=== PATIENT | female | born 1995 | race Caucasian/White ===

== ENCOUNTER 2020-01-08 08:35 | Outpatient (RCR) | payer OTHER, SELFPAY ==
[2020-01-08 10:11] LABS: Hematocrit 34.8 % (37.0-47.0); Hemoglobin 11.8 g/dL (12.0-15.0)
[2020-01-08 10:15] LABS: Glucose 1 Hour PP 50gm Dose 106 mg/dL
[2020-01-08 10:56] LABS: HIV 1/2 Ab P24 Ag Result Negative (Negative)
[2020-01-09 07:29] LABS: Rapid Plasma Reagin Non-Reactive (NonReactive)
[2020-01-09] MEDS: RHO(D) IMMUNE GLOBULIN 300 MCG SYRINGE IM (09:39)
== END 2020-04-06 23:59 | disposition home or self-care (01) ==
LOC: ANHLAB 08:35
PROVIDERS: PCP Family Medicine; Visit Provider Obstetrics & Gynecology
DX: Z29.13 Encounter for prophylactic Rho(D) immune globulin (principal); Z11.4 Encounter for screening for human immunodeficiency virus [HIV]; O36.0130 Maternal care for anti-D [Rh] antibodies, third trimester, not applicable or unspecified; Z3A.00 Weeks of gestation of pregnancy not specified
CPT/HCPCS: 36415; 82947; 85014; 85018; 85461; 86592; 86703; 90384; 96372; G0432; J2790

== ENCOUNTER 2020-02-09 13:24 | Observation (INO) | payer OTHER, SELFPAY ==
--- NOTE | 2020-02-09 13:24 | OBADM ---
This patient, Beatriz العلي Loveless, admitted to the OB room OB Post 116 for observation. Patient/family oriented to hospital policies and general routines including ID bracelet, bed and alarms, visiting hours, pain management, procedures, bathroom and other care routines, personal items, smoking policy, room service/diet, and visiting hours. Patient/Family are encouraged to report perceived risks to care and to ask questions if they do not understand what they are told or what they should do.
[2020-02-09 13:46] VITALS: BP 121/80; PULSE 106
[2020-02-09 14:27] LABS: Add Urine Microscopic? YES; Appearance Urine Cloudy (Clear); Bacteria Urine Trace /hpf; Bilirubin Urine Negative (Negative); Blood Urine Negative (Negative); Color Urine Yellow (Yellow); Glucose Urine UA Negative (Negative); Ketones Urine Negative (Negative); Leukocyte Esterase Ur 2+ LEU/UL (NEGATIVE); Mucus Urine Rare /lpf; Nitrate Urine Negative (Negative); Protein Urine Negative (Negative); Squamous Epithelial Cell Urine Many /hpf (Few); Urobilinogen Urine Negative mg/dL (<2.0); WBC Urine 16-20 /hpf (0-3)
[2020-02-09 14:30] VITALS: TEMP 36.2
[2020-02-09 15:30] VITALS: BMI 42.3
--- NOTE | 2020-02-11 07:27 | PM.OBTRLD ---
OB - Triage/Final Diagnosis Visit Information Date of evaluation: 02/09/20 Reason for evaluation: threatened labor Evaluation Laboratory results: Laboratory Tests 02/09/20 14:12 Urine Color Yellow Urine Appearance Cloudy H Urine pH 7.0 Ur Specific Pauline 1.010 Urine Protein Negative Urine Glucose (UA) Negative Urine Ketones Negative Ur Blood (Man) Negative Urine Nitrate Negative Urine Bilirubin Negative Urine Urobilinogen Negative Ur Leukocyte Esterase 2+ H Urine RBC 3-5 H Urine WBC 16-20 H Ur Squamous Epith Cells Many H Urine Bacteria Trace Urine Mucus Rare
== END 2020-02-09 15:00 | disposition home or self-care (01) ==
PROVIDERS: Advanced Practice Midwife; Admitting Provider Obstetrics & Gynecology; PCP Family Medicine; Visit Provider Obstetrics & Gynecology
DX: O47.9 False labor, unspecified (principal); Z3A.00 Weeks of gestation of pregnancy not specified
CPT/HCPCS: 81001; 87086; 87088; G0378; G0379

== ENCOUNTER 2020-03-01 14:44 | Observation (INO) | payer OTHER, SELFPAY ==
[2020-03-01 15:01] VITALS: BP 127/79; PULSE 108
[2020-03-01 15:12] VITALS: BMI 41.5
--- NOTE | 2020-03-01 15:12 | OBADM ---
This patient, Beatriz العلي Loveless, admitted to the OB room OB Post 117 for observation. Patient/family oriented to hospital policies and general routines including ID bracelet, bed and alarms, visiting hours, pain management, procedures, bathroom and other care routines, personal items, smoking policy, room service/diet, and visiting hours. Patient/Family are encouraged to report perceived risks to care and to ask questions if they do not understand what they are told or what they should do.
[2020-03-01 15:15] VITALS: BP 121/76; PULSE 105
[2020-03-01 15:30] VITALS: BP 98/81; PULSE 112
[2020-03-01 15:33] LABS: Add Urine Microscopic? YES; Appearance Urine Cloudy (Clear); Bacteria Urine Trace /hpf; Bilirubin Urine Negative (Negative); Blood Urine Negative (Negative); Color Urine Yellow (Yellow); Glucose Urine UA Negative (Negative); Ketones Urine Negative (Negative); Leukocyte Esterase Ur Negative LEU/UL (NEGATIVE); Mucus Urine Heavy /lpf; Nitrate Urine Negative (Negative); Protein Urine Negative (Negative); Squamous Epithelial Cell Urine Many /hpf (Few)
[2020-03-01 15:47] VITALS: BP 109/67; PULSE 106
[2020-03-01 15:58] VITALS: TEMP 36.6
[2020-03-01] MEDS: CYCLOBENZAPRINE HCL 10 MG TABLET PO (15:59)
--- NOTE | 2020-03-27 08:26 | PM.OBTRLD ---
OB - Triage/Final Diagnosis Evaluation Laboratory results: Laboratory Tests 03/01/20 15:19 Urine Color Yellow Urine Appearance Cloudy H Urine pH 6.0 Ur Specific [place] 1.020 Urine Protein Negative Urine Glucose (UA) Negative Urine Ketones Negative Ur Blood (Man) Negative Urine Nitrate Negative Urine Bilirubin Negative Urine Urobilinogen 2.0 H Ur Leukocyte Esterase Negative Urine RBC 3-5 H Urine WBC 4-6 H Ur Squamous Epith Cells Many H Urine Bacteria Trace Urine Mucus Heavy H Final Diagnosis (1) Back pain: Code(s): M54.9 - Dorsalgia, unspecified Status: Acute
== END 2020-03-01 16:40 | disposition home or self-care (01) ==
PROVIDERS: Admitting Provider Obstetrics & Gynecology; PCP Family Medicine; Visit Provider Obstetrics & Gynecology
DX: O99.893 Other specified diseases and conditions complicating puerperium (principal); M54.9 Dorsalgia, unspecified; Z3A.36 36 weeks gestation of pregnancy
CPT/HCPCS: 81001; 87086; 87088; A9270; G0378; G0379

== ENCOUNTER 2020-03-12 12:04 | Outpatient (CLI) | payer OTHER, SELFPAY ==
[2020-03-12 12:56] VITALS: BP 115/80
== END 2020-03-12 13:00 | disposition home or self-care (01) ==
LOC: ANHOBOP 12:51 → ANHLDR 12:52
PROVIDERS: PCP Family Medicine; Visit Provider Obstetrics & Gynecology
DX: O42.90 Premature rupture of membranes, unspecified as to length of time between rupture and onset of labor, unspecified weeks of gestation (principal); Z3A.00 Weeks of gestation of pregnancy not specified
CPT/HCPCS: 59025; 99199

== ENCOUNTER 2020-03-18 16:10 | Observation (INO) | payer OTHER, SELFPAY ==
--- NOTE | 2020-03-18 16:10 | OBADM ---
This patient, Beatriz العلي Loveless, admitted to the OB room Labor/Delivery/Recovery 106 for observation. Patient/family oriented to hospital policies and general routines including ID bracelet, bed and alarms, visiting hours, pain management, procedures, bathroom and other care routines, personal items, smoking policy, room service/diet, and visiting hours. Patient/Family are encouraged to report perceived risks to care and to ask questions if they do not understand what they are told or what they should do.
[2020-03-18 19:14] VITALS: BMI 44.2
--- NOTE | 2020-04-09 08:10 | PM.OBTRLD ---
OB - Triage/Final Diagnosis Final Diagnosis (1) False labor: Code(s): O47.9 - False labor, unspecified Status: Acute
== END 2020-03-18 19:31 | disposition home or self-care (01) ==
PROVIDERS: Admitting Provider Obstetrics & Gynecology; PCP Family Medicine; Visit Provider Obstetrics & Gynecology
DX: O47.9 False labor, unspecified (principal); Z3A.00 Weeks of gestation of pregnancy not specified
CPT/HCPCS: G0378; G0379

== ENCOUNTER 2020-03-18 23:02 | Inpatient (IN) | payer OTHER, SELFPAY ==
--- NOTE | 2020-03-18 23:37 | LDADM ---
This patient, Beatriz العلي Loveless, was admitted to Labor/Delivery/Recovery 106 on 03/18/20 at 23:02. Plans for labor, pain management and were discussed with patient. Patient/family oriented to hospital policies and general routines including ID bracelet, bed and alarms, visiting hours, pain management, procedures, bathroom and other care routines, personal items, smoking policy, room service/diet and guest tray routines, infant security routines, and visiting hours. Patient/Family are encouraged to report perceived risks to care and to ask questions if they do not understand what they are told or what they should do. See OBIX for further documentation.
[2020-03-18] MEDS: LACTATED RINGERS 1,000 ML 125 ML IV CONT (23:45)
[2020-03-18 23:49] VITALS: BMI 44.2
[2020-03-18 23:50] LABS: Basophils Absolute Auto 0.1 K/mm3 (0.0-0.1); Basophils Percent Auto 0.3 % (0.2-1.2); Eosinophils Absolute Auto 0.1 K/mm3 (0-0.3); Eosinophils Percent Auto 0.5 % (0-4.4); Hemoglobin 13.3 g/dL (12.0-15.0); Immature Granulocyte Absolute 0.13 K/mm3 (0.00-0.031); Immature Granulocyte Percent A 0.7 % (0-0.5); Lymphocytes Absolute Auto 2.37 K/mm3 (0.9-3.2); Lymphocytes Percent Auto 12.6 % (18.3-44.2); Mean Corpuscular HGB Conc 34.1 g/dl (32-36); Mean Corpuscular Hemoglobin 31.6 pg (26-34); Mean Corpuscular Volume 92.6 fl (80-100); Mean Platelet Volume 11.1 fl (7.4-10.4); Monocytes Percent Auto 5.1 % (2.6-8.5); Neutrophils Absolute Auto 15.3 K/mm3 (1.3-6.7); Neutrophils Percent Auto 80.8 % (45.5-73.1); Platelet Count Result 245 k/mm3 (150-375); Red Blood Count 4.21 M/mm3 (4.2-5.4); Red Cell Distribution Width 13.9 % (11.5-14.5); White Blood Count 18.9 K/mm3 (4.5-10.0)
[2020-03-18 23:55] VITALS: TEMP 36.1
[2020-03-19] VITALS (55 sets, daily range): BP systolic 97–151; BP diastolic 58–105; PULSE 78–133; RESP 18; TEMP 36.4–36.8; O2SAT 94–100
--- NOTE | 2020-03-19 00:41 | WPDANESEPP ---
Anes - Eval Pre Procedure Procedure: labor epidural Date/Time: 03/19/20 00:41 Surgeon: Kartik Preop Diagnosis: labor pain Pre Op Diagnosis: Contractios Patient Data Age: 24 Gender: F Height: 1.73 m Weight: 132 kg Last Vital Signs Temp 36.1 C L 03/18/20 23:55 Pulse 104 H 03/19/20 00:38 BP 124/73 03/19/20 00:38 Pulse Ox 98 03/19/20 00:38 Allergies Allergy/AdvReac Type Severity Reaction Status Date / Time No Known Allergies Allergy Unverified 04/30/18 13:31 Home Medications Medication Instructions Recorded Confirmed Type aspirin [Aspirin Low Dose] 81 mg PO DAILY 02/09/20 03/18/20 History Gummies 2 tablet PO DAILY 03/01/20 03/18/20 History Laboratory Tests 03/18/20 03/18/20 23:30 23:30 WBC 18.9 K/mm3 H K/mm3 (4.5-10.0) RBC 4.21 M/mm3 M/mm3 (4.2-5.4) Hgb 13.3 g/dL g/dL (12.0-15.0) Hct 39.0 % % (37.0-47.0) MCV 92.6 fl fl (80-100) MCH 31.6 pg pg (26-34) MCHC 34.1 g/dl g/dl (32-36) RDW 13.9 % % (11.5-14.5) Plt Count 245 k/mm3 k/mm3 (150-375) MPV 11.1 fl H fl (7.4-10.4) Immature Gran % (Auto) 0.7 % H % (0-0.5) Neut % (Auto) 80.8 % H % (45.5-73.1) Lymph % (Auto) 12.6 % L % (18.3-44.2) Lake % (Auto) 5.1 % % (2.6-8.5) Eos % (Auto) 0.5 % % (0-4.4) Baso % (Auto) 0.3 % % (0.2-1.2) Lymph # (Auto) 2.37 K/mm3 K/mm3 (0.9-3.2) Lake # (Auto) 1.0 K/mm3 H K/mm3 (0.1-0.6) Eos # (Auto) 0.1 K/mm3 K/mm3 (0-0.3) Baso # (Auto) 0.1 K/mm3 K/mm3 (0.0-0.1) Abs Immat Gran (auto) 0.13 K/mm3 H K/mm3 (0.00-0.031) Absolute Neuts (auto) 15.3 K/mm3 H K/mm3 (1.3-6.7) Absolute Nucleated RBC 0.0 K/mm3 K/mm3 (0.0-0.012) Nucleated RBC % 0.0 % % (0.0-0.2) RPR Pending Patient hx anesthesia problems: none Family hx anesthesia problems: none PMFSH Family History Family History Daughter Trisomy 21 Hypothyroidism Sibling Epilepsy Mother Hypothyroidism Social History Social History Smoking packs per day: 1 Smoking cigarettes per day: 20.0 Years smoked: 4 Smoking pack-years: 4.00 Smoking status: Heavy tobacco smoker Tobacco type: cigarettes Substance use: never Gender identity (if verbalized by the patient): Female Spiritual care concerns: No Exam Day of Procedure 03/19/20 00:41 Patient weight: obese Heart: regular rate and rhythm Lungs: clear to auscultation and normal air movement Airway: Mallampati scale class II Neurological: alert and oriented
[2020-03-19] MEDS: LACTATED RINGERS 1,000 ML 125 ML IV CONT (01:07)
[2020-03-19] MEDS: ONDANSETRON INJ 4 MG/2 ML VIAL IV PUSH (01:41)
[2020-03-19] MEDS: OXYTOCIN 30 UNITS/NS 500 ML 30 UNITS/500 ML BAG 999 UNITS IV CONT (02:30)
--- NOTE | 2020-03-19 02:43 | PM.OBPRVD ---
OB - Delivery Note Procedure Delivery date: 03/19/20 Intrapartal events: None Induction method: none Delivery monitor: external FHT and external uterine Route of delivery: Episiotomy description: None Laceration Description: None Estimated blood loss (mL): 76 Anesthesia type: Epidural [place] Baby Date of : 03/19/20 Time of : 02:23 Weeks of gestation at delivery: 38 gender: Male Weight (pounds): 7 Weight (ounces): 3 presentation: vertex position: Left Occiput Anterior Placenta delivery description: Spontaneous score one minute: 9 score five minutes: 9 Narrative: AROM upon arrival. . Large amount of bloody fluid with delivery. Cord gasses collected and handed off to staff.
[2020-03-19] MEDS: OXYTOCIN 30 UNITS/NS 500 ML 30 UNITS/500 ML BAG 125 UNITS IV CONT (03:04)
[2020-03-19] MEDS: ACETAMINOPHEN 325 MG TABLET 650 MG PO ×2 (04:37→16:37)
[2020-03-19] MEDS: WITCH HAZEL 40 PADS 1 PAD TOPICAL ×2 (04:42→07:15)
--- NOTE | 2020-03-19 05:01 | OBPPTRN ---
Patient transferred to post room #278 via wheelchair. Support person present. Oriented to unit, room, information board, rooming in, admission packet and security measures. Patient verbalizes understanding.
[2020-03-19] MEDS: IBUPROFEN 600 MG TABLET PO ×3 (05:22→23:26)
[2020-03-19] MEDS: DOCUSATE SODIUM 100 MG CAPSULE PO ×2 (07:15→16:37)
[2020-03-19] MEDS: MULTIVIT/MIN/PREN/FOL AC/IRON TABLET 1 TAB PO (07:15)
[2020-03-19] MEDS: BENZOCAINE 20% AER SPR (*SP) 56 GM CAN 1 SPRAY TOPICAL (07:15)
[2020-03-19] MEDS: LANOLIN (LANSINOH) 7.5 GM CREAM 1 APPLIC TOPICAL (07:16)
[2020-03-19] MEDS: ASPIRIN 81 MG ENTERIC TABLET PO (11:52)
[2020-03-19 12:17] LABS: Rapid Plasma Reagin Non-Reactive (NonReactive)
--- NOTE | 2020-03-19 12:45 | PC.NURSE ---
Addendum entered by Leatha Devlin RN 03/19/20 14:47: done at 1320 Original Note: Consulted with patient, mother reports has been sleepy at times and has supplemented due to concerns infant is not adequately feeding. infant eagerly fed for first feeding. Mother reports tenderness at times. Reviewed feeding cues, frequencies, duration of feedings, feeding elimination flow sheet, and signs of adequate intake. Demonstrated stimulation techniques to wake infant for feeding. Several minutes to wake . Small amounts of formula to entice to wake and initiate suckling. Assisted with infant to breast. Reviewed positioning/alignment in cross cradle, holding breast in U and guided asymmetrical latch on. Infant was able to latch correctly. nursed eagerly for short bursts followed with long pausing occasional swallowing noted. Reviewed signs of a correct latch, effective nursing and suck swallow ratio. was able to maintain latch without discomfort to mother. Nipple care reviewed. Suggested mother stimulate infant while feeding to keep awake and nursing effectively for increased intake and to assist with maintaining deep latch. Instructed mother to call out for RN assistance if she is unable to latch for feeding or she has discomfort with nursing. Instructed feeding should be initiated three hours from start of last feeding or if feeding cues are noted before. Mother voiced understanding of information shared.
--- NOTE | 2020-03-19 15:57 | PCCCNOTE ---
Care Coordination. Pt. referred to for financial resources. Met with pt. and FOB at bedside. Pt. reports this is her second baby. Pt. reports having an open case with [facility] around October 2018 regarding her first baby; the [facility] case has since been closed. Pt. reports their first baby suffered from down syndrome and last year while in their care at home. Pt's first baby had a trach in and pt. did not always have a pulse ox on her baby. When baby pulled out her trach, they were unaware baby stopped breathing. Pt. reports having all necessary baby care items and has tried to get set up with WIC [employer] but her and FOB makes too much money to qualify. Pt. reports plan is to return home with FOB and baby boy. Pt. reports having support from both sides of their immediate families. Pt. reports no substance use during and denies need for any community resources. Filed a report with [facility], Anabelle Aquino (Intake #[id number]) reports they will follow up with pt. and FOB here at the hospital. Filled out the CANTS 4 form. Will follow.
--- NOTE | 2020-03-19 16:30 | PC.NURSE ---
Nipple shield provided to mother due to []. Instructions given on application and cleaning of shield. Discussed nipple shield precautions and possible complications. Patient able to return demonstration on proper application of shield. Discussed the need to initiate pumping if infant continues to nurse with the shield. Patient verbalizes understanding.
[2020-03-20 05:57] LABS: Hematocrit 35.6 % (37.0-47.0); Hemoglobin 11.7 g/dL (12.0-15.0)
[2020-03-20] MEDS: IBUPROFEN 600 MG TABLET PO (07:15)
[2020-03-20] MEDS: MULTIVIT/MIN/PREN/FOL AC/IRON TABLET 1 TAB PO (07:15)
[2020-03-20] MEDS: LANOLIN (LANSINOH) 7.5 GM CREAM 1 APPLIC TOPICAL (07:15)
[2020-03-20] MEDS: DOCUSATE SODIUM 100 MG CAPSULE PO (07:16)
--- NOTE | 2020-03-20 07:42 | PM.OBPNVD ---
OB - PN: Subj Subjective Date/time seen: 03/20/20 07:42 Patient comments: no complaints baby status: doing well OB - PN: Obj Data Labs CBC & Chem 7: 03/20/20 04:23 Labs: Laboratory Results - last 24 hr 03/18/20 03/20/20 23:30 04:23 Hgb 11.7 L Hct 35.6 L RPR Non-reactive OB - PN A/P Plan day: 1 Plan: routine care and discharge home Time Spent With Patient Time: Total time spent is greater than 50% in coordination of care (as documented) at patient's floor/unit and/or counseling patient:
--- NOTE | 2020-03-20 07:42 | WPDANLDPN2 ---
Anes-Prog Note L&D Date/Time: 03/20/20 07:42 Comfortable throughout: labor and delivery Neuraxial method: epidural Epidural/Spinal procedure site: clean & non-tender Neuro status: Neuro function grossly intact. Cardiovascular status: normal Respiratory status: normal Airway patency: baseline Mental status: baseline Post-Op hydration status: normal Vital Signs: Last Vital Signs Temp 36.5 C 03/19/20 20:00 Pulse 100 03/19/20 20:00 Resp 18 03/19/20 20:00 BP 125/70 03/19/20 20:00 Pulse Ox 100 03/19/20 20:00 Pain score (VAS): 05/17 Post-procedural complaints: none Patient feedback: Patient satisfied with anesthetic care.
--- NOTE | 2020-03-20 07:43 | PM.OBDSVD ---
DS: Admitting Diagnosis Admitting Diagnosis Admitting Diagnosis: Contractios OB - DS: Summary OB Procedures : None OB Procedures Intrapartum: Spontaneous Vag Delivery OB Procedures: : None Time Spent with Patient Time attestation: Total time spent providing and/or coordinating discharge services: DS: Data Data Completed and Pending Pending studies at discharge: Pending at discharge 03/19/20 04:18 Surgical [PTH] Routine Labs on day of discharge: Labs from last 24 hours 03/20/20 03/18/20 04:23 23:30 Hgb 11.7 L Hct 35.6 L RPR Non-reactive Discharge Plan Discharge Attending physician on discharge: Alla Verdugo Discharging Clinician: Jimena Quesada Patient Disposition: Home, Self-Care Activity: pelvic rest Diet: regular Patient Instructions: Antibiotic Form Stand Alone Forms: General Discharge Information Follow-up/Referrals: Dalila Johnson CNM [Certified Nurse Supervisor [employer]] - 4 Weeks Discharge Medications: Continued Gummies 400 mcg-35 mg- 25 mg-5 mg Tablet,Chewable 2 tablet PO DAILY RF: 0 Discontinued aspirin [Aspirin Low Dose] 81 mg Tablet,Delayed Release (Dr/Ec) 81 mg PO DAILY RF: 0 Date of admission: 03/18/20 23:02 Primary Care Provider: Simón Gu Admitting Provider: Alla Verdugo Attending physician on admission: Alla Verdugo Condition: Stable
[2020-03-20 08:00] VITALS: BP 130/80; PULSE 90; RESP 18; TEMP 36.8; O2SAT 100
--- NOTE | 2020-03-20 08:45 | PC.NURSE ---
Consulted with patient, mother states she is supplementing after all feedings. Mother is concerned is not getting enough with and will continue until her milk is in. Mother is pumping after most feedings and will give EBM as part of supplement. Observed mother is able to put infant to breast using cross cradle guiding infant to breast. was able to latch correctly. nursed eagerly for short burst with long pausing and occasional swallowing noted. Reviewed signs of a correct latch, effective nursing and suck swallow ratio. was able to maintain latch without discomfort to mother. Suggested to stimulate infant while feeding to keep infant awake and nursing effectively for increase intake to assist with maintaining deep latch. Demonstrated how to adjust latch more deeply while feeding. Mother has a double electric breastpump for home use. Mother states she is comfortable using as she pumped and bottle fed with first child. Mother plans on discharge later to day. Mother is feeding as required and waking to feed if needed. is currently meeting outcomes for weight, output, jaundice and feeding frequencies. Mother states she feels confident to continue current feeding plan at home. Reviewed transition to breast milk, signs of adequate intake, and engorgement/relief. Instructed to call ICP if intake/output less than required. Discussed when to increase supplementation and not to discontinue supplementation until seen and discussed feeding plan with her ICP. Reviewed regular medications mother is taking. Information provided per Beena. Reviewed community resources on the [employer] website and in the Mom/Baby guide. Information on outpatient services provided. Mother has no further questions at this time.
--- NOTE | 2020-03-20 09:14 | PC.NURSE ---
Patient was given the opportunity to view the discharge video Mother & Baby Care, The First Two Weeks and to ask questions. Patient declined viewing the video and has been given the mother/baby guide for home reference.
--- NOTE | 2020-03-20 09:18 | PC.NURSE ---
Self care and infant care discharge instructions given including follow up visit grey and time. Mother verbalized understanding. No questions or concerns voiced.
--- NOTE | 2020-03-20 12:56 | PCCCNOTE ---
Care Coordination. Received call from [facility] primary burglary investigator, Korina [phone], who states baby will go home and receive in home services. Notified OB nurse of this decision.
--- NOTE | 2020-03-20 12:57 | PC.NURSE ---
Informed per Lexy from Care Coordination that can be released to mothers care and will continued to be monitored in house per DCFS.
--- NOTE | 2020-03-20 13:20 | PC.NURSE ---
Rhogam Lot #[id number] Exp: 07/13/21 given in Right gluteal at 1320. Pt. tolerated procedure well.
[2020-03-21 11:24] VITALS: BP 117/82; PULSE 114; RESP 20; O2SAT 98
== END 2020-03-20 14:05 | disposition home or self-care (01) | DRG 807 ==
LOC: ANHLDR 23:24 → ANHOB2 03-19 05:54
PROVIDERS: Advanced Practice Midwife; Admitting Provider Obstetrics & Gynecology; PCP Family Medicine; Visit Provider Obstetrics & Gynecology
DX: O99.334 Smoking (tobacco) complicating childbirth (principal); Z37.0 Single live birth; Z3A.38 38 weeks gestation of pregnancy; O99.214 Obesity complicating childbirth; F17.210 Nicotine dependence, cigarettes, uncomplicated; E66.9 Obesity, unspecified
CPT/HCPCS: 36415; 85014; 85018; 85025; 85461; 86592; 86850; 86900; 86901; 88307; 90384; A9270; J2405; J2590; J2790; J2795; J7120

== ENCOUNTER 2020-08-13 20:34 | Emergency (ER) | payer OTHER, SELFPAY ==
--- NOTE | ~2020-08-13 | CT_ITS ---
EXAMINATION: CTA chest PE protocol DATE: 08/13/2020 22:37 INDICATION: Shortness of breath and chest pain TECHNIQUE: Computed tomography angiography (CTA) of the chest was performed with 100 mL Omnipaque-350 intravenous contrast timed to evaluate the pulmonary arteries. Coronal maximum intensity projection 3D-reconstructions were created by the technologist. The dose-length product (DLP) was 790.94 mGy-cm. Automated exposure control and iterative reconstruction technique were employed. COMPARISON: None FINDINGS: Respiratory motion artifact slightly limits the examination. Opacification of the pulmonary arteries is fair. No pulmonary embolism is identified. There are patchy groundglass opacities throug hout all lung zones. No pleural effusion or pneumothorax is identified. No pathologically enlarged th oracic lymph nodes are identified. The heart size is normal. The visualized osseous structures are un remarkable. IMPRESSION: 1. No pulmonary embolism identified, sensitivity limited by respiratory motion and failure opacificat ion of the pulmonary arteries. 2. Diffuse patchy groundglass opacities which could reflect atypical pneumonia such as COVID 19. Reviewed, dictated and finalized at location A. IMPRESSION: 1. No pulmonary embolism identified, sensitivity limited by respiratory motion and failure opacification of the pulmonary arteries. 2. Diffuse patchy groundglass opacities which could reflect atypical pneumonia such as COVID 19.
--- NOTE | ~2020-08-13 | XR_ITS ---
EXAMINATION: XR chest 2V DATE: 08/13/2020 21:07 INDICATION: Right-sided chest pain, shortness of breath TECHNIQUE: PA and lateral views of the chest are obtained. COMPARISON: None available FINDINGS: There are minimal airspace opacities of the lung bases. There is no pleural effusion or pne umothorax. The cardiomediastinal silhouette is normal. The visualized bones and soft tissues are unre markable. IMPRESSION: 1. Minimal airspace opacities of the lung bases, consistent with atelectasis versus pneumonia. Reviewed, dictated and finalized at location A. IMPRESSION: 1. Minimal airspace opacities of the lung bases, consistent with atelectasis ve rsus pneumonia.
[2020-08-13 20:43] VITALS: BP 139/93; PULSE 100; RESP 20; TEMP 36.8; O2SAT 99
--- NOTE | 2020-08-13 20:43 | ECG_ITS ---
Measurements Intervals [place] Rate: 102 P: -22 RI: 125 QRS: 51 QRSD: 96 T: 39 QT: 376 QTc: 490 Interpretive Statements SINUS TACHYCARDIA INCOMPLETE RIGHT BUNDLE BRANCH BLOCK BORDERLINE ECG Electronically Signed On 08-14-2020 7:16:24 CDT by Roman Chavez D.O.
[2020-08-13] MEDS: SODIUM CHLORIDE 0.9% IV 1,000 ML 999 ML IV CONT (21:08)
[2020-08-13 21:15] VITALS: BP 115/62; PULSE 90; RESP 18; O2SAT 99
[2020-08-13 21:21] LABS: Basophils Absolute Auto 0.07 K/mm3 (0.00-0.10); Basophils Percent Auto 0.5 % (0.0-1.0); Eosinophils Absolute Auto 0.23 K/mm3 (0.02-0.50); Eosinophils Percent Auto 1.8 % (1.0-6.0); Hematocrit 38.6 % (35.0-49.0); Hemoglobin 12.8 g/dL (12.0-15.0); Immature Granulocyte Absolute 0.03 K/mm3 (0.00-0.00); Immature Granulocyte Percent A 0.2 % (0.0-0.0); Lymphocytes Absolute Auto 2.99 K/mm3 (1.10-4.50); Lymphocytes Percent Auto 23.1 % (18.0-42.0); Mean Corpuscular HGB Conc 33.2 g/dL (32.0-36.0); Mean Corpuscular Hemoglobin 29.6 pg (27.0-31.0); Mean Corpuscular Volume 89.1 fL (78.0-102.0); Mean Platelet Volume 11.4 fl (9.2-11.8); Monocytes Absolute Auto 0.73 K/mm3 (0.10-0.90); Monocytes Percent Auto 5.6 % (2.0-11.0); Neutrophils Absolute Auto 8.9 K/mm3 (1.7-7.2); Neutrophils Percent Auto 68.8 % (50.0-70.0); Platelet Count Result 254 K/mm3 (150-420); Red Blood Count 4.33 M/mm3 (4.20-5.40); Red Cell Distribution Width 13.5 % (11.6-14.4)
[2020-08-13 21:37] LABS: Alanine Aminotransferase 39 U/L (14-59); Albumin Level 3.1 g/dL (3.4-5.0); Alkaline Phosphatase 106 U/L (46-116); Anion Gap 7 mmol/L (8-16); Aspartate Amino Transferase 23 U/L (15-37); Bilirubin,Total 0.2 mg/dL (0.00-1.00); Blood Urea Nitrogen 9 mg/dL (7-18); Calcium 8.3 mg/dL (8.5-10.1); Carbon Dioxide 25 mmol/L (21-32); Chloride 103 mmol/L (98-108); Estimated CRCL calculation 123 ml/min; Estimated Glomerular Filt Rate > 60; Glucose 98 mg/dL (70-99); Osmolality Calculated 278 mOsm/kg (285-295); Potassium 3.9 mmol/L (3.5-5.1); Sodium 135 mmol/L (136-145); Total Protein 6.9 g/dL (6.4-8.2)
[2020-08-13 21:39] LABS: D Dimer 0.61 mg/L (0.19-0.50)
[2020-08-13 21:41] LABS: Troponin I < 4.0 ng/L (0.00-60.4)
[2020-08-13 21:57] VITALS: BP 119/75; PULSE 94; RESP 20; O2SAT 98
[2020-08-13 22:44] LABS: Pregnancy On Board Control Positive; Urine Pregnancy Test Positive
--- NOTE | 2020-08-13 23:07 | ED.CHESTPAIN ---
HPI - Chest Pain General Chief Complaint: Chest Pain Stated Complaint: chest pain Source: patient Mode of arrival: ambulatory Limitations: no limitations History of Present Illness HPI narrative: This is a 25-year-old female with right-sided chest pain started few hours ago sharp and painful with deep inspiration with no cough no congestion, there is no fever or chills no nausea vomiting no abdominal pain and no shortness of breath unless patient takes deep breath and then have some sharp right-sided upper chest pain. MD complaint: chest pain and chest discomfort Onset (ago): hour(s) Timing of current episode: constant Onset: during rest Pain location: right chest Severity: moderate Pain scale (0-10): 6 Quality: sharp Related Data Allergies Allergy/AdvReac Type Severity Reaction Status Date / Time No Known Allergies Allergy Unverified 04/30/18 13:31 Review of Systems Review of Systems: All systems reviewed & are unremarkable except as noted in HPI and below PMFSH Past Medical History Medical History Back pain Family History Family History Daughter Trisomy 21 Hypothyroidism Sibling Epilepsy Mother Hypothyroidism Social History Social History Smoking packs per day: 1 Smoking cigarettes per day: 20.0 Years smoked: 4 Smoking pack-years: 4.00 Smoking status: Heavy tobacco smoker Tobacco type: cigarettes Substance use: never Gender identity (if verbalized by the patient): Female Spiritual care concerns: No Exam Const: General: no acute distress and alert Orientation/consciousness: patient oriented x3 HENMT: Head: normal to inspection Eyes: Pupils: Equal, round and reactive pupils present Neck: Neck: normal visual inspection, no lymphadenopathy and no meningeal signs Chest: Chest palpation & inspection: normal inspection of the chest Resp: Effort & Inspection: normal respiratory effort Auscultation: clear to auscultation bilaterally Cardio: Rate: regular rate Rhythm: regular rhythm GI: Auscultation: normal bowel sounds : General: Yes no CVA tenderness Skin: General skin exam: normal color Neuro: General: patient oriented x3, moves all extremities and no meningeal signs Extrem: General: normal to inspection Psych: Appearance: grossly normal Mental Status: mental status grossly normal Course Course Emergency Course: Patient received 30 mg IV Toradol and after reassessment patient's pain has subsided, I reviewed lab findings and CT and showed no pulmonary embolism is suspicious for pneumonia /COVID pneumonia will check COVID prior to her discharge. Vital Signs Vital signs: Vital Signs Temperature 36.8 C 08/13/20 20:43 Pulse Rate 100 08/13/20 20:43 Respiratory Rate 20 08/13/20 20:43 Blood Pressure 139/93 H 08/13/20 20:43 Pulse Oximetry 99 08/13/20 20:43 Temperature 36.8 C 08/13/20 20:43 Pulse Rate 94 08/13/20 21:57 Respiratory Rate 20 08/13/20 21:57 Blood Pressure 119/75 08/13/20 21:57 Pulse Oximetry 98 08/13/20 21:57 MDM - Chest Pain Lab Data Result diagrams: 08/13/20 21:15 08/13/20 21:15 Labs: Lab Results 08/13/20 08/13/20 08/13/20 Range/Units 21:15 21:15 21:15 WBC 13.0 H (4.8-10.8) K/mm3 RBC 4.33 (4.20-5.40) M/mm3 Hgb 12.8 (12.0-15.0) g/dL Hct 38.6 (35.0-49.0) % MCV 89.1 (78.0-102.0) fL MCH 29.6 (27.0-31.0) pg MCHC 33.2 (32.0-36.0) g/dL RDW 13.5 (11.6-14.4) % Plt Count 254 (150-420) K/mm3 MPV 11.4 (9.2-11.8) fl Immature Gran % (Auto) 0.2 H (0.0-0.0) % Neut % (Auto) 68.8 (50.0-70.0) % Lymph % (Auto) 23.1 (18.0-42.0) % [place] % (Auto) 5.6 (2.0-11.0) % Eos % (Auto) 1.8 (1.0-6.0) % Baso % (Auto) 0.5 (0.0-1.0) % Lymph # (Auto) 2.99 (1
[2020-08-13 23:30] VITALS: BP 110/68; PULSE 90; RESP 16; O2SAT 99
[2020-08-13 23:48] LABS: SARS-CoV-2 Ag Negative (Negative)
[2020-08-13 23:59] VITALS: BP 117/64; PULSE 80; RESP 16; O2SAT 100
== END 2020-08-14 00:07 | disposition home or self-care (01) ==
PROVIDERS: Emergency Provider Emergency Medicine; PCP Family Medicine
DX: J18.9 Pneumonia, unspecified organism (principal); Z20.822 Contact with and (suspected) exposure to COVID-19
CPT/HCPCS: 36415; 71046; 71275; 80053; 81025; 84484; 85025; 85380; 87426; 93005; 96361; 96365; 99283; 99284; C9803; J0696; J7030; Q9967

== ENCOUNTER 2021-01-07 08:44 | Outpatient (RCR) | payer OTHER, SELFPAY ==
[2021-01-07 10:08] LABS: Hematocrit 36.9 % (37.0-47.0); Hemoglobin 12.3 g/dL (12.0-15.0)
[2021-01-07 10:29] LABS: Glucose 1 Hour PP 50gm Dose 81 mg/dL
[2021-01-07 11:28] LABS: HIV 1/2 Ab P24 Ag Result Negative (Negative)
[2021-01-08 09:47] LABS: Rapid Plasma Reagin Non-Reactive (NonReactive)
[2021-01-08] MEDS: RHO(D) IMMUNE GLOBULIN 300 MCG/2 ML SYRINGE IM (18:43)
== END 2021-04-07 23:59 | disposition home or self-care (01) ==
LOC: ANHLAB 08:44
PROVIDERS: PCP Family Medicine; Visit Provider Obstetrics & Gynecology
DX: Z11.4 Encounter for screening for human immunodeficiency virus [HIV] (principal); Z29.13 Encounter for prophylactic Rho(D) immune globulin; O36.0190 Maternal care for anti-D [Rh] antibodies, unspecified trimester, not applicable or unspecified; Z3A.00 Weeks of gestation of pregnancy not specified
CPT/HCPCS: 36415; 82947; 85014; 85018; 85461; 86592; 86703; 90384; G0432; J2790

== ENCOUNTER 2021-03-11 04:50 | Inpatient (IN) | payer OTHER, SELFPAY ==
[2021-03-11] VITALS (147 sets, daily range): BP systolic 86–141; BP diastolic 42–118; PULSE 67–158; RESP 16; TEMP 36.1–37.2; O2SAT 83–100; BMI 44.4
--- OUTSIDE RECORDS SUMMARY | 2021-03-11 04:55 | XMS_ITS ---
:1995 Author Care Team Providers Name Role Phone COLBY PALACIOS MD Primary Care Provider [phone] Allergies Code Code System Name Reaction Severity Status Onset NKDA ? Medications Name Status Start Date Stop Date ? ? amoxicillin 875 mg-potassium Active ? Not available clavulanate 125 mg tablet azithromycin 250 mg tablet Completed ? 09/10 TAKE 2 TABLETS BY MOUTH TODAY, THEN TAKE 1 TABLET DAILY FOR 4 D AYS Baby Aspirin Active ? Not available [id number] 50 Active ? Not available mg-300 mg-40 mg capsule cephalexin 500 mg capsule Completed ? 2020 Take 1 capsule twice a day by oral route for 7 days. metronidazole 500 mg tablet Active ? Not available hydrocodone 5 mg-acetaminophen 325 mg Active ? Not available tablet Active ? Not available + DHA Completed ? 04/21/2020 Problems Name Status Onset Date Source ? SNOMED CT Concept Unknown 04/09/2019 History Procedure Unknown 04/09/2019 History Unknown 09/20/2019 ? Active 09/10/2020 ? Procedures Date Name Performed by ? 04/07/2018 Colonoscopy Information not avai lable 05/08/2013 Tonsilectomy/adenoids Information not av ailable 08/30/2019 US, Obstetric, 1St Trimester [place] eer 2016 Roberta Garcia
--- OUTSIDE RECORDS SUMMARY | 2021-03-11 04:56 | XMS_ITS | Encounter Summary ---
:1995 Author Care Team Providers Name Role Phone Simón Gu MD Primary Care Provider [phone] Reason for Visit None recorded. Assessment and Plan 1. -induced hypertensio n Pt walked into the office want ing BP check. Pt states last night she started having swelling in her feet and pt checked BP and it was 147/86 last night and 149/94. This morning it was 142/82. Pt has a DALAL left frontal lobe. Pt tried Tylenol 2 hrs ago, not much relief yet. BP in office 134/90. Per SB wait 15 minutes and recheck. Recheck was 132/78. Per SB just get PIH labs here and monitor sxs. Can try Fioricet for DALAL. Rx sent. Pt informe d and will f/u in office on 02/04. Pt aware of probable GHTN dx and needing NSTs sooner . Gave precautions. Pt verbalized understanding. WENDY petersen ? non-stress test Discussion Note: None recorded.Patient educational handouts: No information available. Plan of Care Reminders Provider Appointments Ob Routine 03/18/2021 Alva Johnson, 11:15AM CNM ? Well on or around Dalila zafar, Woman-est 10/06/2021 CNM Lab None ? ? recorded. Referral None ? ? recorded. Procedures None ? ? recorded. Surgeries None ? ? recorded. Imaging Non-stress 02/18/2021 Fif[facility] canchola Test Medications Name Start Date ? ?
--- OUTSIDE RECORDS SUMMARY | 2021-03-11 04:56 | XMS_ITS | Encounter Summary ---
:1995 Author Care Team Providers Name Role Phone Simón Gu MD Primary Care Provider [phone] Reason for Visit None recorded. Assessment and Plan 1. Maternal obesity complicating , childbirth and the puerperium, antepartum ? US, obstetric, follow-up ? US, obstetric, biophysical profile + non-stress test Discussion Note: None recorded.Patient educational handouts: No information available. Plan of Care Reminders Provider Appointments Ob Routine 03/18/2021 Alva Johnson, 11:15AM CNM ? Well on or around Dalila zafar, Woman-est 10/06/2021 CNM Lab None ? ? recorded. Referral None ? ? recorded. Procedures None ? ? recorded. Surgeries None ? ? recorded. Imaging US, 02/25/2021 [facility], Follow-up ? US, 02/25/2021 [facility], Biophysical Profile + Non-stress Test Medications Name Start Date ? ? Baby Aspirin ? vvaaeobopz-mprgcdwxfcxsv-ljygofyx 50 mg-300 mg-40 mg c apsule ? Take 1 capsule every 4-6 hours by oral route as neede d. ? Medications Administered None recorded. Vitals None recorded. Results
--- OUTSIDE RECORDS SUMMARY | 2021-03-11 04:56 | XMS_ITS | Encounter Summary ---
:1995 Author Care Team Providers Name Role Phone Simón Gu MD Primary Care Provider [phone] Reason for Visit None recorded. Assessment and [...] CNM ? Well on or around Dalila Howell andrade, Woman-est 10/06/2021 CNM Lab None ? ? recorded. Referral None ? ? recorded. Procedures None ? ? recorded. Surgeries None ? ? recorded. Imaging Non-stress 02/11/2021 [facility] Test Medications Name Start Date ? ?
--- OUTSIDE RECORDS SUMMARY | 2021-03-11 04:56 | XMS_ITS | Encounter Summary ---
:1995 Author Care Team Providers Name Role Phone Simón Gu MD Primary Care Provider [phone] Reason for Visit None recorded. Assessment and [...] CNM ? Well on or around Dalila Dante zafar, Woman-est 10/06/2021 CNM Lab None ? ? recorded. Referral None ? ? recorded. Procedures None ? ? recorded. Surgeries None ? ? recorded. Imaging Non-stress 03/08/2021 [facility] Test Medications Name Start Date ? ?
--- OUTSIDE RECORDS SUMMARY | 2021-03-11 04:56 | XMS_ITS | Encounter Summary ---
:1995 Author Care Team Providers Name Role Phone Simón Gu MD Primary Care Provider [phone] Reason for Visit OB visit Assessment and Plan Assessment Note Patient is ___weeks . Discu ssed plan. 1. Routine care Discussion Note: None recorded.Patient educational handouts: No information available. Plan of Care Reminders Provider Appointments Ob Routine 03/18/2021 Alva garay Elizabeth, 11:15AM CNM ? Well on or around Dalila zafar, Woman-est 10/06/2021 CNM Lab None ? ? recorded. Referral None ? ? recorded. Procedures None ? ? recorded. Surgeries None ? ? recorded. Imaging None ? ? recorded. Medications Name Start Date ? ? Baby Aspirin ? dhulqrmyqa-tkdqfxfzzexml-ouosjoni 50 mg-300 mg-40 mg c apsule ? Take 1 capsule every 4-6 hours by oral route as neede d. ? Medications Administered None recorded. Vitals Height Weight BMI Blood Pressure 5 ft 9 in 300 lbs 44.3 kg/m2 126/81 mm[Hg] Results Lab Results None recorded. Allergies Code Code System Name Reaction Severity Onset NKDA ?
--- OUTSIDE RECORDS SUMMARY | 2021-03-11 04:56 | XMS_ITS | Encounter Summary ---
:1995 Author Care Team Providers Name Role Phone Simón Gu MD Primary Care Provider [phone] Reason for Visit OB visit 35wks Assessment and Plan 1. Routine care Discussion Note: None recorded.Patient [...] Start Date ? ? Baby Aspirin ? peeeczjvrk-avfsccgzdmprb-wfzfecjk 50 mg-300 mg-40 mg c apsule ? Take 1 capsule every 4-6 hours by oral route as neede d. ? Medications Administered None recorded. Vitals Height Weight BMI Blood Pressure 5 ft 9 in 301 lbs 44.4 kg/m2 138/74 mm[Hg] Results Lab Results None recorded. Allergies Code Code System Name Reaction Severity Onset NKDA ? ? ? Problems Name Status Onset Date Source ?
--- OUTSIDE RECORDS SUMMARY | 2021-03-11 04:56 | XMS_ITS | Encounter Summary ---
:1995 Author Care Team Providers Name Role Phone Simón Gu MD Primary Care Provider [phone] Reason for Visit None recorded. Assessment and [...] Surgeries None ? ? recorded. Imaging Non-stress 02/22/2021 [facility] Test Medications Name Start Date ? ?
--- OUTSIDE RECORDS SUMMARY | 2021-03-11 04:56 | XMS_ITS | Encounter Summary ---
:1995 Author Care Team Providers Name Role Phone Simón Gu MD Primary Care Provider [phone] Reason for Visit None recorded. Assessment and [...] Surgeries None ? ? recorded. Imaging Non-stress 02/25/2021 [facility] Test Medications Name Start Date ? ?
--- OUTSIDE RECORDS SUMMARY | 2021-03-11 04:56 | XMS_ITS | Encounter Summary ---
:1995 Author Care Team Providers Name Role Phone Simón Gu MD Primary Care Provider [phone] Reason for Visit OB visit Assessment and [...] Start Date ? ? Baby Aspirin ? ufvwttlnyn-jqnmbjpxftlrs-fslfmnim 50 mg-300 mg-40 mg c apsule ? Take 1 capsule every 4-6 hours by oral route as neede d. ? Medications Administered None recorded. Vitals Height Weight BMI Blood Pressure 5 ft 9 in 297 lbs 43.9 kg/m2 133/79 mm[Hg] Results Lab Results None recorded. Allergies Code Code System Name Reaction Severity Onset NKDA ?
--- OUTSIDE RECORDS SUMMARY | 2021-03-11 04:56 | XMS_ITS | Encounter Summary ---
:1995 Author Care Team Providers Name Role Phone Simón Gu MD Primary Care Provider [phone] Reason for Visit None recorded. Assessment and [...] Surgeries None ? ? recorded. Imaging Non-stress 03/01/2021 [facility] Test Medications Name Start Date ? ?
--- OUTSIDE RECORDS SUMMARY | 2021-03-11 04:56 | XMS_ITS | Encounter Summary ---
:1995 Author Care Team Providers Name Role Phone Simón Gu MD Primary Care Provider [phone] Reason for Visit None recorded. Assessment and [...] Surgeries None ? ? recorded. Imaging Non-stress 02/08/2021 [facility] Test Medications Name Start Date ? ?
--- OUTSIDE RECORDS SUMMARY | 2021-03-11 04:56 | XMS_ITS | Encounter Summary ---
:1995 Author Care Team Providers Name Role Phone Simón Gu MD Primary Care Provider [phone] Reason for Visit OB visit OB [id number] EDC 04/01/2021 LMP 06/08/2020 Assessment and Plan Assessment Note Patient is [...] Start Date ? ? Baby Aspirin ? rwqyljilfy-vcsjdzqirfrwp-fhjjdcrd 50 mg-300 mg-40 mg c apsule ? Take 1 capsule every 4-6 hours by oral route as neede d. ? Medications Administered None recorded. Vitals Height Weight BMI Blood Pressure 5 ft 9 in 303 lbs 44.7 kg/m2 137/86 mm[Hg] Results Lab Results None recorded. Allergies Code Code System Name Reaction Severity Onset
--- OUTSIDE RECORDS SUMMARY | 2021-03-11 04:56 | XMS_ITS | Encounter Summary ---
:1995 Author Care Team Providers Name Role Phone Simón Gu MD Primary Care Provider [phone] Reason for Visit None recorded. Assessment and [...] Surgeries None ? ? recorded. Imaging Non-stress 02/15/2021 [facility] Test Medications Name Start Date ? ?
--- OUTSIDE RECORDS SUMMARY | 2021-03-11 04:56 | XMS_ITS | Encounter Summary ---
:1995 Author Care Team Providers Name Role Phone Simón Gu MD Primary Care Provider [phone] Reason for Visit None recorded. Assessment and Plan 1. Reduced movement ? non-stress test Discussion Note: None recorded.Patient educational handouts: No information available. Plan of Care Reminders Provider Appointments Ob Routine 03/18/2021 Alva Johnson, 11:15AM CNM ? Well on or around Dalila zafar, Woman-est 10/06/2021 CNM Lab None ? ? recorded. Referral None ? ? recorded. Procedures None ? ? recorded. Surgeries None ? ? recorded. Imaging Non-stress 03/03/2021 [place] [facility] Medications Name Start Date ? ? Baby Aspirin ? xetalnqhiy-qyhkifhxfmgcb-khahdwkx 50 mg-300 mg-40 mg c apsule ? Take 1 capsule every 4-6 hours by oral route as neede d. ? Medications Administered None recorded. Vitals None recorded. Results Lab Results None recorded. Allergies Code Code System Name Reaction Severity Onset NKDA ? ? ? Problems Name Status Onset Date Source ? Act
--- OUTSIDE RECORDS SUMMARY | 2021-03-11 04:56 | XMS_ITS | Encounter Summary ---
:1995 Author Care Team Providers Name Role Phone Simón Gu MD Primary Care Provider [phone] Reason for Visit OB visit 34wks Assessment and Plan 1. Routine care Discussion [...] Start Date ? ? Baby Aspirin ? jkzxyrftri-lftezbdtmjzjx-vwndpglh 50 mg-300 mg-40 mg c apsule ? Take 1 capsule every 4-6 hours by oral route as neede d. ? Medications Administered None recorded. Vitals Height Weight BMI Blood Pressure 5 ft 9 in 299 lbs 44.2 kg/m2 138/78 mm[Hg] Results Lab Results None recorded. Allergies Code Code System Name Reaction Severity Onset NKDA ? ? ? Problems Name Status Onset Date Source ?
--- OUTSIDE RECORDS SUMMARY | 2021-03-11 04:57 | XMS_ITS | Encounter Summary ---
:1995 Author Care Team Providers Name Role Phone Simón Gu MD Primary Care Provider [phone] Reason for Visit OB visit Assessment and Plan Assessment Note Patient is ___weeks . Discu ssed plan. 1. Elevated blood pressure ? CBC w/ auto diff ? CMP, serum or plasma Discussion Note: None recorded.Patient educational handouts: No information available. Plan of Care Reminders Provider Appointments Ob Routine 03/18/2021 Alva Johnson, 11:15AM CNM ? Well on or around Dalila zafar, Woman-est 10/06/2021 CNM Lab CBC W/ 01/14/2021 [facility] (Lab) ? CMP, Serum 01/14/2021 [facility] or Plasma [facility] (Lab) Referral None ? ? recorded. Procedures None ? ? recorded. Surgeries None ? ? recorded. Imaging None ? ? recorded. Medications Name Start Date ? ? Baby Aspirin ? jdqwlvcnqu-rpwiamoyjqoiv-xmgekreb 50 mg-300 mg-40 mg c apsule ? Take 1 capsule every 4-6 hours by oral route as neede d. ? Medications Administered None recorded. Vitals Height Weight
--- OUTSIDE RECORDS SUMMARY | 2021-03-11 04:57 | XMS_ITS | Encounter Summary ---
:1995 Author Care Team Providers Name Role Phone Simón Gu MD Primary Care Provider [phone] Reason for Visit OB visit 27wks Assessment and Plan 1. Routine care Discussion [...] Start Date ? ? Baby Aspirin ? ykzuzikser-saadrnxcjatpz-mvobdgwv 50 mg-300 mg-40 mg c apsule ? Take 1 capsule every 4-6 hours by oral route as neede d. ? Medications Administered None recorded. Vitals Height Weight BMI Blood Pressure 5 ft 9 in 284 lbs 41.9 kg/m2 121/82 mm[Hg] Results Lab Results None recorded. Allergies Code Code System Name Reaction Severity Onset NKDA ? ? ? Problems Name Status Onset Date Source ?
--- OUTSIDE RECORDS SUMMARY | 2021-03-11 04:57 | XMS_ITS | Encounter Summary ---
:1995 Author Care Team Providers Name Role Phone Simón Gu MD Primary Care Provider [phone] Reason for Visit None recorded. Assessment and [...] Gave precautions. Pt verbalized understanding. WENDY petersen Discussion Note: None recorded.Patient educational handouts: No [...] Start Date ? ? Baby Aspirin ? wattsccbkm-uxaxyhdltsvzj-wg
--- OUTSIDE RECORDS SUMMARY | 2021-03-11 04:57 | XMS_ITS | Encounter Summary ---
:1995 Author Care Team Providers Name Role Phone Simón Gu MD Primary Care Provider [phone] Reason for Visit None recorded. Assessment and Plan 1. Breech presentation ? US, obstetric, follow-up Discussion Note: None recorded.Patient educational handouts: No information available. Plan of Care Reminders Provider Appointments Ob Routine 03/18/2021 Alva garay Percytwila, 11:15AM CNM ? Well on or around Dalila zafar, Woman-est 10/06/2021 CNM Lab None ? ? recorded. Referral None ? ? recorded. Procedures None ? ? recorded. Surgeries None ? ? recorded. Imaging US, 01/28/2021 [place] [facility], Follow-up Medications Name Start Date ? ? Baby Aspirin ? qxjfiitsok-bxkpyhxwqmlnd-eriahmpg 50 mg-300 mg-40 mg c apsule ? Take 1 capsule every 4-6 hours by oral route as neede d. ? Medications Administered None recorded. Vitals None recorded. Results Lab Results None recorded. Allergies Code Code System Name Reaction Severity Onset NKDA ? ? ? Problems Name Status Onset Date Source ?
--- OUTSIDE RECORDS SUMMARY | 2021-03-11 04:57 | XMS_ITS | Encounter Summary ---
:1995 Author Care Team Providers Name Role Phone Simón uG MD Primary Care Provider [phone] Reason for Visit None recorded. Assessment and Plan 1. AND/OR placental disord er affecting management of mother ? US, obstetric, follow-up Discussion Note: None recorded.Patient educational handouts: No information available. Plan of Care Reminders Provider Appointments Ob Routine 03/18/2021 Alva Johnson, 11:15AM CNM ? Well on or around Dalila Dante zafar, Woman-est 10/06/2021 CNM Lab None ? ? recorded. Referral None ? ? recorded. Procedures None ? ? recorded. Surgeries None ? ? recorded. Imaging US, 12/31/2020 [facility], Follow-up Medications Name Start Date ? ? Baby Aspirin ? smmwwvmdbj-xiiaechtpzlno-ujaejixh 50 mg-300 mg-40 mg c apsule ? Take 1 capsule every 4-6 hours by oral route as neede d. ? Medications Administered None recorded. Vitals None recorded. Results Lab Results None recorded. Allergies Code Code System Name Reaction Severity Onset NKDA ? ? ? Problems Name Status Onset Date Source ?
--- OUTSIDE RECORDS SUMMARY | 2021-03-11 04:57 | XMS_ITS | Encounter Summary ---
:1995 Author Care Team Providers Name Role Phone Simón Gu MD Primary Care Provider [phone] Reason for Visit None recorded. Assessment and Plan 1. Maternal obesity complicating , childbirth and the puerperium, antepartum ? non-stress test Discussion Note: None recorded.Patient educational handouts: No information available. Plan of Care Reminders Provider Appointments Ob Routine 03/18/2021 Alva garay Danteandrade, 11:15AM CNM ? Well on or around Dalila zafar, Woman-est 10/06/2021 CNM Lab None ? ? recorded. Referral None ? ? recorded. Procedures None ? ? recorded. Surgeries None ? ? recorded. Imaging Non-stress 02/04/2021 [facility] Test Medications Name Start Date ? ? Baby Aspirin ? qmewubjlmo-zzxkvmscqmxyn-yyxipboy 50 mg-300 mg-40 mg c apsule ? Take 1 capsule every 4-6 hours by oral route as neede d. ? Medications Administered None recorded. Vitals None recorded. Results Lab Results None recorded. Allergies Code Code System Name Reaction Severity Onset NKDA ? ? ? Problems Name Status Onset Date Source ?
--- OUTSIDE RECORDS SUMMARY | 2021-03-11 04:57 | XMS_ITS | Encounter Summary ---
:1995 Author Care Team Providers Name Role Phone Simón Gu MD Primary Care Provider [phone] Reason for Visit OB problem; blood pressure Assessment and Plan 1. Routine care Discussion Note: None recorded.Patient educational handouts: No information available. Plan of Care Reminders Provider Appointments Ob Routine 03/18/2021 Avla Johnson, 11:15AM CNM ? Well on or around Dalila zafar, Woman-est 10/06/2021 CNM Lab None ? ? recorded. Referral None ? ? recorded. Procedures None ? ? recorded. Surgeries None ? ? recorded. Imaging None ? ? recorded. Medications Name Start Date ? ? Baby Aspirin ? nkzzvwnoyg-smrokjjeivuak-gbgpyncu 50 mg-300 mg-40 mg c apsule ? Take 1 capsule every 4-6 hours by oral route as neede d. ? Medications Administered None recorded. Vitals Height Weight BMI Blood Pressure 5 ft 9 in 294 lbs 43.4 kg/m2 131/78 mm[Hg] Results Lab Results None recorded. Allergies Code Code System Name Reaction Severity Onset NKDA ? ? ? Problems Name Status Onset Date Source ?
[2021-03-11] MEDS: LACTATED RINGERS 1,000 ML 125 ML IV CONT ×2 (05:30→08:12)
[2021-03-11] MEDS: OXYTOCIN 30 UNITS/NS 500 ML 30 UNITS/500 ML BAG IV CONT (05:30)
[2021-03-11 06:15] LABS: Basophils Percent Auto 0.3 % (0.2-1.2); Eosinophils Percent Auto 0.6 % (0-4.4); Hematocrit 35.4 % (37.0-47.0); Hemoglobin 11.8 g/dL (12.0-15.0); Immature Granulocyte Absolute 0.03 K/mm3 (0.00-0.031); Immature Granulocyte Percent A 0.4 % (0-0.5); Lymphocytes Absolute Auto 1.22 K/mm3 (0.9-3.2); Lymphocytes Percent Auto 17.4 % (18.3-44.2); Mean Corpuscular HGB Conc 33.3 g/dl (32-36); Mean Corpuscular Hemoglobin 31.1 pg (26-34); Mean Corpuscular Volume 93.2 fl (80-100); Mean Platelet Volume 11.7 fl (7.4-10.4); Monocytes Absolute Auto 0.7 K/mm3 (0.1-0.6); Monocytes Percent Auto 10.5 % (2.6-8.5); Neutrophils Percent Auto 70.8 % (45.5-73.1); Platelet Count Result 189 k/mm3 (150-375); Red Cell Distribution Width 13.9 % (11.5-14.5)
[2021-03-11 06:22] LABS: Alanine Aminotransferase 52 U/L (4-35); Albumin Level 3.6 g/dL (3.5-5.1); Alkaline Phosphatase 244 U/L (38-126); Anion Gap 8 mmol/L (8-16); Aspartate Amino Transferase 36 U/L (14-36); Bilirubin,Total 0.3 mg/dL (0.2-1.3); Blood Urea Nitrogen 10 mg/dL (7-17); Calcium 8.7 mg/dL (8.4-10.2); Carbon Dioxide 21 mmol/L (22-30); Chloride 107 mmol/L (98-107); Estimated CRCL calculation 185 ml/min; Estimated Glomerular Filt Rate > 60; Glucose 111 mg/dL (65-110); Potassium 3.5 mmol/L (3.4-5.0); Sodium 136 mmol/L (137-145)
--- NOTE | 2021-03-11 07:53 | WPDOBADMIT ---
Obstetrics - Admit Note Admission Note: 25 y/o @ 37 weeks here for induction d/t GHTN. VSS Contractions irregular FHR category 1 Cervix /-3 AROM performed. Moderate amount of clear odorless fluid. Anticpate record reviewed. No pertinent additions to the history and/or any subsequent changes in the physical findings that are not consistent with the expected course of the were found. Additions to the history and/or subsequent changes in the physical findings follow. None.
--- NOTE | 2021-03-11 08:25 | WPDANESEPPF ---
Anes - Initial Pre Proc Eval Date/Time: 03/11/21 08:25 Surgeon: Alla Verdugo MD Pre Op Diagnosis: Induction of Labor Patient Data Age: 25 Gender: F Height: 1.75 m Weight: 136.5 kg Last Vital Signs Temp 36.6 C 03/11/21 05:07 Pulse 101 H 03/11/21 08:01 BP 130/74 03/11/21 08:01 Pulse Ox 98 03/11/21 08:24 Allergies Allergy/AdvReac Type Severity Reaction Status Date / Time No Known Allergies Allergy Unverified 04/30/18 13:31 Home Medications Medication Instructions Recorded Confirmed Type PNV cmb#95-ferrous fumarate-FA 1 tablet PO DAILY 03/04/21 03/04/21 History [] Laboratory Tests 03/11/21 03/11/21 03/11/21 05:18 05:18 05:18 WBC 7.0 K/mm3 K/mm3 (4.5-10.0) RBC 3.80 M/mm3 L M/mm3 (4.2-5.4) Hgb 11.8 g/dL L g/dL (12.0-15.0) Hct 35.4 % L % (37.0-47.0) MCV 93.2 fl fl (80-100) MCH 31.1 pg pg (26-34) MCHC 33.3 g/dl g/dl (32-36) RDW 13.9 % % (11.5-14.5) Plt Count 189 k/mm3 k/mm3 (150-375) MPV 11.7 fl H fl (7.4-10.4) Immature Gran % (Auto) 0.4 % % (0-0.5) Neut % (Auto) 70.8 % % (45.5-73.1) Lymph % (Auto) 17.4 % L % (18.3-44.2) [place] % (Auto) 10.5 % H % (2.6-8.5) Eos % (Auto) 0.6 % % (0-4.4) Baso % (Auto) 0.3 % % (0.2-1.2) Lymph # (Auto) 1.22 K/mm3 K/mm3 (0.9-3.2) [place] # (Auto) 0.7 K/mm3 H K/mm3 (0.1-0.6) Eos # (Auto) 0.0 K/mm3 K/mm3 (0-0.3) Baso # (Auto) 0.0 K/mm3 K/mm3 (0.0-0.1) Abs Immat Gran (auto) 0.03 K/mm3 K/mm3 (0.00-0.031) Absolute Neuts (auto) 5.0 K/mm3 K/mm3 (1.3-6.7) Absolute Nucleated RBC 0.0 K/mm3 K/mm3 (0.0-0.012) Nucleated RBC % 0.0 % % (0.0-0.2) Sodium Potassium Chloride Carbon Dioxide Anion Gap BUN Creatinine Estim Creat Clear Calc Estimated GFR Glucose Uric Acid 5.0 mg/dL mg/dL (2.5-7.5) Calcium Total Bilirubin AST ALT Alkaline Phosphatase Total Protein Albumin RPR Pending 03/11/21 05:18 WBC RBC Hgb Hct MCV MCH MCHC RDW Plt Count MPV Immature Gran % (Auto) Neut % (Auto) Lymph % (Auto) [place] % (Auto) Eos % (Auto) Baso % (Auto) Lymph # (Auto) [place] # (Auto) Eos # (Auto) Baso # (Auto) Abs Immat Gran (auto) Absolute Neuts (auto) Absolute Nucleated RBC Nucleated RBC % Sodium 136 mmol/L L mmol/L (137-145) Potassium 3.5 mmol/L mmol/L (3.4-5.0) Chloride 107 mmol/L mmol/L (98-107) Carbon Dioxide 21 mmol/L L mmol/L (22-30) Anion Gap 8 mmol/L mmol/L (8-16) BUN 10 mg/dL mg/dL (7-17) Creatinine 0.60 mg/dL L mg/dL (0.7-1.0) Estim Creat Clear Calc 185 ml/min ml/min Estimated GFR > 60 (59 - ) Glucose 111 mg/dL H mg/dL (65-110) Uric Acid Calcium 8.7 mg/dL mg/dL (8.4-10.2) Total Bilirubin 0.3 mg/dL mg/dL (0.2-1.3) AST 36 U/L U/L (14-36) ALT 52 U/L H U/L (4-35) Alkaline Phosphatase 244 U/L H U/L (38-126) Total Protein 7.0 g/dL g/dL (6.3-8.2) Albumin 3.6 g/dL g/dL (3.5-5.1) RPR Patient hx anesthesia problems: none Family hx anesthesia problems: none Results Review: All pre-operative results and documents have been reviewed as part of the pre-operative evaluation. [facility] Past Medical History Medical History (Updated 03/11/21 @ 08:26 by Rodrigo Smith MD) Back pain Morbid obesity with BMI of 40.0-44.9, adult PIH ( induced hypertension) Family History Family History (Reviewed 04
[2021-03-11 15:19] LABS: Rapid Plasma Reagin Non-Reactive (NonReactive)
--- NOTE | 2021-03-11 16:06 | PM.OBPRVD ---
OB - Delivery Note Procedure Delivery date: 03/11/21 events: Induced HTN Intrapartal events: None Induction method: per pitocin protocol Delivery monitor: external FHT, external uterine and internal uterine Route of delivery: Episiotomy description: None Laceration Description: None Quantitative Blood Loss (ml): 21 Anesthesia type: Epidural Narrative: Mother and baby in stable condition. Cord gasses collected and handed off to staff. Baby Date of : 03/11/21 Time of : 15:53 Weeks of gestation at delivery: 37 Infant gender: Female Weight (pounds): 6 Weight (ounces): 12 presentation: vertex position: Left Occiput Anterior Placenta delivery description: Spontaneous cord vessel description: Delayed Cord Clamping
--- NOTE | 2021-03-11 18:34 | OBPPTRN ---
Patient transferred to post room # 290 via wheelchair. Support person present. Oriented to unit, room, information board, rooming in, admission packet and security measures. Patient verbalizes understanding.
[2021-03-11] MEDS: IBUPROFEN 600 MG TABLET PO (18:58)
[2021-03-12 00:59] VITALS: BP 130/72; PULSE 98; RESP 16; TEMP 36.6; O2SAT 100
[2021-03-12 04:11] VITALS: BP 125/80; PULSE 87; RESP 16; TEMP 36.3; O2SAT 100
[2021-03-12] MEDS: IBUPROFEN 600 MG TABLET PO (04:14)
[2021-03-12 04:56] LABS: Hemoglobin 11.6 g/dL (12.0-15.0)
[2021-03-12] MEDS: ACETAMINOPHEN 325 MG TABLET 650 MG PO (07:37)
[2021-03-12] MEDS: MULTIVIT/MIN/PREN/FOL AC/IRON TABLET 1 TAB PO (07:37)
[2021-03-12] MEDS: TETANUS,DIPHTHERIA,AC PERTUSSIS ADULT (0.5 ML) BOOSTRIX IM (07:38)
--- NOTE | 2021-03-12 07:47 | PM.OBPNVD ---
OB - PN: Subj Subjective Date/time seen: 03/12/21 07:47 Patient comments: no complaints baby status: doing well OB - PN: Obj Data Labs CBC & Chem 7: 03/12/21 04:19 03/11/21 05:18 Labs: Laboratory Results - last 24 hr 03/11/21 03/11/21 03/12/21 05:18 05:18 04:19 Hgb 11.6 L Hct 36.0 L RPR Non-reactive Blood Type O Negative Antibody Screen Negative OB - PN A/P Plan day: 1 Plan: routine care Time Spent With Patient Time: Total time spent is greater than 50% in coordination of care (as documented) at patient's floor/unit and/or counseling patient: Review of Systems Review of Systems: All systems reviewed & are unremarkable except as noted in HPI and below Exam Const: General: cooperative, healthy appearing and comfortable
--- NOTE | 2021-03-12 07:54 | PM.OBDSVD ---
DS: Admitting Diagnosis Discharge Date 03/12/21 Admitting Diagnosis MIL OB - DS: Summary OB Procedures : None OB Procedures Intrapartum: Spontaneous Vag Delivery OB Procedures: : None Time Spent with Patient Time attestation: Total time spent providing and/or coordinating discharge services: DS: Data Data Completed and Pending Pending studies at discharge: Pending at discharge 03/11/21 16:00 Surgical [PTH] Routine Labs on day of discharge: Labs from last 24 hours 03/12/21 03/11/21 03/11/21 04:19 05:18 05:18 Hgb 11.6 L Hct 36.0 L RPR Non-reactive Blood Type O Negative Antibody Screen Negative Discharge Plan Discharge Attending physician on discharge: Alla Verdugo Discharging Clinician: Jimena Quesada Patient Disposition: Home, Self-Care Activity: pelvic rest Diet: regular Patient Instructions: Antibiotic Form, How to Stop Smoking (DC) Stand Alone Forms: General Discharge Information Follow-up/Referrals: Dalila Johnson CNM [Certified Nurse [employer]] - 4 Weeks Discharge Medications: New ibuprofen 600 mg Tablet 600 mg PO Q6H PRN (Reason: Cramping) Qty: 30 RF: 0 Continued PNV cmb#95-ferrous fumarate-FA [] 28 mg iron- 800 mcg Tablet 1 tablet PO DAILY RF: 0 Date of admission: 03/11/21 04:50 Primary Care Provider: Simón Gu Admitting Provider: Alla Verdugo Attending physician on admission: Alla Verdugo Condition: Stable
[2021-03-12 08:20] VITALS: BP 137/92; PULSE 85; RESP 18; TEMP 36; O2SAT 99
--- NOTE | 2021-03-12 09:45 | PC.NURSE ---
Mother called out for assist with feeding. Mother reports infant is sleepy at times. Mother states will eagerly latch with freq sleeping during feeding. Infant is able to freely thrust tongue past gum ridge and flange both lips. Skin is intact on both nipples, no redness and bruising noted. Discussed establishing in the late may be more difficult due to their immaturity, infant may be less alert, have less stamina, and have greater difficulty with latch, suck, and swallow. Infant?s feeding may impact mother?s milk supply, pumping may need to be initiated until milk supply is well established and infant is able to effective without supplementation. Reviewed infant feeding cues, frequencies, duration of feedings, feeding elimination flow sheet, and signs of adequate intake. Demonstrated stimulation techniques to wake infant for feeding. Assisted with to breast. Reviewed positioning/alignment in cross cradle, holding breast in ?U? hold and guided asymmetrical latch on. Reviewed rational for each. able to latch correctly within a few attempts. Infant nursed eagerly with steady draws and occasional swallowing noted, with freq long pausing noted. Reviewed signs of a correct latch, effective nursing and suck swallow ratio. Suggested mother stimulate while feeding to increase stimulation for milk supply, for increased intake and to assist with maintaining deep latch. Infant would slip to shallow latch causing tenderness. Demonstrated how to adjust latch more deeply while feeding if needed. Mother reports she can feel the difference in latch with no tenderness. Nipple care reviewed of lanolin after feedings, warm compresses as needed, gel pads provided and reviewed care and cleaning. Instructed mother to call out for RN assistance if she is unable to latch for feeding or she has discomfort with nursing. Instructed feeding should be initiated three hours from start of last feeding or if feeding cues are noted before. Mother voiced understanding of information shared.
[2021-03-12 14:00] VITALS: BP 142/93; PULSE 111; RESP 18; TEMP 35.9; O2SAT 99
[2021-03-12] MEDS: DIBUCAINE 1% OINTMENT 30 GM TUBE 1 APPLIC TOPICAL (15:59)
[2021-03-12] MEDS: RHO(D) IMMUNE GLOBULIN 300 MCG/2 ML SYRINGE IM (17:25)
[2021-03-13 09:45] VITALS: BP 129/82; PULSE 88; RESP 20; TEMP 36.6; O2SAT 98
== END 2021-03-12 18:45 | disposition home or self-care (01) | DRG 560 ==
LOC: ANHLDR 05:37 → ANHOB2 18:37
PROVIDERS: Advanced Practice Midwife; Admitting Provider Obstetrics & Gynecology; PCP Family Medicine; Visit Provider Obstetrics & Gynecology
DX: O13.4 Gestational [pregnancy-induced] hypertension without significant proteinuria, complicating childbirth (principal); O99.334 Smoking (tobacco) complicating childbirth; F17.210 Nicotine dependence, cigarettes, uncomplicated; Z3A.37 37 weeks gestation of pregnancy; Z37.0 Single live birth; Z23 Encounter for immunization
CPT/HCPCS: 36415; 80053; 84550; 85014; 85018; 85025; 85461; 86592; 86850; 86900; 86901; 88307; 90384; 90471; 90653; 90715; A9270; G0008; J2590; J2790; J2795; J7120

== ENCOUNTER 2021-05-08 18:05 | Emergency (ER) | payer OTHER, SELFPAY ==
[2021-05-08 18:25] VITALS: BP 143/85; PULSE 118; RESP 20; TEMP 36.4; O2SAT 97
[2021-05-08] MEDS: SODIUM CHLORIDE 0.9% IV 1,000 ML 999 ML IV CONT (18:35)
[2021-05-08] MEDS: PANTOPRAZOLE SODIUM IV 40 MG VIAL IV PUSH (18:48)
[2021-05-08] MEDS: ONDANSETRON INJ 4 MG/2 ML VIAL IV PUSH (18:48)
[2021-05-08 19:03] LABS: Basophils Absolute Auto 0.02 K/mm3 (0.00-0.10); Basophils Percent Auto 0.2 % (0.0-1.0); Eosinophils Absolute Auto 0.08 K/mm3 (0.02-0.50); Eosinophils Percent Auto 0.8 % (1.0-6.0); Hematocrit 45.2 % (35.0-49.0); Hemoglobin 14.6 g/dL (12.0-15.0); Immature Granulocyte Absolute 0.03 K/mm3 (0.00-0.00); Immature Granulocyte Percent A 0.3 % (0.0-0.0); Lymphocytes Percent Auto 8.9 % (18.0-42.0); Mean Corpuscular HGB Conc 32.3 g/dL (32.0-36.0); Mean Corpuscular Hemoglobin 29.9 pg (27.0-31.0); Mean Corpuscular Volume 92.6 fL (78.0-102.0); Mean Platelet Volume 11.1 fl (9.2-11.8); Monocytes Absolute Auto 0.41 K/mm3 (0.10-0.90); Neutrophils Absolute Auto 8.7 K/mm3 (1.7-7.2); Neutrophils Percent Auto 85.8 % (50.0-70.0); Platelet Count Result 248 K/mm3 (150-420); Red Blood Count 4.88 M/mm3 (4.20-5.40); Red Cell Distribution Width 12.6 % (11.6-14.4); White Blood Count 10.1 K/mm3 (4.8-10.8)
[2021-05-08 19:11] LABS: Alanine Aminotransferase 83 U/L (14-59); Albumin Level 3.5 g/dL (3.4-5.0); Alkaline Phosphatase 150 U/L (46-116); Anion Gap 9 mmol/L (8-16); Aspartate Amino Transferase 47 U/L (15-37); Bilirubin,Total 0.3 mg/dL (0.00-1.00); Blood Urea Nitrogen 12 mg/dL (7-18); Calcium 8.3 mg/dL (8.5-10.1); Carbon Dioxide 28 mmol/L (21-32); Chloride 105 mmol/L (98-108); Estimated CRCL calculation 98 ml/min; Estimated Glomerular Filt Rate > 60; Glucose 105 mg/dL (70-99); Lipase 47 U/L (73-393); Osmolality Calculated 293 mOsm/kg (285-295); Potassium 3.9 mmol/L (3.5-5.1); Sodium 142 mmol/L (136-145); Total Protein 7.6 g/dL (6.4-8.2)
[2021-05-08 19:14] LABS: SPREG INTERNAL CONTROL Positive; Serum Qual hCG Negative
[2021-05-08 19:32] LABS: SARS-CoV-2 RNA PCR Negative (Negative)
[2021-05-08 19:53] LABS: Add Urine Microscopic? YES; Appearance Urine Clear (Clear); Bilirubin Urine Negative (Negative); Blood Urine Negative (Negative); Color Urine Yellow (Yellow); Glucose Urine UA Negative (Negative); Ketones Urine Negative (Negative); Leukocyte Esterase Ur Trace LEU/UL (Negative); Nitrate Urine Negative (Negative); Protein Urine Negative (Negative); Specific Grav Ur 1.025 (1.010-1.020); Urobilinogen Urine 0.2 mg/dL (0.2-1.0)
[2021-05-08 20:01] LABS: Bacteria Urine 1+ /hpf; Mucus Urine Heavy /lpf; RBC Urine None seen /hpf (0-2); Squamous Epithelial Cell Urine Many /hpf (Few); WBC Urine 0-3 /hpf (0-3)
--- NOTE | 2021-05-08 20:06 | ED.NAVMDI ---
HPI - Nausea/Vomiting/Diarrhea General Chief complaint: Nausea/Vomiting/Diarrhea Stated complaint: chills, vomiting, cough, sore throat Time Seen by Provider: 05/08/21 18:08 Source: patient and RN notes reviewed Mode of arrival: ambulatory Limitations: no limitations History of Present Illness MD elicited complaint: nausea, vomiting and diarrhea Onset (ago): day(s) (2) Description of vomiting: watery Description of diarrhea: watery Associated nausea: Yes Associated abdominal pain: No Location of pain: periumbilical Pain consistency: constant Severity: mild Pain scale (0-10): 4 Quality: cramping, aching and dull Exacerbating factors: none Relieving factors: none Associated symptoms: denies other symptoms Treatment prior to arrival: none Related Data Home Medications Medication Instructions Recorded Confirmed No Home Medications 05/26/21 05/26/21 Allergies Allergy/AdvReac Type Severity Reaction Status Date / Time No Known Allergies Allergy Unverified 05/26/21 15:15 Review of Systems Review of Systems: All systems reviewed & are unremarkable except as noted in HPI and below PMFSH Past Medical History Medical History Back pain Morbid obesity with BMI of 40.0-44.9, adult PIH ( induced hypertension) Family History Family History Daughter Trisomy 21 Hypothyroidism Sibling Epilepsy Mother Hypothyroidism Social History Social History Smoking packs per day: 1 Smoking cigarettes per day: 20.0 Years smoked: 5 Smoking pack-years: 5.00 Smoking status: Current every day smoker Tobacco type: cigarettes Second hand tobacco smoke exposure: Yes Alcohol intake: current Substance use: never Additional living arrangements comments: HUSB & 2 CHILDREN Gender identity (if verbalized by the patient): Female Spiritual care concerns: No Exam Const: General: no acute distress and alert Nutritional Appearance: obese Orientation/consciousness: patient oriented x3 HENMT: Head: normal to inspection Ears: external ears normal and TM's normal bilaterally General nose exam: Normal external nose present and Normal nares present Face and sinus: normal facial exam Mouth: Yes lip normal and Yes moist mucous membranes Teeth and gingiva: dentition normal Eyes: Pupils: Equal, round and reactive pupils present EOM: EOMs intact bilaterally Neck: Neck: normal visual inspection and no lymphadenopathy Chest: Chest palpation & inspection: normal inspection of the chest Resp: Effort & Inspection: normal respiratory effort Auscultation: clear to auscultation bilaterally Cardio: Rate: regular rate Rhythm: regular rhythm GI: GI Palp: Yes Soft to palpation and Yes Tenderness to palpation present (GI) Auscultation: normal bowel sounds : General: Yes bladder normal to palpation and Yes no CVA tenderness Back/Spine/Pelvis: Back: no CVA tenderness Skin: General skin exam: normal color Rashes: no rashes Neuro: General: patient oriented x3, moves all extremities, no meningeal signs, no focal motor deficits and CN's II-XI intact bilaterally Extrem: General: normal to inspection Psych: Appearance: grossly normal Mental Status: mental status grossly normal Affect: normal affect Thought content: Yes Normal thought content present Course Course Emergency Course: Stable pt with no acute GI loss in the ED. Reevaluation(s) Reevaluation #1: FLIP. Date: 05/08/21 Time: 19:05 Vital Signs Vital signs: Vital Signs Temperature 36.4 C 05/08/21 18:25 Pulse Rate 118 H 05/08/21 18:25 Respiratory Rate 20 05/08/21 18:25 Blood Pressure 143/85 H 05/08/21 18:25 Pulse Oximetry 97 05/08/21 18:25 Temperature 36.6 C 05/08/21 20:46 Pulse Rate 94 05/08/21 20:46 Respiratory Rate 20 05/08/21 20:46 Blood Pressur
[2021-05-08 20:46] VITALS: BP 120/74; PULSE 94; RESP 20; TEMP 36.6; O2SAT 99
--- NOTE | 2021-05-08 20:49 | PC.NURSE ---
0 further episodes N&V Diarrhea. Rocephin infused 0 S or S of adverse affect. IV Rt A/C d/c ed intact.
== END 2021-05-08 20:50 | disposition home or self-care (01) ==
PROVIDERS: Emergency Provider Emergency Medicine; PCP Family Medicine
DX: K52.9 Noninfective gastroenteritis and colitis, unspecified (principal); N39.0 Urinary tract infection, site not specified; Z20.822 Contact with and (suspected) exposure to COVID-19
CPT/HCPCS: 36415; 80053; 81001; 83690; 84703; 85025; 96361; 96365; 96375; 99283; 99284; C9113; C9803; J0696; J2405; J7030; U0003; U0005

== ENCOUNTER → 2021-05-29 00:07 | Outpatient (CLI) | payer OTHER, SELFPAY ==
[2021-05-29 20:23] LABS: SARS-CoV-2 RNA PCR Negative
== END ==
PROVIDERS: PCP Family Medicine; Visit Provider Obstetrics & Gynecology
DX: Z01.812 Encounter for preprocedural laboratory examination (principal); Z20.822 Contact with and (suspected) exposure to COVID-19
CPT/HCPCS: C9803; U0003; U0005

== ENCOUNTER 2021-06-01 00:47 | Day surgery (SDC) | payer OTHER, SELFPAY ==
[2021-05-26 15:17] VITALS: BMI 40.0
--- NOTE | 2021-05-26 15:30 | PC.NURSE ---
Report to the Outpatient Waiting Room, entrance under the green pavilion located off [facility], at time __9:30AM on date __06/01/21 . OR Time: ___11:30AM . - You and your visitor will be asked a series of questions to screen for COVID 19 for your protection. - A mask is required within the hospital. - Only one visitor is allowed at this time. Patient visitors will be guided where to wait when not with patient. Preoperative COVID Testing Requirements: No COVID Test needed if: (proof is required; if not received patient will have Rapid Test prior to entry) - Patient has received COVID Vaccine at least 14 days prior to procedure date or - Patient has positive COVID test result within last 90 days of surgery date. COVID Test needed if above criteria is not met COVID TESTING 05/29/21 @ 9:40AM If not COVID vaccinated a COVID test must be conducted within 72 hours of surgery and patient is asked to isolate self from time of testing until procedure. You will go to the [facility] for your COVID testing. The [employer] [facility] site is located at the corner of [address] [facility]. You will only be called if COVID results are positive and your surgeon may reschedule your elective surgery date. Patients may have clear liquids (water, carbonated beverages, clear teas, apple juice) until 3 hours prior to surgery with a maximum of 20 ounces. - No food from midnight until time of surgery - Infants may have breast milk until 4 hours before surgery, formula 6 hours prior to surgery. - Children will be allowed to drink immediately following surgery. If applicable, please bring a bottle or sippy cup to assist with drinking. Juice, water, soda, and popsicles are readily available. For infants on formula, please bring formula the day of surgery. Pacifiers are allowed. Take the following medications with a SIP of water the morning of surgery: NONE Medications to discontinue per physician NONE Date to take last dose Please no make-up, nail thai, hairspray, perfume, deodorant, or body powder the day of surgery. No jewelry (including any body piercings) or valuables the day of surgery, leave them at home. Please take a shower or bath the night before, or the morning of, surgery with an antibacterial soap. Wear comfortable, loose fitting clothing. Children are encouraged to wear pajamas. - Jewelry must be removed prior to entering the operating room. Rings and piercings that are not removed may be cut off. - The hospital will not accept responsibility for valuables. - Please leave all valuables, including medications, at home the day of surgery. If you are going home after surgery, a licensed stage driver must drive you home. - NO public transportation without another adult. - We recommend that an adult stay with you for 24 hours following discharge. - We also recommend that you do not drive, make important decision, drink alcoholic beverages, or take any drugs that were not prescribed by your health care provider for at least 24 hours after your discharge time. For Pediatric surgeries, we recommend two adults accompany the child home (only one inside the building at this time). Follow any additional instructions given to you from your surgeon. Telephone instructions given to _PATIENT and asked if any additional questions and then verbalized understanding. Patient advised to call surgeon office or pre surgery nurse liaison [phone] if any additional questions.
--- NOTE | 2021-05-31 12:45 | WPDANESEPPF ---
Anes - Initial Pre Proc Eval Procedure: Operation Date: 06/01/21 11:30 Proposed Procedures p Laparoscopic Bilateral Tubal Sterilization with Fulguration of Oviducts - Alla Verdugo MD Date/Time: 05/31/21 12:45 Surgeon: Alla Verdugo MD Pre Op Diagnosis: Female Sterilization Patient Data Age: 26 Gender: F Height: 1.75 m Weight: 123 kg Allergies Allergy/AdvReac Type Severity Reaction Status Date / Time No Known Allergies Allergy Verified 06/01/21 09:58 Home Medications Medication Instructions Recorded Confirmed Type No Home Medications 05/26/21 05/26/21 History Patient hx anesthesia problems: none Family hx anesthesia problems: none Results Review: All pre-operative results and documents have been reviewed as part of the pre-operative evaluation. [facility] Past Medical History Medical History Back pain Morbid obesity with BMI of 40.0-44.9, adult PIH ( induced hypertension) Smoker Family History Family History Daughter Trisomy 21 Hypothyroidism Sibling Epilepsy Mother Hypothyroidism Social History Social History Smoking packs per day: 1 Smoking cigarettes per day: 20.0 Years smoked: 5 Smoking pack-years: 5.00 Smoking status: Current every day smoker Tobacco type: cigarettes Second hand tobacco smoke exposure: Yes Alcohol intake: current Substance use: never Living arrangements: with family Additional living arrangements comments: HUSB & 2 CHILDREN Gender identity (if verbalized by the patient): Female Spiritual care concerns: No Anes - Eval Final PreProcedure Day of Procedure 05/31/21 12:45 Patient weight: obese Heart: regular rate and rhythm Lungs: clear to auscultation and normal air movement Airway: Mallampati scale class II Neurological: alert and oriented Last oral intake: >/= 8 hours ASA classification: III Emergent: no Anesthetic plan: proceed Anesthesia type and monitoring: general ETT Results Review: All pre-operative results and documents have been reviewed as part of the pre-operative evaluation. Informed Consent: The patient's anesthetic plan and its attendant risks and benefits were discussed with the patient/family/POA. Questions were solicited and answers provided to the satisfaction of the patient/family/POA.
[2021-06-01] VITALS (8 sets, daily range): BP systolic 108–124; BP diastolic 60–99; PULSE 77–89; RESP 14–20; TEMP 36.4–36.6; O2SAT 99–100; BMI 40.8
[2021-06-01] MEDS: LACTATED RINGERS 1,000 ML 30 ML IV CONT (10:09)
[2021-06-01] MEDS: ACETAMINOPHEN 500 MG TABLET 1000 MG PO (10:10)
[2021-06-01] MEDS: KETOROLAC 15 MG/ML VIAL (*BKC) IV PUSH (10:10)
--- NOTE | 2021-06-01 12:00 | WPDHPUPDATE1 ---
History and Physical Update Update Date/Time: 06/01/21 12:00 History and Physical has been reviewed, including an updated exam of the patient. There are NO changes in the patient's condition. Risks, benefits, and alternatives have been discussed and questions answered. Patient agrees to proceed with procedure.
[2021-06-01] MEDS: fentaNYL CITRATE INJ (*CRX) 100 MCG/2 ML VIAL 25 MCG IV PUSH ×4 (13:36→14:01)
--- NOTE | 2021-06-01 13:41 | P.OP_ITS ---
Procedure Note - Detailed Date of Procedure 06/01/21 Pre-op Diagnosis Female Sterilization Post-op Diagnosis same Procedure Performed Laparoscopic bilateral tubal ligation Surgeon Alla Verdugo MD Safety Glass Installer none Anesthesia general Indications Unwanted fertility Findings Normal pelvic anatomy Description of Procedure The patient was taken the operating room. She has prepped draped in the dorsal lithotomy position after induction of general anesthesia. A 5 mm left upper quadrant incision was made with a scalpel on the abdominal skin. A 5 mm trocar was inserted intra-abdominal cavity. A pneumoperitoneum was achieved. This was done under direct visualization of the scope. An infraumbilical trocar was placed identical fashion. The fallopian tubes were grasped with bipolar caute ry. They were completely cauterized. A 1.5 cm area of each fallopian tube was cauterized/desiccated. It was done bilaterally identical fashion. The pneumoperitoneum was reduced. The trocars removed. The skin was closed with subcuticular 4 Monocryl cover Dermabond. The patient tolerated the procedure well. She was taken to cover room stable condition. Sponge lap and needle counts were correct x2. Estimated Blood Loss -5.0 Drains No Packing No Pathology none sent Complications No immediate complications Condition stable Disposition PACU
[2021-06-01] MEDS: oxyCODONE HCL (*CRX) 5 MG TAB IR PO (14:53)
== END 2021-06-01 15:30 | disposition home or self-care (01) ==
PROVIDERS: PCP Family Medicine; Visit Provider Obstetrics & Gynecology
PROC: (CPT 58671; principal; 2021-06-01 11:30)
DX: Z30.2 Encounter for sterilization (principal); F17.210 Nicotine dependence, cigarettes, uncomplicated; E66.01 Morbid (severe) obesity due to excess calories; Z68.41 Body mass index [BMI] 40.0-44.9, adult
CPT/HCPCS: 58670; A9270; C9803; J1100; J1885; J2250; J2405; J2704; J2710; J3010; J7030; J7120; U0003; U0005

== ENCOUNTER 2021-10-20 14:06 | Emergency (ER) | payer OTHER, SELFPAY ==
--- NOTE | ~2021-10-20 | XR_ITS ---
Z EXAM: XR foot LT min 3V DATE: 10/20/2021 15:27 HISTORY: left 5th toe pain after injury today . COMPARISON: None available. FINDINGS: Normal mineralization. No fracture or dislocation. No lytic or blastic lesion. Joint space s are maintained. No erosion or periosteal change. Soft tissues within normal limits. IMPRESSION: No acute osseous finding in the left foot. Reviewed, dictated and finalized at location K.
[2021-10-20 14:12] VITALS: BP 112/98; PULSE 98; RESP 16; TEMP 36.2; O2SAT 99
--- NOTE | 2021-10-20 15:09 | PC.NURSE ---
PT IS AWAITING XRAY AT THIS TIME. FRIEND AT BEDSIDE. WILL CONTINUE TO MONITOR.
[2021-10-20] MEDS: ACETAMINOPHEN 325 MG TABLET 650 MG PO (15:24)
--- NOTE | 2021-10-20 15:51 | PC.NURSE ---
left 4th and 5th digits are bibiana taped. pt tolerated well
--- NOTE | 2021-10-20 16:02 | ED.LOWEXIN ---
HPI - Extremity Injury (Lower) General Chief Complaint: Extremity Injury, Lower Stated Complaint: left foot pain Time Seen by Provider: 10/20/21 14:10 Source: patient and RN notes reviewed Mode of arrival: ambulatory Limitations: no limitations History of Present Illness HPI Narrative: left 5th toe pain MD complaint: foot injury Injury: Left: foot Type of Injury: blunt Place: home Severity: mild Severity scale (1-10): 3 Relieving factors: immobilization Exacerbating factors: weight bearing and movement Context: direct blow Other symptoms: none Related Data Home Medications Medication Instructions Recorded Confirmed No Home Medications 10/20/21 10/20/21 Allergies Allergy/AdvReac Type Severity Reaction Status Date / Time No Known Allergies Allergy Verified 10/20/21 14:21 Review of Systems Review of Systems: All systems reviewed & are unremarkable except as noted in HPI and below Constitutional: Constitutional: Reports no additional constitutional complaints Eyes: Eyes: Reports no additional eye complaints ENT: Reports system reviewed and no additional complaints, except as documented Cardiovascular: Cardiovascular: Reports no additional cardiovascular complaints Respiratory: Respiratory: Reports no additional respiratory complaints Gastrointestinal: Gastrointestinal: Reports no additional gastrointestinal complaints Genitourinary: Genitourinary: Reports no additional female genitourinary complaints Musculoskeletal: Musculoskeletal: Reports arthralgias Integumentary/Breasts: Skin/Breast: Reports system reviewed and no additional complaints, except as docu Neurologic: Reports system reviewed and no additional complaints, except as documented Psychiatric: Psychiatric: Reports no additional psychiatric complaints Endocrine: Endocrine: Reports no additional endocrine complaints Hematologic/Lymphatic: Hematologic/Lymphatic: Reports no additional hematologic/lymphatic complaints Allergic/Immunologic: Allergic/Immunologic: Reports no additional allergic/immunologic complaints [facility] Past Medical History Medical History Back pain Contusion of fifth toe, left Morbid obesity with BMI of 40.0-44.9, adult PIH ( induced hypertension) Smoker Family History Family History Daughter Trisomy 21 Hypothyroidism Sibling Epilepsy Mother Hypothyroidism Social History Social History Smoking packs per day: 1 Smoking cigarettes per day: 20.0 Years smoked: 5 Smoking pack-years: 5.00 Smoking status: Current every day smoker Tobacco type: cigarettes Second hand tobacco smoke exposure: Yes Alcohol intake: current Substance use: never Additional living arrangements comments: HUSB & 2 CHILDREN Gender identity (if verbalized by the patient): Female Sexual Orientation (if Verbalized by the Patient): Straight or Heterosexual Spiritual care concerns: No Exam Const: General: healthy appearing and no acute distress Nutritional Appearance: well nourished Orientation/consciousness: patient oriented x3 Limitations: no limitations HENMT: Head: normal to inspection Ears: external ears normal, TM's normal bilaterally and EAC's normal General nose exam: Normal external nose present and Normal nares present Face and sinus: normal facial exam and sinuses nontender Mouth: Yes Normal oral and palatal mucosa present and Yes moist mucous membranes Teeth and gingiva: dentition normal Throat: posterior oropharynx normal Eyes: Conjunctivae: conjunctivae normal Pupils: Equal, round and reactive pupils present EOM: EOMs intact bilaterally Neck: Neck: normal visual inspection, no lymphadenopathy and no meningeal signs Chest: Chest palpation & inspection: normal inspection of the chest Resp: Effort & Inspection: normal respiratory effort Auscultation: clear to auscultat
[2021-10-20 16:35] VITALS: BP 114/84; PULSE 92; RESP 16; TEMP 36.7; O2SAT 99
== END 2021-10-20 16:35 | disposition home or self-care (01) ==
PROVIDERS: Emergency Provider Emergency Medicine; PCP Physician Assistant
DX: S90.122A Contusion of left lesser toe(s) without damage to nail, initial encounter (principal)
CPT/HCPCS: 73630; 99283; A9270

== ENCOUNTER 2022-02-01 13:03 | Emergency (ER) | payer OTHER, SELFPAY ==
[2022-02-01 13:04] VITALS: BP 129/82; PULSE 94; RESP 18; TEMP 36.7; O2SAT 98
[2022-02-01] MEDS: methylPREDNISolone SOD SUCC 125 MG VIAL IM (13:23)
--- NOTE | 2022-02-01 13:57 | ED.ALLEREA ---
HPI - Allergic Reaction General Chief complaint: Allergic Reaction Stated complaint: ALLERGIC REACTION, BEE STING Source: patient and RN notes reviewed Mode of arrival: ambulatory Limitations: no limitations History of Present Illness HPI narrative: Patient stung by a bee last evening. Woke up this morning and her right eye had swollen shut. She took 2 Benadryl and laid down to take a nap and when she woke up it was still swollen. She came here for further treatment. complaint: allergic reaction Onset (ago): day(s) (1) Exposure: insect bite (bee) Symptoms: facial swelling ( Around right eye) Severity: moderate Treatment prior to arrival: benadryl Previous Allergic Reaction History: none Related Data Home Medications Medication Instructions Recorded Confirmed No Home Medications 10/20/21 02/01/22 Allergies Allergy/AdvReac Type Severity Reaction Status Date / Time No Known Allergies Allergy Verified 02/01/22 13:13 Review of Systems Review of Systems: All systems reviewed & are unremarkable except as noted in HPI and below PMFSH Past Medical History Medical History Back pain Contusion of fifth toe, left Morbid obesity with BMI of 40.0-44.9, adult PIH ( induced hypertension) Smoker Surgical History Surgical History (Updated 02/01/22 @ 14:10 by Nehemias Colon MD) History of tonsillectomy and adenoidectomy Family History Family History Daughter Trisomy 21 Hypothyroidism Sibling Epilepsy Mother Hypothyroidism Social History Social History (Updated 02/01/22 @ 14:20 by Nehemias Colon MD) Smoking packs per day: 0.5 Smoking cigarettes per day: 10.0 Years smoked: 5 Smoking pack-years: 2.50 Smoking status: Current every day smoker Tobacco type: cigarettes Second hand tobacco smoke exposure: Yes Alcohol intake: current Substance use: never Additional living arrangements comments: HUSB & 2 CHILDREN Gender identity (if verbalized by the patient): Female Sexual Orientation (if Verbalized by the Patient): Straight or Heterosexual Spiritual care concerns: No Exam Const: General: healthy appearing, no acute distress and alert Nutritional Appearance: well nourished Orientation/consciousness: patient oriented x3 Limitations: no limitations Other: Female tech in room during examination. HENMT: Head: normal to inspection Ears: external ears normal Face and sinus: normal facial exam ( Except as noted in the eye exam) Eyes: Periorbital: periorbital findings abnormal right periorbital swelling; no tenderness and no erythema Conjunctivae: conjunctivae normal Pupils: Equal, round and reactive pupils present EOM: EOMs intact bilaterally Neck: Neck: normal visual inspection and no lymphadenopathy Resp: Effort & Inspection: normal respiratory effort Auscultation: clear to auscultation bilaterally Cardio: Rate: regular rate Rhythm: regular rhythm GI: GI Palp: Yes Soft to palpation and No Tenderness to palpation present (GI) Auscultation: normal bowel sounds Back/Spine/Pelvis: Cervical Spine: cervical ROM normal Thoracic/Lumbar Spine: thoraco-lumbar ROM normal Skin: General skin exam: normal color Rashes: no rashes Neuro: General: patient oriented x3, moves all extremities, no focal motor deficits and CN's II-XI intact bilaterally Speech: normal speech Gait exam (Neuro): Normal gait present Extrem: General: normal to inspection and no clubbing, cyanosis or edema Psych: Mental Status: mental status grossly normal Affect: normal affect Attitude: cooperative Course Vital Signs Vital signs: Vital Signs Temperature 36.7 C 02/01/22 13:04 Pulse Rate 94 02/01/22 13:04 Respiratory Rate 18 02/01/22 13:04 Blood Pressure 129/82 02/01/22 13:04 Pulse Oximetry 98 02/01/22 13:04 Oxygen Delivery Room Air 02/01/22 13:04 Temperature 36.7 C 02/01/22 13:04 Pulse Rate 94
[2022-02-01 14:15] VITALS: BP 122/70; PULSE 88; RESP 16; O2SAT 99
--- NOTE | 2022-02-01 14:24 | PC.NURSE ---
1400 SWELLING IS GREATLY IMPROVED, PT IS ABLE TO OPEN AND OWN ITS OWN. SWELLING REMAINS, HOWEVER GREATLY IMPROVED.
== END 2022-02-01 14:15 | disposition home or self-care (01) ==
PROVIDERS: Emergency Provider Emergency Medicine; PCP Physician Assistant
DX: T63.441A Toxic effect of venom of bees, accidental (unintentional), initial encounter (principal)
CPT/HCPCS: 96372; 99283; J2930

== ENCOUNTER 2022-04-04 22:12 | Emergency (ER) | payer OTHER, SELFPAY ==
--- NOTE | ~2022-04-04 | CT_ITS ---
EXAMINATION: CT abdomen pelvis wo con DATE: 04/05/2022 00:54 INDICATION: Vomiting. Diarrhea. TECHNIQUE: Computed tomography (CT) of the abdomen and pelvis was performed without intravenous contr ast. Automated exposure control and iterative reconstruction technique were employed. The dose-length product was 1505.48 mGy-cm. COMPARISON: CT abdomen and pelvis 04/30/2018 FINDINGS: The visualized portions of the lung bases are clear without pneumonia or pleural effusion. The heart size is normal. No pericardial effusion. There is diffuse hepatic steatosis. The gallbladde r, spleen, pancreas, adrenal glands, and kidneys are normal. There is no urolithiasis. There are no d ilated loops of bowel. The appendix is normal. There are no pathologically enlarged lymph nodes. Ther e is no free intraperitoneal fluid. There is mild lumbar spondylosis. IMPRESSION: 1. Diffuse hepatic steatosis. Reviewed, dictated and finalized at location A. DUE FURNACE OPERATOR
--- NOTE | ~2022-04-04 | XR_ITS ---
EXAMINATION: XR chest 1V portable DATE: 04/05/2022 00:54 INDICATION: Chest pain. Shortness of breath. Cough. TECHNIQUE: A single frontal view of the chest was obtained. COMPARISON: Chest 2 views 08/13/2020, CT abdomen and pelvis 04/05/2022 FINDINGS: There are airspace opacities in left lower lung zone. No pleural effusion or pneumothorax. The heart size is normal. IMPRESSION: 1. Airspace opacities in left lower lung zone, consistent with atelectasis versus pneumonia. Reviewed, dictated and finalized at location A. ING SERVICE TECHNICIAN IMPRESSION: 1. Airspace opacities in left lower lung zone, consistent with atelectasis vers us pneumonia.
[2022-04-04 22:25] VITALS: BP 120/80; PULSE 115; RESP 20; TEMP 37.4; O2SAT 95
--- NOTE | 2022-04-04 22:39 | ECG_ITS ---
Measurements Intervals [place] Rate: 106 P: [place]: 0 QRS: 14 QRSD: 91 T: 45 QT: 349 QTc: 465 Interpretive Statements SINUS OR ECTOPIC ATRIAL TACHYCARDIA INCOMPLETE RIGHT BUNDLE BRANCH BLOCK DELAYED PRECORDIAL R/S TRANSITION BASELINE ARTIFACT- I, III, AVR, AVL, AVF, V1-V6 ABNORMAL ECG COMPARED TO ECG 08/13/2020 20:45:43 NO SIGNIFICANT CHANGES Electronically Signed On 04-04-2022 23:27:54 HOUSEFELLOW by Roman Chavez D.O.
[2022-04-04] MEDS: SODIUM CHLORIDE 0.9% IV 1,000 ML 999 ML IV CONT (23:53)
[2022-04-04 23:59] LABS: Basophils Absolute Auto 0.01 K/mm3 (0.00-0.10); Basophils Percent Auto 0.2 % (0.0-1.0); Hematocrit 40.3 % (35.0-49.0); Hemoglobin 13.2 g/dL (12.0-15.0); Lymphocytes Absolute Auto 1.15 K/mm3 (1.10-4.50); Lymphocytes Percent Auto 22.5 % (18.0-42.0); Mean Corpuscular HGB Conc 32.8 g/dL (32.0-36.0); Mean Corpuscular Hemoglobin 30.1 pg (27.0-31.0); Mean Corpuscular Volume 91.8 fL (78.0-102.0); Mean Platelet Volume 11.3 fl (9.2-11.8); Monocytes Absolute Auto 0.52 K/mm3 (0.10-0.90); Monocytes Percent Auto 10.2 % (2.0-11.0); Neutrophils Absolute Auto 3.3 K/mm3 (1.7-7.2); Neutrophils Percent Auto 65.1 % (50.0-70.0); Platelet Count Result 177 K/mm3 (150-420); Red Blood Count 4.39 M/mm3 (4.20-5.40); Red Cell Distribution Width 13.2 % (11.6-14.4); White Blood Count 5.1 K/mm3 (4.8-10.8)
[2022-04-05 00:17] LABS: Alanine Aminotransferase 29 U/L (14-59); Albumin Level 3.2 g/dL (3.4-5.0); Alkaline Phosphatase 81 U/L (46-116); Anion Gap 8 mmol/L (8-16); Aspartate Amino Transferase 18 U/L (15-37); Bilirubin,Total 0.2 mg/dL (0.00-1.00); Blood Urea Nitrogen 11 mg/dL (7-18); Calcium 7.8 mg/dL (8.5-10.1); Carbon Dioxide 28 mmol/L (21-32); Chloride 104 mmol/L (98-108); Estimated Glomerular Filt Rate > 60; Glucose 93 mg/dL (70-99); Lipase 45 U/L (73-393); Osmolality Calculated 289 mOsm/kg (285-295); Potassium 3.4 mmol/L (3.5-5.1); Sodium 140 mmol/L (136-145); Total Protein 7.1 g/dL (6.4-8.2); Troponin I 4.7 ng/L (0.00-60.4)
[2022-04-05 00:24] LABS: SPREG INTERNAL CONTROL Positive; Serum Qual hCG Negative
[2022-04-05 00:52] VITALS: BP 128/71; PULSE 109; RESP 20; TEMP 37.3; O2SAT 95
[2022-04-05 01:15] VITALS: BP 120/67; PULSE 102; RESP 20; O2SAT 94
[2022-04-05 01:35] LABS: Add Urine Microscopic? NO; Appearance Urine Clear (Clear); Bilirubin Urine Negative (Negative); Blood Urine Negative (Negative); Color Urine Yellow (Yellow); Glucose Urine UA Negative (Negative); Ketones Urine Negative (Negative); Leukocyte Esterase Ur Negative (Negative); Nitrate Urine Negative (Negative); Protein Urine Negative (Negative); Specific Grav Ur >= 1.030 (1.010-1.020); Urobilinogen Urine 0.2 mg/dL (0.2-1.0); pH Urine 5.5 (5.0-8.0)
[2022-04-05 01:45] VITALS: BP 124/72; PULSE 98; RESP 20; O2SAT 92
[2022-04-05 02:00] VITALS: BP 118/75; PULSE 98; RESP 20; O2SAT 94
[2022-04-05] MEDS: POTASSIUM CHLORIDE 20 MEQ TABLET PO (02:02)
[2022-04-05] MEDS: CALCIUM CARBONATE (TUMS) 500 MG (200 MG ELEMENTAL) 1000 MG PO (02:03)
--- NOTE | 2022-04-05 02:19 | ED.CHESTPAIN ---
HPI - Chest Pain General Chief Complaint: Chest Pain Stated Complaint: chest pains, trouble breathing Time Seen by Provider: 04/04/22 22:15 Source: patient and RN notes reviewed Mode of arrival: ambulatory Limitations: no limitations History of Present Illness complaint: chest pain Onset (ago): day(s) (2) Prior episodes: No Onset: during exertion Pain location: lateral Pain scale (0-10): 6 Quality: dull Relieving factors: nothing Exacerbating factors: nothing Related Data Allergies Allergy/AdvReac Type Severity Reaction Status Date / Time No Known Allergies Allergy Verified 04/04/22 22:38 Review of Systems Review of Systems: All systems reviewed & are unremarkable except as noted in HPI and below Constitutional: Constitutional: Reports no additional constitutional complaints Eyes: Eyes: Reports no additional eye complaints ENT: Reports system reviewed and no additional complaints, except as documented Cardiovascular: Cardiovascular: Reports no additional cardiovascular complaints Respiratory: Respiratory: Reports no additional respiratory complaints Gastrointestinal: Gastrointestinal: Reports no additional gastrointestinal complaints Genitourinary: Genitourinary: Reports no additional female genitourinary complaints Musculoskeletal: Musculoskeletal: Reports no additional musculoskeletal complaints Integumentary/Breasts: Skin/Breast: Reports system reviewed and no additional complaints, except as docu Neurologic: Reports system reviewed and no additional complaints, except as documented Psychiatric: Psychiatric: Reports no additional psychiatric complaints Endocrine: Endocrine: Reports no additional endocrine complaints Hematologic/Lymphatic: Hematologic/Lymphatic: Reports no additional hematologic/lymphatic complaints Allergic/Immunologic: Allergic/Immunologic: Reports no additional allergic/immunologic complaints PMFSH Past Medical History Medical History Back pain Contusion of fifth toe, left Morbid obesity with BMI of 40.0-44.9, adult PIH ( induced hypertension) Smoker Surgical History Surgical History History of tonsillectomy and adenoidectomy Family History Family History Daughter Trisomy 21 Hypothyroidism Sibling Epilepsy Mother Hypothyroidism Social History Social History Smoking packs per day: 0.5 Smoking cigarettes per day: 10.0 Years smoked: 5 Smoking pack-years: 2.50 Smoking status: Current every day smoker Tobacco type: cigarettes Second hand tobacco smoke exposure: Yes Alcohol intake: current Substance use: never Additional living arrangements comments: HUSB & 2 CHILDREN Gender identity (if verbalized by the patient): Female Sexual Orientation (if Verbalized by the Patient): Straight or Heterosexual Spiritual care concerns: No Exam Const: General: no acute distress and well nourished Nutritional Appearance: well nourished Orientation/consciousness: patient oriented x3 Limitations: no limitations HENMT: Head: normal to inspection Ears: external ears normal, TM's normal bilaterally and EAC's normal Face/Nose/Sinus: Normal external nose present, Normal nares present, normal facial exam and sinuses nontender Face and sinus: normal facial exam and sinuses nontender Mouth: Yes Normal oral and palatal mucosa present and Yes moist mucous membranes Teeth and gingiva: dentition normal Throat: posterior oropharynx normal Eyes: Conjunctivae: conjunctivae normal Pupils: Equal, round and reactive pupils present EOM: EOMs intact bilaterally Neck: Neck: normal visual inspection, no lymphadenopathy and no meningeal signs Chest: Chest palpation & inspection: normal inspection of the chest Resp: Effort & Inspection: normal respiratory effort Auscultation: clear to ausc
[2022-04-05 02:51] VITALS: BP 118/86; PULSE 95; RESP 18; TEMP 36.8; O2SAT 95
== END 2022-04-05 02:57 | disposition home or self-care (01) ==
PROVIDERS: Emergency Provider Emergency Medicine
DX: R07.89 Other chest pain (principal)
CPT/HCPCS: 36415; 71045; 74176; 80053; 81003; 83690; 84484; 84703; 85025; 93005; 96360; 96361; 99284; A9270; J7030

== ENCOUNTER 2022-06-22 17:50 | Emergency (ER) | payer OTHER, SELFPAY ==
--- NOTE | ~2022-06-22 | XR_ITS ---
EXAM: XR ankle RT min 3V, XR foot RT min 3V DATE: 06/22/2022 18:17 HISTORY: twisted her ankle coming down the stairs, lateral pain . COMPARISON: None available. FINDINGS: Normal mineralization. No fracture or dislocation. No lytic or blastic lesion. Joint space s are maintained. No erosion or periosteal change. Soft tissues within normal limits. IMPRESSION: No acute osseous finding in the right ankle or foot. Reviewed, dictated and finalized at location K. [employer] AIDE IMPRESSION: No acute osseous finding in the right ankle or foot.
[2022-06-22 17:50] VITALS: BP 128/75; PULSE 96; RESP 16; TEMP 36.7; O2SAT 97
--- NOTE | 2022-06-22 18:01 | ED.LOWEXIN ---
HPI - Extremity Injury (Lower) General Chief Complaint: Extremity Injury, Lower Stated Complaint: right ankle injury Time Seen by Provider: 06/22/22 17:59 Source: patient Mode of arrival: ambulatory History of Present Illness HPI Narrative: 27-year-old female was coming down the steps when she missed the last step and twisted her ankle at 1.30 PM. She presents to the ER with -- right ankle pain -- right foot pain no other injuries noted. Patient is unable to place weight on her right lower extremity. MD complaint: ankle injury and foot injury Onset (ago): hour(s) ( 5 hours ago) Injury: Right: ankle and foot Type of Injury: inversion Place: work Severity: moderate Relieving factors: immobilization Exacerbating factors: weight bearing Context: direct blow Associated symptoms: swelling Other symptoms: none Treatments prior to arrival: cold therapy Related Data Home Medications Medication Instructions Recorded Confirmed No Home Medications 06/22/22 06/22/22 Allergies Allergy/AdvReac Type Severity Reaction Status Date / Time bacitracin Allergy Rash Verified 06/22/22 17:58 [From Neosporin ([id number])] neomycin Allergy Rash Verified 06/22/22 17:58 [From Neosporin ([id number])] polymyxin B Allergy Rash Verified 06/22/22 17:58 [From Neosporin ([id number])] Review of Systems Review of Systems: All systems reviewed & are unremarkable except as noted in HPI and below Constitutional: Constitutional: Reports as per HPI and Reports no additional constitutional complaints Eyes: Eyes: Reports as per HPI and Reports no additional eye complaints ENT: Reports system reviewed and no additional complaints, except as documented and Reports as per HPI Cardiovascular: Cardiovascular: Reports as per HPI and Reports no additional cardiovascular complaints Respiratory: Respiratory: Reports as per HPI and Reports no additional respiratory complaints Gastrointestinal: Gastrointestinal: Reports as per HPI and Reports no additional gastrointestinal complaints Genitourinary: Genitourinary: Reports no additional female genitourinary complaints and Reports as per HPI Comments: status post BTL Musculoskeletal: Musculoskeletal: Reports no additional musculoskeletal complaints and Reports as per HPI Comments: right ankle and foot pain Integumentary/Breasts: Skin/Breast: Reports system reviewed and no additional complaints, except as docu and Reports as per HPI Neurologic: Reports system reviewed and no additional complaints, except as documented and Reports as per HPI Psychiatric: Psychiatric: Reports no additional psychiatric complaints and Reports as per HPI Endocrine: Endocrine: Reports no additional endocrine complaints and Reports as per HPI Hematologic/Lymphatic: Hematologic/Lymphatic: Reports no additional hematologic/lymphatic complaints and Reports as per HPI Allergic/Immunologic: Allergic/Immunologic: Reports no additional allergic/immunologic complaints and Reports as per HPI [facility] Past Medical History Medical History Back pain Contusion of fifth toe, left Morbid obesity with BMI of 40.0-44.9, adult PIH ( induced hypertension) Smoker Surgical History Surgical History History of tonsillectomy and adenoidectomy Family History Family History Daughter Trisomy 21 Hypothyroidism Sibling Epilepsy Mother Hypothyroidism Social History Social History Smoking packs per day: 0.5 Smoking cigarettes per day: 10.0 Years smoked: 5 Smoking pack-years: 2.50 Smoking status: Current every day smoker Tobacco type: cigarettes Second hand tobacco smoke exposure: Yes Alcohol intake: current Substance use: never Living arrangements: with family Additional living arrangements co
[2022-06-22] MEDS: KETOROLAC 30 MG/ML VIAL (*BKC) IM (18:45)
[2022-06-22 19:00] VITALS: BP 140/90; PULSE 70; RESP 20; TEMP 37; O2SAT 98
== END 2022-06-22 19:02 | disposition home or self-care (01) ==
PROVIDERS: Emergency Provider Internal Medicine Critical Care Medicine; PCP Physician Assistant
DX: S93.401A Sprain of unspecified ligament of right ankle, initial encounter (principal); F17.210 Nicotine dependence, cigarettes, uncomplicated; X50.1XXA Overexertion from prolonged static or awkward postures, initial encounter
CPT/HCPCS: 73610; 73630; 96372; 99283; J1885; L4350

== ENCOUNTER 2022-08-04 23:09 | Emergency (ER) | payer OTHER, SELFPAY ==
[2022-08-04 23:12] VITALS: BP 141/90; PULSE 99; RESP 18; TEMP 36.3; O2SAT 94
--- NOTE | 2022-08-04 23:29 | ED.BACK ---
HPI - Back Pain/Injury General Chief Complaint: Back Pain/Injury Stated Complaint: Back Pain Source: patient Mode of arrival: ambulatory Limitations: no limitations History of Present Illness HPI Narrative: this is a 27-year-old female that presents with some right lower back pain musculoskeletal a tender with palpation and movement she does not recall injuring her lower back has a history of back problems. Currently there is no fever chills no radiation her pain no saddle paresthesias no fever chills no dysuria no hematuria no nausea vomiting no abdominal pain. MD elicited complaint: back pain Pertinent past history: prior back pain Onset (ago): day(s) Timing: constant Severity: moderate Pain scale (0-10): 7 Quality: spasming Location: lumbar spine Radiation: none Exacerbating factors: movement Relieving factors: immobilization Context: turning/twisting and bending Related Data Allergies Allergy/AdvReac Type Severity Reaction Status Date / Time bacitracin Allergy Rash Verified 06/22/22 17:58 [From Neosporin ([id number])] neomycin Allergy Rash Verified 06/22/22 17:58 [From Neosporin ([id number])] polymyxin B Allergy Rash Verified 06/22/22 17:58 [From Neosporin ([id number])] Review of Systems Review of Systems: All systems reviewed & are unremarkable except as noted in HPI and below PMFSH Past Medical History Medical History Back pain Contusion of fifth toe, left Morbid obesity with BMI of 40.0-44.9, adult PIH ( induced hypertension) Smoker Surgical History Surgical History History of tonsillectomy and adenoidectomy Family History Family History Daughter Trisomy 21 Hypothyroidism Sibling Epilepsy Mother Hypothyroidism Social History Social History Smoking packs per day: 0.5 Smoking cigarettes per day: 10.0 Years smoked: 5 Smoking pack-years: 2.50 Smoking status: Current every day smoker Tobacco type: cigarettes Second hand tobacco smoke exposure: Yes Alcohol intake: current Substance use: never Living arrangements: with family Additional living arrangements comments: HUSB & 2 CHILDREN Gender identity (if verbalized by the patient): Female Sexual Orientation (if Verbalized by the Patient): Straight or Heterosexual Spiritual care concerns: No Exam Const: General: healthy appearing Nutritional Appearance: well nourished Orientation/consciousness: patient oriented x3 Limitations: no limitations HENMT: Head: normal to inspection Eyes: Conjunctivae: conjunctivae normal Neck: Neck: normal visual inspection Chest: Chest palpation & inspection: normal inspection of the chest Resp: Effort & Inspection: normal respiratory effort Auscultation: clear to auscultation bilaterally Cardio: Rate: regular rate Rhythm: regular rhythm GI: GI Palp: Yes Soft to palpation Auscultation: normal bowel sounds : General: Yes bladder normal to palpation Urinary Catheter: Urinary Catheter: patent and draining Back/Spine/Pelvis: Back: no CVA tenderness Skin: General skin exam: normal color Rashes: no rashes Wounds: no wounds Neuro: General: patient oriented x3 and moves all extremities Extrem: Other: Right lower back pain with palpation with a negative straight leg raising test. Psych: Mental Status: mental status grossly normal Affect: normal affect Attitude: cooperative Course Course Emergency Course: Patient received 60mg IM Toradol reassessment patient pain level has improved. Vital Signs Vital signs: Vital Signs Temperature 36.3 C L 08/04/22 23:12 Pulse Rate 99 08/04/22 23:12 Respiratory Rate 18 08/04/22 23:12 Blood Pressure 141/90 H 08/04/22 23:12 Pulse Oximetry 94 08/04/22 23:12 Oxygen Delivery Room Air 08/04
[2022-08-04] MEDS: KETOROLAC (*BKC) 60 MG/2 ML VIAL IM (23:35)
== END 2022-08-05 | disposition home or self-care (01) ==
LOC: CHSED 23:40
PROVIDERS: Emergency Provider Emergency Medicine; PCP Physician Assistant
DX: S39.012A Strain of muscle, fascia and tendon of lower back, initial encounter (principal); F17.210 Nicotine dependence, cigarettes, uncomplicated
CPT/HCPCS: 96372; 99283; J1885

== ENCOUNTER 2022-08-21 16:48 | Emergency (ER) | payer OTHER, SELFPAY ==
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
[2022-08-21 16:51] VITALS: BP 127/78; PULSE 101; RESP 18; TEMP 36.4; O2SAT 99
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
[2022-08-21] MEDS: ACETAMINOPHEN 500 MG TABLET 1000 MG PO (18:17)
[2022-08-21] MEDS: IBUPROFEN 600 MG TABLET PO (18:17)
== END 2022-08-21 19:55 | disposition home or self-care (01) ==
PROVIDERS: Emergency Provider Physician Assistant; PCP Physician Assistant
DX: S93.401A Sprain of unspecified ligament of right ankle, initial encounter (principal); M25.471 Effusion, right ankle; F17.210 Nicotine dependence, cigarettes, uncomplicated; V89.2XXA Person injured in unspecified motor-vehicle accident, traffic, initial encounter
CPT/HCPCS: 73600; 73620; 99283; A9270

== ENCOUNTER 2023-05-27 10:13 | Emergency (ER) | payer OTHER, SELFPAY ==
--- NOTE | ~2023-05-27 | XR_ITS ---
XR chest 1V portable DATE: 05/27/2023 10:49 INDICATION: Shortness of breath, cough, congestion. Recent exposure to RDS. TECHNIQUE: Portable upright AP chest on 05/27/2023 at 1051 hours COMPARISON: 04/05/2022 portable AP chest at 0053 hours FINDINGS: Normal heart size. No hilar or mediastinal enlargement. No pulmonary infiltrate or consolid ation, pleural effusion or pulmonary vascular congestion or pneumothorax is detected. IMPRESSION: No active cardiopulmonary disease Reviewed, dictated and finalized at location A. [employer] ENGINEER
[2023-05-27 10:13] VITALS: O2SAT 95
--- NOTE | 2023-05-27 10:17 | ED.SOB ---
HPI - SOB/Dyspnea General Chief Complaint: Shortness of Breath/Dyspnea Stated Complaint: SOB Time Seen by Provider: 05/27/23 10:17 Source: patient Mode of arrival: ambulatory Limitations: no limitations History of Present Illness HPI Narrative: 28-year-old female presents to the ER with a 2 day history of -- nonproductive cough -- shortness of breath with wheezing -- no sore throat no fever her son and daughter tested positive for RSV the patient does not have a prior history of asthma MD elicited complaint: shortness of breath and cough Onset (ago): day(s) ( 2 days) Exacerbating factors: nothing Relieving factors: nothing Associated symptoms: cough Treatment prior to arrival: none Related Data Home oxygen amount: none Allergies Allergy/AdvReac Type Severity Reaction Status Date / Time bacitracin Allergy Rash Verified 05/27/23 10:29 [From Neosporin ([id number])] neomycin Allergy Rash Verified 05/27/23 10:29 [From Neosporin ([id number])] polymyxin B Allergy Rash Verified 05/27/23 10:29 [From Neosporin ([id number])] Review of Systems Review of Systems: All systems reviewed & are unremarkable except as noted in HPI and below Constitutional: Constitutional: Reports as per HPI and Reports no additional constitutional complaints Eyes: Eyes: Reports as per HPI and Reports no additional eye complaints ENT: Reports system reviewed and no additional complaints, except as documented and Reports as per HPI Cardiovascular: Cardiovascular: Reports as per HPI and Reports no additional cardiovascular complaints Respiratory: Respiratory: Reports as per HPI, Reports no additional respiratory complaints, Reports cough, Reports dyspnea and Reports wheezing Gastrointestinal: Gastrointestinal: Reports as per HPI, Reports no additional gastrointestinal complaints and Reports vomiting Comments: the patient vomits with these coughing spells Genitourinary: Genitourinary: Reports no additional female genitourinary complaints and Reports as per HPI Musculoskeletal: Musculoskeletal: Reports no additional musculoskeletal complaints and Reports as per HPI Comments: chest pain during coughing Integumentary/Breasts: Skin/Breast: Reports system reviewed and no additional complaints, except as docu and Reports as per HPI Neurologic: Reports system reviewed and no additional complaints, except as documented and Reports as per HPI Psychiatric: Psychiatric: Reports no additional psychiatric complaints and Reports as per HPI Endocrine: Endocrine: Reports no additional endocrine complaints and Reports as per HPI Hematologic/Lymphatic: Hematologic/Lymphatic: Reports no additional hematologic/lymphatic complaints and Reports as per HPI Allergic/Immunologic: Allergic/Immunologic: Reports no additional allergic/immunologic complaints and Reports as per HPI PMFSH Past Medical History Medical History Back pain Contusion of fifth toe, left Morbid obesity with BMI of 40.0-44.9, adult PIH ( induced hypertension) Smoker Surgical History Surgical History History of tonsillectomy and adenoidectomy Family History Family History Daughter Trisomy 21 Hypothyroidism Sibling Epilepsy Mother Hypothyroidism Unknown Asthma Hypertension Cerebrovascular accident Social History Social History Smoking packs per day: 0.5 Smoking cigarettes per day: 10.0 Years smoked: 5 Smoking pack-years: 2.50 Smoking status: Current every day smoker Tobacco type: cigarettes Second hand tobacco smoke exposure: Yes Alcohol intake: current Substance use: never Living arrangements: with family Additional living arrangements comments: HUSB & 2 CHILDREN Occupation/Education: occupation Additional occupation
[2023-05-27 10:18] VITALS: BP 123/90; PULSE 98; RESP 20; TEMP 36.3; O2SAT 95
[2023-05-27] MEDS: methylPREDNISolone SOD SUCC 125 MG VIAL IM (10:32)
[2023-05-27] MEDS: IPRATROPIUM 0.5 MG/ALBUTEROL SULFATE 2.5 MG AMPUL.NEB 3 ML INHALATION (10:32)
[2023-05-27 10:54] LABS: Influenza A QL RT-PCR Negative (Negative); Influenza B QL RT-PCR Negative (Negative); RSV RNA, RT-PCR Positive (Negative); SARS-CoV-2 RNA PCR Negative (Negative)
[2023-05-27 11:26] VITALS: BP 112/73; PULSE 88; RESP 20; TEMP 36.8; O2SAT 94
[2023-05-27 11:32] VITALS: BP 112/73; PULSE 88; RESP 20; TEMP 36.8; O2SAT 94
== END 2023-05-27 11:32 | disposition home or self-care (01) ==
PROVIDERS: Emergency Provider Internal Medicine Critical Care Medicine; PCP Physician Assistant
DX: J20.5 Acute bronchitis due to respiratory syncytial virus (principal); F17.210 Nicotine dependence, cigarettes, uncomplicated; Z20.822 Contact with and (suspected) exposure to COVID-19
CPT/HCPCS: 71045; 87637; 96372; 99283; J2930

== ENCOUNTER 2023-09-07 00:56 | Emergency (ER) | payer OTHER, SELFPAY ==
--- NOTE | ~2023-09-07 | XR_ITS ---
Right Knee Technique: AP, lateral, and oblique views were obtained. Clinical History: Pain Findings: No fracture or dislocation is seen. Osseous alignment is anatomic. Joint spaces are preserv ed without degenerative or erosive change. Soft tissues are unremarkable. No joint effusion is seen. Impression: Unremarkable right knee radiographs. Reviewed, dictated and finalized at location . Impression: Unremarkable right knee radiographs.
--- NOTE | ~2023-09-07 | XR_ITS ---
Lumbosacral Spine: AP and lateral views Clinical History: Pain Findings: The normal lordotic curve is maintained. The vertebral bodies and posterior elements are i ntact. The intervertebral disc spaces are preserved. The sacroiliac joints are normally outlined. Impression: No significant abnormality. Reviewed, dictated and finalized at [facility]. Impression: No significant abnormality.
[2023-09-07 00:56] VITALS: BP 132/95; PULSE 87; RESP 18; TEMP 36.8; O2SAT 96
[2023-09-07 00:59] VITALS: BP 132/95; PULSE 86; RESP 18; TEMP 36.4; O2SAT 96
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
[2023-09-07 01:28] LABS: Pregnancy On Board Control Positive; Urine Pregnancy Test Negative
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
[2023-09-07] MEDS: KETOROLAC 30 MG/ML VIAL (*BKC) IM (02:10)
[2023-09-07 02:21] VITALS: BP 130/87; PULSE 89; RESP 20; O2SAT 96
== END 2023-09-07 02:21 | disposition home or self-care (01) ==
PROVIDERS: Emergency Provider Internal Medicine Critical Care Medicine; PCP Physician Assistant
DX: M54.50 Low back pain, unspecified (principal); M25.561 Pain in right knee; V40.5XXA Car driver injured in collision with pedestrian or animal in traffic accident, initial encounter; F17.210 Nicotine dependence, cigarettes, uncomplicated; Z79.51 Long term (current) use of inhaled steroids
CPT/HCPCS: 72100; 73564; 81025; 96372; 99284; J1885

== ENCOUNTER 2023-09-17 21:14 | Emergency (ER) | payer OTHER, SELFPAY ==
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
[2023-09-17 21:21] VITALS: BP 127/83; PULSE 93; RESP 18; TEMP 36.3; O2SAT 99
--- NOTE | 2023-09-17 22:28 | PC.NURSE ---
tommie mora - motrin 800mg and tylenol 1gm po stat.
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
[2023-09-17] MEDS: IBUPROFEN 400 MG TABLET 800 MG PO (22:34)
[2023-09-17] MEDS: ACETAMINOPHEN 500 MG TABLET 1000 MG PO (22:34)
[2023-09-17 22:52] VITALS: BP 136/78; PULSE 68; RESP 16; O2SAT 98
== END 2023-09-17 22:53 | disposition home or self-care (01) ==
PROVIDERS: Emergency Provider Emergency Medicine; PCP Physician Assistant
DX: M25.561 Pain in right knee (principal); E66.01 Morbid (severe) obesity due to excess calories; Z68.38 Body mass index [BMI] 38.0-38.9, adult; F17.210 Nicotine dependence, cigarettes, uncomplicated
CPT/HCPCS: 73562; 99283; A9270

== ENCOUNTER 2023-11-18 21:14 | Emergency (ER) | payer OTHER, SELFPAY ==
[2023-11-18 21:14] VITALS: BP 141/81; PULSE 101; RESP 18; TEMP 36.2; O2SAT 96
--- NOTE | 2023-11-18 21:28 | ED.SKABFB ---
HPI - Skin/Abscess/Foreign Bdy General Chief complaint: Skin/Abscess/Foreign Body Stated complaint: R armpit abscess Time Seen by Provider: 11/18/23 21:28 Source: patient Mode of arrival: ambulatory Limitations: no limitations History of Present Illness HPI narrative: 28-year-old female with obesity, recurrent axillary abscesses presents to the ER with a 3 day history of -- right axillary abscess with pain and swelling. No fever or chills. Onset (ago): day(s) ( Three days) Tetanus up to date: yes Location: RUE Severity: moderate Quality: aching Pain Consistency: constant Relieving factors: none Exacerbating factors: none Associated symptoms: denies other symptoms Treatments prior to arrival: none Related Data Allergies Allergy/AdvReac Type Severity Reaction Status Date / Time bacitracin Allergy Rash Verified 09/17/23 21:24 [From Neosporin ([id number])] neomycin Allergy Rash Verified 09/17/23 21:24 [From Neosporin ([id number]-[id number])] polymyxin B Allergy Rash Verified 09/17/23 21:24 [From Neosporin ([id number]-[id number])] Review of Systems Review of Systems: All systems reviewed & are unremarkable except as noted in HPI and below PMFSH Past Medical History Medical History Axillary abscess Back pain Contusion of fifth toe, left Morbid obesity with BMI of 40.0-44.9, adult PIH ( induced hypertension) Smoker Surgical History Surgical History History of tonsillectomy and adenoidectomy Family History Family History Daughter Trisomy 21 Hypothyroidism Sibling Epilepsy Mother Hypothyroidism Unknown Asthma Hypertension Cerebrovascular accident Social History Social History Smoking packs per day: 0.5 Smoking cigarettes per day: 10.0 Years smoked: 5 Smoking pack-years: 2.50 Smoking status: Current every day smoker Tobacco type: cigarettes Second hand tobacco smoke exposure: Yes Alcohol intake: current Substance use: never Living arrangements: with family Additional living arrangements comments: HUSB & 2 CHILDREN Occupation/Education: occupation 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 Gender identity (if verbalized by the patient): Female Sexual Orientation (if Verbalized by the Patient): Straight or Heterosexual Spiritual care concerns: No Exam Narrative: afebrile Const: General: healthy appearing and no acute distress Nutritional Appearance: well nourished Orientation/consciousness: patient oriented x3 Limitations: no limitations HENMT: Head: normal to inspection Ears: external ears normal Mouth: Yes Normal oral and palatal mucosa present Throat: posterior oropharynx normal Eyes: Conjunctivae: conjunctivae normal Pupils: Equal, round and reactive pupils present EOM: EOMs intact bilaterally Direct Ophthalmoscopy: no photophobia Neck: Neck: normal visual inspection, no lymphadenopathy and no meningeal signs Chest: Chest palpation & inspection: normal inspection of the chest and abnormal inspection of the chest Resp: Effort & Inspection: normal respiratory effort Auscultation: clear to auscultation bilaterally Cardio: Rate: regular rate Rhythm: regular rhythm GI: Auscultation: normal bowel sounds Other: no tenderness/rigidity / rebound. : General: Yes no CVA tenderness Back/Spine/Pelvis: Back: no CVA tenderness Skin: General skin exam: normal color Other: Right axillary abscess measuring 3 cm. Abscess is fluctuant. Tender on palpation. No regional lymphadenopathy noted. Neuro: General: patient oriented x3, moves all extremities, no meningeal signs, no focal motor deficits and CN's II-XI intact bilaterally Cranial nerves: Yes Nystagmus not present Speech: normal speech Gait exam (Neuro): Normal gait pr
--- NOTE | 2023-11-18 21:37 | PC.NURSE ---
notified lab that orders were placed
--- NOTE | 2023-11-18 21:42 | PC.NURSE ---
supplies gathered and placed at the bedside. patient currently has gauze covering wound to right axilla. lab is at the bedside
--- NOTE | 2023-11-18 21:55 | PC.NURSE ---
sent patient to the bathroom to give urine sample. lab has finished drawing blood
[2023-11-18 22:04] LABS: Appearance Urine Clear (Clear); Basophils Absolute Auto 0.03 K/mm3 (0.00-0.10); Basophils Percent Auto 0.3 % (0.0-1.0); Bilirubin Urine Negative (Negative); Blood Urine Negative (Negative); Color Urine Yellow (Yellow); Eosinophils Absolute Auto 0.19 K/mm3 (0.02-0.50); Eosinophils Percent Auto 1.7 % (1.0-6.0); Glucose Urine UA Negative (Negative); Hematocrit 39.6 % (35.0-49.0); Hemoglobin 13.5 g/dL (12.0-15.0); Immature Granulocyte Absolute 0.02 K/mm3 (0.00-0.00); Immature Granulocyte Percent A 0.2 % (0.0-0.0); Ketones Urine Negative (Negative); Leukocyte Esterase Ur Negative LEU/UL (Negative); Lymphocytes Percent Auto 27.6 % (18.0-42.0); Mean Corpuscular HGB Conc 34.1 g/dL (32-36); Mean Corpuscular Hemoglobin 31.1 pg (27.0-31.0); Mean Corpuscular Volume 91.2 fL (78.0-102.0); Mean Platelet Volume 11.2 fl (9.2-11.8); Monocytes Absolute Auto 0.66 K/mm3 (0.10-0.90); Monocytes Percent Auto 5.9 % (2.0-11.0); Neutrophils Absolute Auto 7.24 K/mm3 (1.70-7.20); Neutrophils Percent Auto 64.3 % (50.0-70.0); Nitrate Urine Negative (Negative); Platelet Count Result 223 K/mm3 (150-420); Protein Urine Negative (Negative); Red Blood Count 4.34 M/mm3 (4.20-5.40); Specific Grav Ur >= 1.030 (1.010-1.020); Urobilinogen Urine 0.2 mg/dL (0.2-1.0); White Blood Count 11.2 K/mm3 (4.8-10.8)
[2023-11-18 22:06] LABS: Add Urine Microscopic? NO
--- NOTE | 2023-11-18 22:10 | PC.NURSE ---
patient stepped outside to get her phone air quality instrument specialist
[2023-11-18 22:19] LABS: Alanine Aminotransferase 32 U/L (14-59); Albumin Level 3.3 g/dL (3.4-5.0); Alkaline Phosphatase 104 U/L (46-116); Anion Gap 10 mmol/L (4-12); Aspartate Amino Transferase 14 U/L (15-37); Bilirubin,Total 0.3 mg/dL (0.00-1.00); Blood Urea Nitrogen 8 mg/dL (7-18); Calcium 8.2 mg/dL (8.5-10.1); Carbon Dioxide 24 mmol/L (21-32); Chloride 103 mmol/L (98-108); Estimated CRCL calculation 109 ml/min; Estimated Glomerular Filt Rate > 60; Glucose 107 mg/dL (70-99); Osmolality Calculated 282 mOsm/kg (285-295); Potassium 3.4 mmol/L (3.5-5.1); Sodium 137 mmol/L (136-145); Total Protein 7.4 g/dL (6.4-8.2)
--- NOTE | 2023-11-18 22:24 | PC.NURSE ---
patient returned to room. notified lab that new order was placed.
[2023-11-18 22:26] LABS: Lactic Acid Reflex 0.9 mmol/L (0.4-2.0)
[2023-11-18 22:27] LABS: Thyroid Stimulating Hormone 3.01 uIU/mL (0.36-3.74)
--- NOTE | 2023-11-18 22:29 | PC.NURSE ---
lab at the bedside
[2023-11-18] MEDS: LIDOCAINE HCL 1% LOCAL INJ 10 ML VIAL 5 ML INFILTRATE (22:31)
[2023-11-18] MEDS: AMOXICILLIN/CLAVULANATE K 875-125 MG TAB 1 TABLET PO (22:32)
--- NOTE | 2023-11-18 22:33 | PC.NURSE ---
Dr Grande at the bedside
--- NOTE | 2023-11-18 22:45 | PC.NURSE ---
this RN walked wound culture down to lab
--- NOTE | 2023-11-18 22:54 | PC.NURSE ---
4x4 folded into a small square placed over wound. secured with medipore tape.
[2023-11-18] MEDS: KETOROLAC 30 MG/ML VIAL (*BKC) IM (23:02)
[2023-11-18 23:18] VITALS: BP 138/82; PULSE 88; RESP 18; O2SAT 97
[2023-11-18 23:59] LABS: MRSA (PCR) NOT DETECTED (NOT DETECTE)
--- NOTE | 2023-11-25 12:10 | PC.NURSE ---
FINAL BLOOD CULTURE NO GROWTH AFTER 5 DAYS
== END 2023-11-18 23:18 | disposition home or self-care (01) ==
PROVIDERS: Emergency Provider Internal Medicine Critical Care Medicine; PCP Physician Assistant
DX: L02.411 Cutaneous abscess of right axilla (principal); F17.210 Nicotine dependence, cigarettes, uncomplicated
CPT/HCPCS: 10061; 36415; 80053; 81003; 83605; 84443; 85025; 87040; 87641; 96372; 99283; A9270; J1885

== ENCOUNTER 2024-01-29 17:17 | Emergency (ER) | payer OTHER, SELFPAY ==
--- NOTE | ~2024-01-29 | CT_ITS ---
EXAMINATION: CT abdomen pelvis w con DATE: 01/29/2024 18:53 INDICATION: Right abdominal pain TECHNIQUE: Computed tomography (CT) of the abdomen and pelvis was performed with 100 mL Omnipaque-350 intravenous contrast. Automated exposure control and iterative reconstruction technique were employe d. The dose-length product was 1517.47 mGy-cm. COMPARISON: 04/05/2022 FINDINGS: Lung bases are clear. Heart size is normal. No pericardial or pleural effusion. Liver, gallbladder, s pleen, pancreas, bilateral adrenal glands and kidneys are normal. Bladder, anteverted uterus and bila teral adnexa are unremarkable. Bowels including the appendix are normal. No free intraperitoneal gas or fluid. No pathologically enlarged abdominal or pelvic lymphadenopathy. Mild lumbar spondylosis. IMPRESSION: 1. No acute intra-abdominal/pelvic process. Reviewed, dictated and finalized at location A.
[2024-01-29 17:19] VITALS: BP 140/95; PULSE 85; RESP 18; TEMP 36.1; O2SAT 100
--- NOTE | 2024-01-29 17:28 | ED.ABDPAIN ---
HPI - Abdominal Pain General Chief Complaint: Abdominal Pain Stated Complaint: CHRONES FLARE UP Time Seen by Provider: 01/29/24 17:19 Source: patient and family Limitations: no limitations History of Present Illness HPI narrative: 28 years old white female wake up this morning with pain, cramps, stabbing pain all over the abdomen mainly at the right lower quadrant associated with nausea. She denies any fever or chills or vomiting diarrhea. Patient is telling me that she have history of possible Crohn disease versus IBS, had colonoscopy 2017 and was nondiagnostic at that time. Patient does not have harness cleaner, does not take medicine, she smokes drinks occasionally. History of tubal ligation. Related Data Allergies Allergy/AdvReac Type Severity Reaction Status Date / Time bacitracin Allergy Rash Verified 01/29/24 19:05 [From Neosporin ([id number])] neomycin Allergy Rash Verified 01/29/24 19:05 [From Neosporin (pow-ral-cqipt)] polymyxin B Allergy Rash Verified 01/29/24 19:05 [From Neosporin ([id number]-[id number])] Review of Systems Review of Systems: All systems reviewed & are unremarkable except as noted in HPI and below PMFSH Past Medical History Medical History Axillary abscess Back pain Contusion of fifth toe, left Morbid obesity with BMI of 40.0-44.9, adult PIH ( induced hypertension) Smoker Surgical History Surgical History History of tonsillectomy and adenoidectomy Family History Family History Daughter Trisomy 21 Hypothyroidism Sibling Epilepsy Mother Hypothyroidism Unknown Asthma Hypertension Cerebrovascular accident Social History Social History Smoking packs per day: 0.5 Smoking cigarettes per day: 10.0 Years smoked: 5 Smoking pack-years: 2.50 Smoking status: Current every day smoker Tobacco type: cigarettes Second hand tobacco smoke exposure: Yes Alcohol intake: current Substance use: never Living arrangements: with family Additional living arrangements comments: HUSB & 2 CHILDREN Occupation/Education: occupation 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 Gender identity (if verbalized by the patient): Female Sexual Orientation (if Verbalized by the Patient): Straight or Heterosexual Spiritual care concerns: No Exam Narrative: General appearance: Well-developed, well-nourished Skin: Normal color Head: Normocephalic, nontraumatic Eyes: Clear conjunctiva ENT: Oropharynx normal, ears normal, nose normal Neck: Supple, nontender Chest and respiratory: Airway patent, no respiratory distress, no accessory muscle use Heart: Regular rate/rhythm Abdomen: Soft, Diffuse tenderness lower abdomen bilaterally mainly on the right lower quadrant, no guarding or rebound, no organomegaly, quiet bowel sounds Vascular: Normal peripheral pulses, normal capillary refill. Musculoskeletal: Normal range of motion, nontender back Neurologic: Alert and oriented ?3, COMPUTER SYSTEMS ENGINEER is normal as tested, no gross motor deficit Course Vital Signs Vital signs: Vital Signs Temperature 36.1 C L 01/29/24 17:19 Pulse Rate 85 01/29/24 17:19 Respiratory Rate 18 01/29/24 17:19 Blood Pressure 140/95 H 01/29/24 17:19 Pulse Oximetry 100 01/29/24 17:19 Oxygen Delivery Room Air 01/29/24 17:19 Temperature 36.1 C L 01/29/24 17:19 Pulse Rate 85 01/29/24 17:19 Respiratory Rate 18 01/29/24 17:19 Blood Pressure 140/95 H 01/29/24 17:19 Pulse Oximetry 100 01/29/24 17:19 Ox
[2024-01-29] MEDS: SODIUM CHLORIDE 0.9% IV 1,000 ML 999 ML IV CONT (17:38)
[2024-01-29] MEDS: ONDANSETRON INJ 4 MG/2 ML VIAL IV PUSH (17:40)
[2024-01-29] MEDS: MORPHINE SULFATE (*CRX) 4 MG/ML INJ IV PUSH (17:40)
[2024-01-29 17:41] LABS: Basophils Absolute Auto 0.05 K/mm3 (0.00-0.10); Basophils Percent Auto 0.5 % (0.0-1.0); Eosinophils Absolute Auto 0.17 K/mm3 (0.02-0.50); Eosinophils Percent Auto 1.8 % (1.0-6.0); Hematocrit 40.5 % (35.0-49.0); Hemoglobin 13.5 g/dL (12.0-15.0); Immature Granulocyte Absolute 0.04 K/mm3 (0.00-0.00); Immature Granulocyte Percent A 0.4 % (0.0-0.0); Lymphocytes Absolute Auto 2.99 K/mm3 (1.10-4.50); Lymphocytes Percent Auto 31.7 % (18.0-42.0); Mean Corpuscular HGB Conc 33.3 g/dL (32-36); Mean Corpuscular Hemoglobin 30.6 pg (27.0-31.0); Mean Corpuscular Volume 91.8 fL (78.0-102.0); Mean Platelet Volume 10.8 fl (9.2-11.8); Monocytes Absolute Auto 0.44 K/mm3 (0.10-0.90); Monocytes Percent Auto 4.7 % (2.0-11.0); Neutrophils Absolute Auto 5.74 K/mm3 (1.70-7.20); Neutrophils Percent Auto 60.9 % (50.0-70.0); Platelet Count Result 233 K/mm3 (150-420); Red Blood Count 4.41 M/mm3 (4.20-5.40); Red Cell Distribution Width 12.7 % (11.6-14.4); White Blood Count 9.4 K/mm3 (4.8-10.8)
[2024-01-29 17:54] LABS: Add Urine Microscopic? NO; Appearance Urine Clear (Clear); Bilirubin Urine Negative (Negative); Blood Urine Negative (Negative); Color Urine Light Yellow (Yellow); Glucose Urine UA Negative (Negative); Ketones Urine Negative (Negative); Leukocyte Esterase Ur Negative LEU/UL (Negative); Nitrate Urine Negative (Negative); Protein Urine Negative (Negative); Specific Grav Ur 1.025 (1.010-1.020); Urobilinogen Urine 0.2 mg/dL (0.2-1.0)
[2024-01-29 18:00] LABS: Alanine Aminotransferase 36 U/L (14-59); Albumin Level 3.4 g/dL (3.4-5.0); Alkaline Phosphatase 112 U/L (46-116); Anion Gap 10 mmol/L (4-12); Aspartate Amino Transferase 16 U/L (15-37); Bilirubin,Total 0.2 mg/dL (0.00-1.00); Blood Urea Nitrogen 12 mg/dL (7-18); Calcium 8.5 mg/dL (8.5-10.1); Carbon Dioxide 27 mmol/L (21-32); Chloride 102 mmol/L (98-108); Estimated CRCL calculation 107 ml/min; Estimated Glomerular Filt Rate > 60; Glucose 103 mg/dL (70-99); Lipase 19 U/L (16-77); Osmolality Calculated 287 mOsm/kg (285-295); Potassium 3.7 mmol/L (3.5-5.1); Sodium 139 mmol/L (136-145); Total Protein 7.1 g/dL (6.4-8.2)
--- NOTE | 2024-01-29 19:00 | PC.NURSE ---
Pt resting comfortably in stretcher. Awaiting CT results.
[2024-01-29 19:35] VITALS: BP 128/92; PULSE 84; RESP 16; O2SAT 99
== END 2024-01-29 19:40 | disposition home or self-care (01) ==
PROVIDERS: Emergency Provider Emergency Medicine; PCP Physician Assistant
DX: R10.31 Right lower quadrant pain (principal); K50.90 Crohn's disease, unspecified, without complications; F17.210 Nicotine dependence, cigarettes, uncomplicated
CPT/HCPCS: 36415; 74177; 80053; 81003; 83690; 85025; 96361; 96374; 96375; 99284; J2270; J2405; J7030; Q9967

== ENCOUNTER 2024-08-05 22:46 | Emergency (ER) | payer OTHER, SELFPAY ==
--- NOTE | ~2024-08-05 | XR_ITS ---
HISTORY: LATERAL PAIN AFTER TWISTING COMPARISON: None TECHNIQUE: 3 views of the right foot were performed FINDINGS: No acute fracture or dislocation is appreciated. No significant degenerative disease is noted. The base of the fifth metatarsal is intact. A small calcaneal spur is noted. No significant soft tissue swelling is present. IMPRESSION: No acute fracture or dislocation Reviewed, dictated and finalized at location A.
--- NOTE | ~2024-08-05 | XR_ITS ---
HISTORY: LATERAL PAIN AFTER TWISTING COMPARISON: None TECHNIQUE: 3 views of the right ankle were performed FINDINGS: No acute fracture or dislocation. No significant soft tissue swelling. The ankle mortise is preserved. Bone mineralization is age-appropriate. IMPRESSION: No acute fracture as detailed above. Reviewed, dictated and finalized at location A.
--- OUTSIDE RECORDS SUMMARY | 2024-08-05 22:49 | XMS_ITS | Encounter Summary ---
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
--- OUTSIDE RECORDS SUMMARY | 2024-08-05 22:49 | XMS_ITS | Clinical Summary ---
Author Organization [facility] Address [facility] [place] [address] Care Team Providers Care Commercial Technician Name Role Phone Ariel Willoughby Primary Care Provider [phone] Allergies Active Allergy Reactions Criticality Noted Date Comments Bacitracin-Polymyxin B Rash Low 08/15/2022 Medications dicyclomine (BENTYL) 10 MG capsule Take 1 capsule (10 mg total) by mouth 4 (four) times daily before meals and nightly. 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 Sex 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 Gender Identity Not on file Sexual Orientation Not on file Last Filed Vital Signs Vital Sign Reading Time Taken Comments Blood Pressure 155/114 04/14/2024 5:40 PM CHILDREN LIBRARIAN Pulse 96 04/14/2024 4:04 PM CHILDREN LIBRARIAN Temperature 36.6 C (97.9 F) 04/14/2024 4:04 PM CHILDREN LIBRARIAN Respiratory Rate 20 04/14/2024 4:04 PM CHILDREN LIBRARIAN Oxygen Saturation 100% 04/14/2024 5:40 PM CHILDREN LIBRARIAN Inhaled Oxygen Concentration - - Weight 133.8 kg (295 lb) 04/14/2024 4:04 PM CHILDREN LIBRARIAN Height 175.3 cm (5' 9 ) 04/14/2024 4:04 PM CHILDREN LIBRARIAN Body Mass Index 43.56 04/14/2024 4:04 PM CHILDREN LIBRARIAN Plan of Treatment Health Maintenance Due Date Last Done Comments Cervical Cancer Screening Pa p Smear (Age 21 to 29) Every 3 Years 1997 Cervical Cancer Screening 1997 Annual Physical 2000 Pneumococcal Vaccine: Pediatrics (0 to 5 Years) and At-Risk Patients (6 to 64 Years) (1 of 2 - PCV) 2003 Hepatitis C 2015 Hepatitis B Vaccines (1 of 3 - 19+ 3-dose series) 2016 COVID-19 Vaccine (1 - 2023-2 5 season) 2024 DTaP, Tdap and Td Vaccines ( 3 - Td or Tdap) 03/12/2031 03/12/2021, 01/10/2017 HPV Vaccines Aged Out No longer eligi ble based on patient's age to complete this topic Meningococcal B Vaccine Aged Out No l onger eligible based on patient's age to complete this topic Meningococcal Vaccine Aged Out No everardo nabor eligible based on patient's age to complete this topic RSV Immunizations Under 20 Months Aged Out No longer eligible b ased on patient's age to complete this topic Insurance Care Teams Commercial Technician Relationship Specialty Start Date End Date Ariel Willoughby PA [address] [place] [phone] PCP - General PHYSICIAN BATTERY ASSEMBLER DRY CELL 12/03/21
--- OUTSIDE RECORDS SUMMARY | 2024-08-05 22:49 | XMS_ITS | Continuity of Care Document ---
Author Organization [facility] Address [address] [place] [address] Phone Care Team Providers Care Glaze Maker Name Role Phone Unavailable Unavailable Unavailable Advance Directives Directive Yes / No Effective Date File Name No Information Encounters Encounter Description Practice Location Reason(s) For Visit Diagnoses Date Provider Providers Copied on Encounter [facility], [address] [facility], [place], [place], [id number], [place] tel:[phone] [facility] INPATIENT No Information No Information Referring Provider: SALVADOR Garcia, [address], [place], [address]. tel:[phone] Family History Family Member Type Diagnosis Age At Onset No Information Payers Payer name Insurance type Covered libertarian ID Authormarya matt(s) [facility] INDEMNITY [id number] Social History Type Description Quantity Date Captured Comments Sex Female Smoking Status No Information Chief Complaint And Reason For Visit No Information History Of Present Illness Encounter Date Complaint History Of Prese nt Illness No Information Instructions Date Instruction Additional Infor mation No Information Assessments Type Assessment Date No Information
--- OUTSIDE RECORDS SUMMARY | 2024-08-05 22:49 | XMS_ITS | Continuity of Care Document ---
Author Organization [facility] Address [address] [place] [address] Phone Care Team Providers Care Datapower Developer Name Role Phone Bronson Bautista MD Unavailable Unavailable Allergies, Adverse Reactions, Alerts Substance Reaction Status Criticality No Known Allergies Active No Inform ation Procedures Procedure Date OFFICE/OUTPATIENT VISIT, [facility] OFFICE/OUTPATIENT VISIT, [facility] Advance Directives Directive Yes / No Effective Date File Name No Information Encounters Encounter Description Practice Location Reason(s) For Visit Diagnoses Date Provider Providers Copied on Encounter [facility], [address] [place] [address], [facility], tel:[phone] [facility] No Information 7 Lily Dobson. [address] [place] [address], [facility], . tel:[phone] OFFICE/OUTPAT IENT VISIT, [facility], [address] [place] [address], [facility], tel:[phone] [place] Cold symptoms (chief complaint) Acute upper respiratory infection, unspecified 6 No Information OFFICE/OUTPAT IENT VISIT, [facility], [address] [place] [address], [facility], tel:[phone] [place] ELBOW INJURY (chief complaint) Pain in left elbow 5 No Information Family History Family Member Type Diagnosis Age At Onset No Information Payers Payer name Insurance type Covered libertarian ID Authoriza tion(s) [facility] [id number] Social History Type Description Quantity Date Captured Comments Sex Female Smoking Status No Information Chief Complaint And Reason For Visit No Information Reason For Referral Reason For Referral No Information Plan Of Treatment Date Type Action Status Referral Ordered: X-RAY EXAM OF ELBOW Left elbow ordered History Of Present Illness Encounter Date Complaint History Of Prese nt Illness Cold symptoms Onset: 5 Days ag o. The severity of the problem is moderate and has worsened. The symptoms are persistent. Symptoms are associated with exposure to strep and sick family member. Aggravating factors include cold air. Denies relieving factors. Associated symptoms include cough (cough is productive), headache, nasal congestion, otalgia, pharyngitis and sinus pressure. Pertinent negatives include fever and postnasal drainage. ELBOW INJURY The symptoms beg an 30 minutes ago. Pt is here for a left elbow injury. Pt tripped on a step and hit her elbow on the side of a cynder block. Pt elbow is stinging. she currently has her elbow bend and held to her body. It hurts her arm to extend it. Functional Status Date Functional Assessmen t No Information Instructions Date Instruction Additional Infor winsome Educated that antibi otics are not prescribed for viral infections. Related to Acute upper respiratory infection, unspecified Assessments Type Assessment Date No Information Patient Care Teams Name Effective Dates (start - stop) Status Members No Information
[2024-08-05 22:55] VITALS: BP 140/69; PULSE 89; RESP 18; TEMP 36.3; O2SAT 99
--- OUTSIDE RECORDS SUMMARY | 2024-08-05 22:58 | XMS_ITS | Continuity of Care Document ---
Author Organization [facility] Address [address] [place] [address] Phone Care Team Providers Care Printing Machinist Name Role Phone Bronson Bautista MD Unavailable Unavailable Allergies, Adverse Reactions, Alerts Substance Reaction Status Criticality No Known Allergies Active No Inform ation Procedures Procedure Date OFFICE/OUTPATIENT VISIT, [facility] OFFICE/OUTPATIENT VISIT, [facility] Advance Directives Directive Yes / No Effective Date File Name No Information Encounters Encounter Description Practice Location Reason(s) For Visit Diagnoses Date Provider Providers Copied on Encounter [facility], [address] [place] [address], [facility], tel:[phone] [facility] No Information 7 Lily Dobson. [address] [place] [address], [facility], . tel:[phone] OFFICE/OUTPAT IENT VISIT, [facility], [address] [place] [address], [facility], tel:[phone] [place] Cold symptoms (chief complaint) Acute upper respiratory infection, unspecified 6 No Information OFFICE/OUTPAT IENT VISIT, [facility], [address] [place] [address], [facility], tel:[phone] [place] ELBOW INJURY (chief complaint) Pain in left elbow 5 No Information Family History Family Member Type Diagnosis Age At Onset No Information Payers Payer name Insurance type Covered alliance party ID Authoriza tion(s) [facility] [id number] Social History Type Description Quantity Date Captured [...]
--- OUTSIDE RECORDS SUMMARY | 2024-08-05 22:58 | XMS_ITS | Continuity of Care Document ---
Author Organization [facility] Address [address] [place] [address] Phone Care Team Providers Care Egg Caser Name Role Phone Unavailable Unavailable Unavailable Advance Directives Directive Yes / No Effective Date File Name No Information Encounters Encounter Description Practice Location Reason(s) For Visit Diagnoses Date Provider Providers Copied on Encounter [facility], [address] [facility], [place], [place], [id number], [place] tel:[phone] [facility]IENT No Information No Information Referring Provider: SALVADOR Garcia, [address], [place], [address]. tel:[phone] Family History Family Member Type Diagnosis Age At Onset No Information Payers Payer name Insurance type Covered constitution party ID Authormarya matt(s) [facility] INDEMNITY [id number] Social History Type Description Quantity Date Captured Comments Sex Female Smoking Status No Information Chief Complaint And Reason For Visit No Information History Of Present Illness Encounter Date Complaint History Of Prese nt Illness No Information Instructions Date Instruction Additional Infor mation No Information Assessments Type Assessment Date No Information
--- NOTE | 2024-08-05 23:09 | ED_ITS ---
HPI - Extremity Injury (Lower) General Chief Complaint: Extremity Injury, Lower Stated Complaint: ankle and foot injury Source: patient Mode of arrival: ambulatory Limitations: no limitations History of Present Illness HPI Narrative: 29 years old slipped and twisted right foot, right ankle P hours prior to arrival to the emergency room, denies other injuries. Related Data Home Medications ?Medication ?Instructions ?Recorded ?Confirmed ?Last Taken ?Type No Home Medications 08/05/24 08/05/24 Unknown History Allergies Allergy/AdvReac Type Severity Reaction Status Date / Time bacitracin (From Neosporin Allergy Rash Verified 01/29/24 19:05 ([id number])) neomycin (From Neosporin Allergy Rash Verified 01/29/24 19:05 ([id number]-brr-gphii)) polymyxin B (From Neosporin Allergy Rash Verified 01/29/24 19:05 ([id number]-pfl-[id number])) Review of Systems Review of Systems: All systems reviewed & are unremarkable except as noted in HPI and below PMFSH Past Medical History Medical History Axillary abscess Contusion of fifth toe, left Smoker Morbid obesity with BMI of 40.0-44.9, adult PIH ( induced hypertension) Back pain Surgical History Surgical History History of tonsillectomy and adenoidectomy Family History Family History Daughter Trisomy 21 Hypothyroidism Sibling Epilepsy Mother Hypothyroidism Unknown Asthma Hypertension Cerebrovascular accident Social History Social History Smoking packs per day: 0.5 Smoking cigarettes per day: 10.0 Years smoked: 5 Smoking pack-years: 2.50 Smoking status: Current every day smoker Tobacco type: cigarettes Second hand tobacco smoke exposure: Yes Alcohol intake: current Substance use: never Living arrangements: with family Additional living arrangements comments: HUSB & 2 CHILDREN Occupation/Education: occupation 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 Gender identity (if verbalized by the patient): Female Sexual Orientation (if Verbalized by the Patient): Straight or Heterosexual Spiritual care concerns: No Exam Narrative: General appearance: Well-developed, well-nourished Skin: Normal color Head: Normocephalic, nontraumatic Eyes: Clear conjunctiva ENT: Oropharynx normal, ears normal, nose normal Neck: Supple, nontender Chest and respiratory: Airway patent, no respiratory distress, no accessory muscle use Heart: Regular rate/rhythm Abdomen: Soft, nontender, no organomegaly, quiet bowel sounds Vascular: Normal peripheral pulses, normal capillary refill. Musculoskeletal: Diffuse tenderness right ankle laterally, right foot laterally and dorsally, no deformity, no bruises, no swelling Neurologic: Alert and oriented ?3, CASHIER OR CHECKER STOCK CLERK is normal as tested, no gross motor deficit Course Vital Signs Vital signs: Vital Signs Temperature 36.3 C L 08/05/24 22:55 Pulse Rate 89 08/05/24 22:55 Respiratory Rate 18 08/05/24 22:55 Blood Pressure 140/69 08/05/24 22:55 Pulse Oximetry 99 08/05/24 22:55 Oxygen Delivery Room Air 08/05/24 22:55 Temperature 36.3 C L 08/05/24 22:55 Pulse Rate 89 08/05/24 22:55 Respiratory Rate 18 08/05/24 22:55 Blood Pressure 140/69 08/05/24 22:55 Pulse Oximetry 99 08/05/24 22:55 Oxygen Delivery Room Air 08/05/24 22:55 MDM - Extremity Injury (Lower) MDM Narrative Medical decision making narrative: patient slipped and twisted right foot and right ankle Differential diagnosis includes sprain/ strain versus fracture X-ray of the right foot and ankle showed no acute osseous abnormality Discharged with sprain/ strain of the right ankle and foot Imaging Data Radiologist's impression: Impressions Foot X-Ray 08/05/24 23:19 IMPRESSION: No acute fracture or dislocation Ankle X-Ray 08/05/24 23:21 IMPRESSION: No acute fracture as detailed above. Critical Care Time Critical Care Time Critical Care Time: No Discharge Plan Discharge Clinical Impression: Ankle sprain and strain, Foot sprain Patient Disposition: Home, Self-Care Condition: Stable Instructions: Ankle Sprain (DC), Foot Sprain (ED) Additional Instructions: Return if symptoms are worsening , call your family physician for appointment, take Tylenol , ibuprofen as as needed for aches and pain, continue home medications., keep right foot elevated Use home walking boot Patient Language: Irish Prescriptions: No Action No Home Medications Follow-up/Referrals: Case,ESEQUIEL George [Primary Care Provider] -
[2024-08-05 23:34] VITALS: BP 136/87; PULSE 85; RESP 18; O2SAT 99
== END 2024-08-05 23:34 | disposition home or self-care (01) ==
PROVIDERS: Emergency Provider Emergency Medicine; PCP Physician Assistant
DX: S93.401A Sprain of unspecified ligament of right ankle, initial encounter (principal); S96.911A Strain of unspecified muscle and tendon at ankle and foot level, right foot, initial encounter; S93.601A Unspecified sprain of right foot, initial encounter; W01.0XXA Fall on same level from slipping, tripping and stumbling without subsequent striking against object, initial encounter; F17.210 Nicotine dependence, cigarettes, uncomplicated
CPT/HCPCS: 73610; 73630; 99283

== ENCOUNTER 2024-10-22 08:13 | Emergency (ER) | payer OTHER, SELFPAY ==
[2024-10-22 08:15] VITALS: BP 147/93; PULSE 99; RESP 18; TEMP 36.9; O2SAT 97
--- NOTE | 2024-10-22 08:17 | ED.GENADULT ---
HPI - General Adult General Chief complaint: Unspecified Stated complaint: stung by a wasp Time Seen by Provider: 10/22/24 08:16 Source: patient Mode of arrival: ambulatory Limitations: no limitations History of Present Illness HPI narrative: 29-year-old white female was stung by wasps prior to coming to emergency room in right knee has little bit of swelling and redness in that area does not really hurt she has has. She is worried because she got stocking in the face once before and they told her she was allergic to wasps. She is not having problems with nausea vomiting swelling difficulty swallowing breathing wheezing shortness of breath or any other complaints. In the past when she was stung by wasp near her right eye is her face is eyes swelled in that area they gave her some Benadryl but she had no other systemic symptoms at that time. Related Data Home Medications ?Medication ?Instructions ?Recorded ?Confirmed ?Last Taken ?Type No Home Medications 08/05/24 08/05/24 Unknown History Allergies Allergy/AdvReac Type Severity Reaction Status Date / Time bacitracin (From Neosporin Allergy Rash Verified 10/22/24 08:15 ([id number])) neomycin (From Neosporin Allergy Rash Verified 10/22/24 08:15 ([id number]-aym-[id number])) polymyxin B (From Neosporin Allergy Rash Verified 10/22/24 08:15 ([id number]-[id number])) Review of Systems Review of Systems: All systems reviewed & are unremarkable except as noted in HPI and below PMFSH Past Medical History Medical History Axillary abscess Contusion of fifth toe, left Smoker Morbid obesity with BMI of 40.0-44.9, adult PIH ( induced hypertension) Back pain Surgical History Surgical History History of tonsillectomy and adenoidectomy Family History Family History Daughter Trisomy 21 Hypothyroidism Sibling Epilepsy Mother Hypothyroidism Unknown Asthma Hypertension Cerebrovascular accident Social History Social History Smoking packs per day: 0.5 Smoking cigarettes per day: 10.0 Years smoked: 5 Smoking pack-years: 2.50 Smoking status: Current every day smoker Tobacco type: cigarettes Second hand tobacco smoke exposure: Yes Alcohol intake: current Substance use: never Living arrangements: with family Additional living arrangements comments: HUSB & 2 CHILDREN 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 Head normocephalic, atraumatic.? Eyes conjunctiva pink sclera nonicteric.? Extraocular movements are intact.? Ears externally normal.? TMs are normal. ?Oropharynx is clear with moist mucous membranes without exudates.? Neck is supple nontender no lymphadenopathy.? Back is nontender.? Lungs are clear.? Heart is regular rate and rhythm without murmurs gallops or rubs.? Chest wall nontender. Abdomen is soft and nontender no hepatosplenomegaly or masses no CVA tenderness no abdominal bruits.? Extremities : She has a small red macular area on her her right knee consistent with a wasp sting with minimal swelling. Otherwise there is no cyanosis clubbing or edema.? Skin is warm and dry without rashes or lesions.? Neurological patient is alert and oriented x4.? Motor and sensory grossly intact.? Gait is normal. Course Vital Signs Vital signs: Vital Signs Temperature 36.9 C 10/22/24 08:15 Pulse Rate 99 10/22/24 08:15 Respiratory Rate 18 10/22/24 08:15 Blood Pressure 147/93 H 10/22/24 08:15 Pulse Oximetry 97 10/22/24 08:15 Oxygen Delivery Room Air 10/22/24 08:15 Temperature 36.9 C 10/22/24 08:35 Pulse Rate 99 10/22/24 08:35 Respiratory Rate 18 10/22/24 08:35 Blood Pressure 147/93 H 10/22/24 08:35 Pulse Oximetry 97 10/22/24 08:35 Oxygen Delivery Room Air 10/22/24 08:35 Medical Decision Making MDM Narrative Medical decision making narrative: Patient was placed in Room # 1 History and physical was performed. Independent Historian: patient External Source Review: Differential Dx includes but not limited to: anaphylactic shock local reaction cellulitis Medications were Reviewed: Independently Interpreted by me: Brien treatment, ED course: Social Situation Impacting Patients Care: Shared decision Making: evaluation was discussed all questions were asked and answered and patient agreed with the plan. She take Tylenol as needed use ice packs. Discussed with Dr. HOLT DIAGNOSIS: Wasp sting to the right knee local reaction only DISPOSITION: discharge home CONDITION AT DISCHARGE: stable Vital Signs Vital Signs: Vital Signs Temperature 36.9 C 10/22/24 08:15 Pulse Rate 99 10/22/24 08:15 Respiratory Rate 18 10/22/24 08:15 Blood Pressure 147/93 H 10/22/24 08:15 Pulse Oximetry 97 10/22/24 08:15 Oxygen Delivery Room Air 10/22/24 08:15 Temperature 36.9 C 10/22/24 08:35 Pulse Rate 99 10/22/24 08:35 Respiratory Rate 18 10/22/24 08:35 Blood Pressure 147/93 H 10/22/24 08:35 Pulse Oximetry 97 10/22/24 08:35 Oxygen Delivery Room Air 10/22/24 08:35 Discharge Plan Discharge Clinical Impression: Sting, wasp Qualifiers: Encounter type: initial encounter Injury intent: accidental or unintentional Qualified Code(s): T63.461A - Toxic effect of venom of wasps, accidental (unintentional), initial encounter Patient Disposition: Home Condition: Stable Additional Instructions: take Tylenol as needed for pain. Ice packs as needed as well. Return if you get worse or develops any new symptoms or any signs of infection. Patient Language: Upper Sorbian Prescriptions: No Action No Home Medications Follow-up/Referrals: Case,ESEQUIEL George [Primary Care Provider] - Stand Alone Forms: Work/School Release IP Time of Disposition: :
--- OUTSIDE RECORDS SUMMARY | 2024-10-22 08:19 | XMS_ITS | Continuity of Care Document ---
Author Organization [facility] Address [address] [place] [address] Phone Care Team Providers Care Slater Apprentice Name Role Phone Unavailable Unavailable Unavailable Advance Directives Directive Yes / No Effective Date File Name No Information Encounters Encounter Description Practice Location Reason(s) For Visit Diagnoses Date Provider Providers Copied on Encounter [facility], [address] [facility], [place], [place], [id number], [place] tel:[phone] [facility] IN[facility]IENT No Information No Information Referring Provider: SALVADOR Garcia, [address], [place], [address]. tel:[phone] Family History Family Member Type Diagnosis Age At Onset No Information Payers Payer name Insurance type Covered democrat ID Authormarya matt(s) [facility] INDEMNITY [id number] Social History Type Description Quantity Date Captured Comments Sex Female Smoking Status No Information Chief Complaint And Reason For Visit No Information History Of Present Illness Encounter Date Complaint History Of Prese nt Illness No Information Instructions Date Instruction Additional Infor mation No Information Assessments Type Assessment Date No Information
--- OUTSIDE RECORDS SUMMARY | 2024-10-22 08:19 | XMS_ITS | Continuity of Care Document ---
Author Organization [facility] Address [address] [place] [address] Phone Care Team Providers Care Airport Attendant Name Role Phone Bronson Bautista MD Unavailable Unavailable Allergies, Adverse Reactions, Alerts Substance Reaction Status Criticality No Known Allergies Active No Inform ation Procedures Procedure Date OFFICE/OUTPATIENT VISIT, [facility] OFFICE/OUTPATIENT VISIT, [facility] Advance Directives Directive Yes / No Effective Date File Name No Information Encounters Encounter Description Practice Location Reason(s) For Visit Diagnoses Date Provider Providers Copied on Encounter [facility], [address] [place] [address], [facility], tel:[phone] [facility] No Information 7 Lily Dobson. [address] [place] [address], [facility], . tel:[phone] OFFICE/OUTPAT IENT VISIT, [facility], [address] [place] [address], [facility], tel:[phone] [place] Cold symptoms (chief complaint) Acute upper respiratory infection, unspecified 6 No Information OFFICE/OUTPAT IENT VISIT, [facility], [address] [place] [address], [facility], tel:[phone] [place] ELBOW INJURY (chief complaint) Pain in left elbow 5 No Information Family History Family Member Type Diagnosis Age At Onset No Information Payers Payer name Insurance type Covered alliance party ID Authoriza tion(s) [facility] [id number] Social History Type Description Quantity Date Captured [...]
[2024-10-22 08:35] VITALS: BP 147/93; PULSE 99; RESP 18; TEMP 36.9; O2SAT 97
== END 2024-10-22 08:35 | disposition home or self-care (01) ==
LOC: CHSED 08:30
PROVIDERS: Emergency Provider Emergency Medicine; PCP Physician Assistant
DX: T63.461A Toxic effect of venom of wasps, accidental (unintentional), initial encounter (principal); F17.210 Nicotine dependence, cigarettes, uncomplicated
CPT/HCPCS: 99281

== ENCOUNTER 2025-03-17 11:11 | Outpatient (CLI) | payer BC, SELFPAY ==
--- OUTSIDE RECORDS SUMMARY | 2025-03-17 12:03 | XMS_ITS | Data Portability ---
Author Organization [facility] Address [address] [place] [address] Care Team Providers Care Window Assembler Name Role Phone COLBY PALACIOS Primary Care Provider [phone] Assessment No assessment recorded. Plan of Treatment Reminders Order Date Submit Date Provider Last Modified By Organization Details Last Modified Time Details Appointments None recorded. Lab None recorded. Referral None recorded. Procedures None recorded. Surgeries laparoscopi c tubal ligation with fulguration of oviducts (SURG) 2020 022 [email or web address] [facility], [address], [place], [address], 2 22:43:54 Imaging None recorded. Medication Orders None recorded. Patient TargetsNo targets recorded. Patient InstructionsNo instructions recorded. Reason for Referral None Reported. Results Created Date Observation Date Name Description Value Unit Range Abnormal Flag Note LastModifiedBy Organization Detail LastModifiedTime Result Notes None recorded. Problems Name Problem SNOMED Code Status Onset Date Resolution Date Notes Provider Name and Address Organization Details Recorded Time Placenta circumva llata 9089647 Completed growth u/s Pearl Bensonizzle null, [facility] 0 17:23:47 Mild pre-ecla mpsia 79849128 Completed h/o- ASA Kellen Krishnan hl null, [facility] 1 15:02:36 Family history of complete trisomy 21 syndrome 202309073 Completed Kellen Krishnan hl null, [facility] 1 15:02:36 Obesity 838491577 Completed Inform at 10/06 visit will need NSTs! Kellen salomon null, [facility] 1 15:02:36 Subchori onic hematoma 276859398 Completed x2 stilled noted on 09/10 u/s - no bleeding Kellen salomon null, [facility] 1 15:02:36 Placenta circumva llata 5026295 Completed serial growth u/s Kellen Krishnan hl null, [facility] 1 15:02:36 Female steriliz ation Completed 6 weeks post - to have private insuranc e at that time Kellen salomon null, [facility] 1 15:02:36 Venous abernathy 467765292 Completed 01/28 multiple Kellen salomon null, [facility] 1 15:02:36 Prematur e delivery 540131805 Completed 32 wk. Kellen Krishnan hl null, [facility] 1 15:02:36 Family history of complete trisomy 21 syndrome 466747212 Completed NIPT - nl Pearl Yeung [facility], [facility] 0 17:23:47 Past pregnanc y history of pre-ecla mpsia 94133334833 9100 Completed Severe - delivere d at 33 wks., baby asa Pearl Yeung [facility], [facility] 0 17:23:47 Family history of autism 400909352 Completed Pearl Gamal [facility], [facility] 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 1 12:43:05 Pregnanc y 28520488 Completed 201904/15/2020 Kellen Krishnan hl null, [facility] 1 15:02:41 Pregnanc y 20518308 Completed 202003/19/2021 Kellen Krishnan hl null, [facility] 1 15:02:41 Pregnanc y-induce d hyperten ivan 89797674 Completed 2020 delivery 37 weeks Kellen Krishnan hl null, [facility] 1 15:02:36 Problem Notes None recorded. Procedures Surgical History Date Name Laterality Status Provider Name and Address Organization Details Recorded Time 06/01/19 22 Tubal Ligation completed Virgen Ordaz [facility] 06/07/2021 14:54:04 10/07/19 21 Date of Last Pap Smear completed Mariela Price [facility] 04/07/2021 12:40:22 04/07/20 18 colonoscopy completed Ashlee Bedoya [facility] 08/23/2019 18:15:53 05/08/19 14 tonsilectomy/ad enoids completed Ashlee Bedoya [facility] 08/23/2019 18:15:27 Imaging Results None recorded. Procedure Notes None recorded. Medical Equipment None Reported. Allergies No known drug allergies Medications Name Sig Start Date Stop Date Status Note LastModified by Organization Details LastModified Time Augmentin 875 mg-125 mg tablet Take 1 tablet every 12 hours by oral route for 7 days. 09/19 completed Not Available Not Available Not Available azithromyci n 250 mg tablet TAKE 2 TABLETS BY MOUTH TODAY, THEN TAKE 1 TABLET DAILY FOR 4 DAYS 09/10 completed Not Available Not Available Not Available hydrocodone 5 mg-acetamin ophen 325 mg tablet Take 1 tablet every 6 hours by oral route as needed. 06/07 completed Not Available Not Available Not Available hydrocortis one acetate 25 mg rectal suppository INSERT 1 SUPPOSITO RY TWICE A DAY RECTALLY FOR 14 DAYS. 04/07 completed Not Available Not Available Not Available Flagyl 500 mg tablet Take 1 tablet every 12 hours by oral route with meals for 7 days. 09/19 completed Not Available Not Available Not Available cephalexin 500 mg capsule Take 1 capsule twice a day by oral route for 7 days. 10/02 completed Not Available Not Available Not Available ibuprofen 600 mg tablet 03/18 completed Not Available Not Available Not Available 03/18 completed Not Available Not Available Not Available Baby Aspirin 03/18 completed Not Available Not Available Not Available butalbital- acetaminoph en-caffeine 50 mg-300 mg-40 mg capsule Take 1 capsule every 4-6 hours by oral route as needed. 03/18 completed Not Available Not Available Not Available + DHA 04/21 completed Not Available Not Available Not Available Vitals Date Recorded Body height Body mass index (BMI) Body weight Systolic And Diastolic Provider Name and Address Organization Details Last Updated DateTime 05/27/2021 175.26 cm 41.6 kg/m2 990830.05 g 126/87 mm[Hg] Letty Garrett [facility] 05/27/2021 09:38:56 Date Recorded Body height Body mass index (BMI) Body weight Systolic And Diastolic Provider Name and Address Organization Details Last Updated DateTime 06/07/2021 175.26 cm 41.6 kg/m2 952175.05 g 116/80 mm[Hg] Virgen [facility] 06/07/2021 16:47:38 Date Recorded Body height Body mass index (BMI) Body weight Systolic And Diastolic Provider Name and Address Organization Details Last Updated DateTime 06/08/2021 175.26 cm 41.3 kg/m2 854931.86 g 132/84 mm[Hg] Virgen [facility] 06/08/2021 09:33:38 Date Recorded Body height Body mass index (BMI) Body weight Systolic And Diastolic Provider Name and Address Organization Details Last Updated DateTime 05/03/2021 175.26 cm 41.2 kg/m2 029231.27 g 123/83 mm[Hg] Mariela Junioran [facility] 05/03/2021 17:13:54 Social History Question Answer Notes LastModified by [email or web address] Details LastModified Time Tobacco Smoking Status Former Smoker Ashlee de loen, [facility] 08/30/2019 12:41:14 If You Are , What Was Your Level Of Alcohol Consumption Prior To ? Occasional [email or web address] Information not available 08/30/2019 Are You Blind Or Do You Have Difficulty Seeing? No [email or web address] Information not available 03/04/2021 Are You Deaf Or Do You Have Serious Difficulty Hearing? No Information not available 03/04/2021 What Type Of Diet Are You Following? REGULAR [email or web address] Information not available 03/04/2021 What Was The Date Of Your Most Recent Tobacco Screening? 03/04/2021 [email or web address] Information not available 03/04/2021 How Much Tobacco Do You Smoke? No [email or web address] Information not available 01/30/2020 Smoking Pre- Yes Information not available 08/30/2019 Sex: Unknown Functional Status Question Answer Note LastModified by [email or web address] Details LastModified Time What is your level of alcohol consumption? Occasional [email or web address] Information not available 08/30/2019 Do you or have you ever used smokeless tobacco? Never used smokeless tobacco [email or web address] Information not available 01/30/2020 Are you able to walk independently without assistance or assistive devices? YESWOREST [email or web address] Information not available 03/04/2021 Do you or have you ever used e-cigarettes or vape? Never used electronic cigarettes [email or web address] Information not available 01/30/2020 What is your exercise level? Occasional [email or web address] Information not available 08/30/2019 Mental Status None recorded. Family History Relationship Description Onset Age of this Age Resolved Age Notes LastModified by Organization Details LastModified Time Mother Hypercholest erolemia [email or web address] Not available 08/22 18:09:32 Mother Asthma [email or web address] Not available 08/23/2019 18:09:42 Mother Hypertensive disorder [email or web address] Not available 08/22 18:10:13 Mother Disorder of thyroid gland [email or web address] Not available 08/22 18:10:42 Maternal Grandmother Disorder of thyroid gland [email or web address] Not available 08/22 18:10:42 Daughter Disorder of thyroid gland Not available 08/22 18:10:42 Daughter Heart disease [email or web address] Not available 08/22 18:10:54 Daughter Trisomy X syndrome Not available 08/22 18:11:13 Daughter Asthma [email or web address] Not availab le 08/23/2019 18:11:30 Brother Asthma [email or web address] Not availabl e 08/23/2019 18:12:05 Brother Seizure disorder [email or web address] Not available 08/22 18:12:33 Medical History Condition Response History of STI Y Other Y Pre-Eclampsia Y Hypertension Y GI Problems Y Gynecological History Statement/Question Response Abnormal Pap N On BCP's at Conception? N STIs/STDs Y Was last menstrual period normal N HPV Vaccine N Current Control Method Tubal Ligat ion Are cycles usually normal N Sexually Active? Y Menses Monthly N Date of Last Pap Smear 10/06/2020 Sexual Problems? N LMP Unknown Obstetrics History GPAL:G 3 P 2 1 0 3 Type Value Full Term 2 Premature 1 Living 3 Total 3 Past Encounters Encounter ID Performer Location Encounter Start Date Encounter Closed Date Diagnosis/Indication Diagnosis SNOMED-CT Code Diagnosis ICD10 Code Diagnosis IMO Codes Diagnosis Note [id number] Jimena Quesada [facility] [address],[place] [address] 08/23/2019 14:44:12 08/23/2019 16:46:35 Gynecologic examination 12287857 Z01.419 [id number] Jimena Quesada [facility] [address],[place] [address] 08/30/2019 11:54:32 08/30/2019 15:08:38 Abscess of skin and/or subcutaneous tissue 95998576 L02.91 [id number] Ross Verdugo MD [place] [address],[place] [address] 08/30/2019 11:57:16 08/30/2019 12:48:42 Uncertain viability of 405477034 O36.80X9 [id number] Ross Verdugo MD [place] [address],[place] [address] 09/20/2019 09:51:21 09/20/2019 11:37:01 Routine care 553589302 Z34.81 [id number] Ross Verdugo MD [place] [address],[place] [address] 10/15/2019 09:49:19 09/08/2020 10:13:57 [id number] Jimena Quesada [facility] [address],[place] [address] 10/15/2019 10:25:05 10/15/2019 17:01:16 Routine care 582445887 Z34.92 [id number] Ross Verdugo MD [place] [address] [place] [address] 11/14/2019 10:08:58 11/14/2019 13:15:24 screening for malformation 425986761 Z36.3 [id number] Dalila Johnson [facility] [address],[place] [address] 11/14/2019 10:09:37 11/14/2019 13:24:00 Routine care 772848394 Z34.92 [id number] Ross Verdugo MD [place] [address],[place] [address] 12/12/2019 10:12:22 12/12/2019 10:44:39 Placenta circumvallata 8549132 O43.119 Z3A.24 [id number] MD Ke Fowler [address],[place] [address] 12/12/2019 10:13:23 12/12/2019 11:18:03 Routine care 807075250 Z34.81 [id number] Ross Verdugo MD [place] [address],[place] [address] 01/02/2020 10:27:47 01/02/2020 11:12:36 Routine care 568492802 Z34.81 [id number] Ross Verdugo MD [place] [address],[place] [address] 01/09/2020 09:38:58 01/09/2020 10:10:23 Placenta circumvallata 4140321 O43.113 Z3A.28 [id number] Ross Verdugo MD [place] [address],[place] [address] 01/15/2020 16:36:20 01/15/2020 17:20:58 Routine care 039146462 Z34.81 [id number] [facility] [address],[place] [address] 01/30/2020 16:42:57 01/31/2020 17:23:55 Routine care 035932957 Z34.92 [id number] Ross Verdugo MD [place] [address],[place] [address] 02/13/2020 09:20:44 02/13/2020 10:05:16 Placenta circumvallata 0034968 O43.113 Z3A.33 [id number] [facility] [address],[place] [address] 02/13/2020 09:21:12 02/13/2020 10:15:33 Routine care 027960986 Z34.92 [id number] Dalila Johnson CNM [place] [address],[place] [address] 02/27/2020 15:33:51 02/27/2020 16:25:00 Routine care 807586002 Z34.92 [id number] Dalila Johnson CNM [place] [address],[place] [address] 03/05/2020 14:51:00 03/06/2020 12:26:52 Routine care 710221300 Z34.92 [id number] Ross Verdugo MD [place] [address] [place] [address] 03/12/2020 11:24:42 03/12/2020 16:07:26 AND/OR placental disorder affecting management of mother 96687696 O43.93 Z3A.37 [id number] [place] [address] [address] 03/12/2020 11:25:46 03/16/2020 16:08:39 [id number] Dalila Johnson CNM [address] [address] 03/17/2020 09:55:37 03/19/2020 14:58:59 Routine care 241320122 Z34.92 [id number] Dalila Johnson CNM [place] [address] [place] [address] 05/13/2020 12:37:21 05/14/2020 17:04:06 state 19853791 Z39.2 Continue to watch for signs/symp toms of post depression . Return one year from last pap smear for a well woman exam. Pt will call to get most recent pap. Pt thinks it was within the last year at Dr Penaloza's office. Considerin g soon. Strongly encouraged vitamins with dha and folic acid atleast 3 months prior to conception . Patient received above instructio ns, and questions have been answered. If you have any questions please call or respond to this email. Patient was made aware of the patient portal and may obtain a paper copy of today's plan if desired [id number] Dalila Johnson CNM [place] [address],[place] [address] 08/20/2020 09:57:15 08/20/2020 11:12:40 test positive 110184327 Z32.01 Risk factors addressed: Tobacco Cessation, Safe Sexual Practices, environmen alison, work hazards, travel restrictio ns, seat belt use. Eat a health well balanced diet, avoid alcohol, tobacco, and street drugs. Engage in daily low impact exercise, avoid temperatur e extremes, and cat, rodent, and bird feces. Avoid travel to areas where zika virus is a concern. Offered cf/sma/nip t. Desires NIPT. Handouts given and discussed with patient. Childbirth classes recommende d. Baby aspirin daily. New OB sheet given. If previous , counseling . Pt verbalizes that she understand s the importance of above instructio ns. All questions were answered. Patient reminded to have annual well woman examinatio n and address [facility] . [id number] Ross Verdugo MD [place] [address],[place] [address] 08/20/2020 09:59:06 08/20/2020 10:34:01 screening 863713418 Z36.87 [id number] Ross Verdugo MD [place] [address],[place] [address] 09/10/2020 11:11:13 09/10/2020 11:56:17 screening 412320352 Z36.89 [id number] Ross Verdugo MD [place] [address],[place] [address] 09/10/2020 11:20:51 09/10/2020 12:37:11 Routine care 263659404 Z34.81 [id number] Dalila Johnson CNM [place] [address],[place] [address] 10/06/2020 13:37:50 10/06/2020 14:53:12 Routine care 628608781 Z34.92 [id number] Dalila Johnson [facility] [address],[place] [address] 11/03/2020 13:51:26 11/03/2020 15:35:09 Routine care 123153890 Z34.92 [id number] Ross Verdugo MD [place] [address],[place] [address] 11/03/2020 13:47:47 11/03/2020 14:56:33 screening for malformation 908482572 Z36.3 [id number] Dalila Johnson [facility] [address],[place] [address] 12/02/2020 10:03:30 12/02/2020 10:57:59 Routine care 052337921 Z34.92 [id number] Ross Verdugo MD [place] [address],[place] [address] 12/02/2020 10:02:45 12/02/2020 10:37:15 Placenta circumvallata 1677345 O43.113 Z3A.22 [id number] Dalila Johnson [facility] [address],[place] [address] 12/31/2020 14:22:10 12/31/2020 16:50:05 Routine care 016688620 Z34.92 [id number] Ross Verdugo MD [place] [address],[place] [address] 12/31/2020 14:19:40 12/31/2020 16:34:22 AND/OR placental disorder affecting management of mother 87687389 O43.92 Z3A.27 [id number] MD Ke Fowler [address],[place] [address] 01/14/2021 15:15:47 01/14/2021 17:22:25 Blood pressure above reference range 22946009 R03.0 [id number] MD Ke Fowler [address],[place] [address] 01/19/2021 12:28:03 01/19/2021 13:27:14 Routine care 675871122 Z34.81 [id number] Ross Verdugo MD [place] [address],[place] [address] 01/28/2021 10:14:48 01/28/2021 12:14:36 Breech presentation 4306848 O32.1XX0 O43.113 Z3A.33 [id number] Ross Verdugo MD [place] [address],[place] [address] 02/01/2021 10:15:05 02/01/2021 10:29:03 -induced hypertension 34373758 O13.9 Pt walked into the office wanting BP check. Pt states last night she [...] try Fioricet for DALAL. Rx sent. Pt informed and will f/u in office on 02/04. Pt aware of probable GHTN dx and needing NSTs sooner. Gave precaution s. Pt verbalized understand ing. WENDY petersen [id number] Ross Verdugo MD [place] [address],[place] [address] 02/04/2021 11:12:17 02/04/2021 12:29:13 Maternal obesity complicating , childbirth and the puerperium, antepartum 8902062845 07 O99.213 [id number] MD Ke Fowler [address],[place] [address] 02/04/2021 11:12:36 02/04/2021 14:06:33 Routine care 764747698 Z34.81 [id number] Ross Verdugo MD [place] [address],[place] [address] 02/08/2021 12:10:23 02/08/2021 13:18:50 -induced hypertension 22184073 O13.9 Pt walked into the office wanting BP check. Pt states last night she [...] try Fioricet for DALAL. Rx sent. Pt informed and will f/u in office on 02/04. Pt aware of probable GHTN dx and needing NSTs sooner. Gave precaution s. Pt verbalized understand ing. WENDY petersen [id number] Ross Verdugo MD [place] [address],[place] [address] 02/11/2021 11:15:35 02/11/2021 12:28:12 -induced hypertension 86186530 O13.9 Pt walked into the office wanting BP check. Pt states last night she [...] try Fioricet for DALAL. Rx sent. Pt informed and will f/u in office on 02/04. Pt aware of probable GHTN dx and needing NSTs sooner. Gave precaution s. [place] [id number] Ross Verdugo MD [place] [address],[place] [address] 02/11/2021 11:16:43 02/11/2021 12:54:03 Routine care 223647444 Z34.81 [id number] Ross Verdugo MD [place] [address],[place] [address] 02/15/2021 12:01:10 02/15/2021 13:01:39 -induced hypertension 75148329 O13.9 Pt walked into the office wanting BP check. Pt states last night she [...] try Fioricet for DALAL. Rx sent. Pt informed and will f/u in office on 02/04. Pt aware of probable GHTN dx and needing NSTs sooner. Gave precaution s. Pt verbalized understand ing. WENDY petersen [id number] Dalila Johnson [facility] [address],[facility] [place] [address] 02/18/2021 12:14:40 02/19/2021 14:05:02 Routine care 805681014 Z34.92 [id number] Ross Verdugo MD [place] [address],[place] [address] 02/18/2021 12:15:00 02/18/2021 13:09:05 -induced hypertension 68276324 O13.9 Pt walked into the office wanting BP check. Pt states last night she [...] try Fioricet for DALAL. Rx sent. Pt informed and will f/u in office on 02/04. Pt aware of probable GHTN dx and needing NSTs sooner. Gave precaution s. [place] [id number] Ross Verdugo MD [place] [address],[place] [address] 02/22/2021 10:53:22 02/22/2021 13:22:27 -induced hypertension 29771052 O13.9 Pt walked into the office wanting BP check. Pt states last night she [...] try Fioricet for DALAL. Rx sent. Pt informed and will f/u in office on 02/04. Pt aware of probable GHTN dx and needing NSTs sooner. Gave precaution s. Pt verbalized understand ing. WENDY petersen [id number] Dalila Johnson [facility] [address],[place] [address] 02/25/2021 10:11:09 02/25/2021 11:51:08 Routine care 362856279 Z34.92 [id number] Ross Verdugo MD [place] [address],[place] [address] 02/25/2021 10:10:23 02/25/2021 10:52:09 -induced hypertension 48587328 O13.9 Pt walked into the office wanting BP check. Pt states last night she [...] try Fioricet for DALAL. Rx sent. Pt informed and will f/u in office on 02/04. Pt aware of probable GHTN dx and needing NSTs sooner. Gave precaution s. Pt verbalized understand ing. WENDY petersen [id number] Ross Verdugo MD [place] [address],[place] [address] 02/25/2021 10:10:48 02/25/2021 11:48:09 Maternal obesity complicating , childbirth and the puerperium, antepartum 1731353413 07 O99.213 Z3A.35 [id number] Ross Verdugo MD [place] [address],[place] [address] 03/01/2021 12:06:26 03/01/2021 13:01:20 -induced hypertension 19078738 O13.9 Pt walked into the office wanting BP check. Pt states last night she [...] try Fioricet for DALAL. Rx sent. Pt informed and will f/u in office on 02/04. Pt aware of probable GHTN dx and needing NSTs sooner. Gave precaution s. Pt verbalized understand ing. WENDY petersen [id number] Ross Verdugo MD [place] [address],[place] [address] 03/03/2021 14:51:01 03/03/2021 15:50:11 Reduced movement 941343059 O36.8199 [id number] Ross Verdugo MD [place] [address],[place] [address] 03/04/2021 11:20:09 03/04/2021 12:15:58 Routine care 549539185 Z34.81 [id number] Ross Verdugo MD [place] [address],[place] [address] 03/08/2021 12:18:05 03/08/2021 13:05:37 -induced hypertension 60111288 O13.9 Pt walked into the office wanting BP check. Pt states last night she [...] try Fioricet for DALAL. Rx sent. Pt informed and will f/u in office on 02/04. Pt aware of probable GHTN dx and needing NSTs sooner. Gave precaution s. Pt verbalized understand ing. WENDY petersen [id number] [facility] [address],[facility] [place] [address] 03/18/2021 12:27:49 03/18/2021 13:12:44 -induced hypertension 77869722 O13.9 Pt doing will. PIH precaution s given. Plan to return for routine post . External hemorrhoids 239 81011 K64.4 Pt desires RX for hemorrhoid s. She will notify us if any worsening of symptoms. [id number] [facility] [address],[place] [address] 05/03/2021 16:55:39 05/04/2021 17:41:34 state 77540262 Z39.2 Continue to watch for signs/symp toms of post depression . Return one year from last pap smear for a well woman exam. Patient received above instructio ns, and questions have been answered. If you have any questions please call or respond to this email. Patient was made aware of the patient portal and may obtain a paper copy of today's plan if desired Contracept ion care management 889658210 Z30.9 Female sterilization 608 79198 Z30.2 [id number] Ross Verdugo MD [place] [address] [address] 05/27/2021 09:33:34 05/27/2021 10:10:28 Female sterilization 00368470 Z30.2 this patient is a 26-year-ol d female presents for preoperati ve care. She desires female sterilizat ion. Agreed to perform laparoscop ic bilateral tubal ligation. She understand s the risks, benefits, and alternativ es. She has completed the informed consent process and is ready to proceed. [id number] Ross Verdugo MD [place] [address],[place] [address] 06/02/2021 10:01:09 06/02/2021 10:03:13 [id number] Ross Verdugo MD [place] [address],[place] [address] 06/07/2021 16:36:53 06/07/2021 20:07:33 [id number] Ross Verdugo MD [place] [address],[place] [address] 06/08/2021 09:26:56 06/09/2021 11:13:24 Postoperative care [id number] Z48.89 this patient is a 22 for old female presents for postop follow-up. She is 1 week postop from a tubal ligation. She is recovering normally. Her incisions are clean dry and intact. She will follow-up as needed. She has no complaints . Health Concerns Section Related Observation LastModified by Organization Detai ls LastModified Time None Recorded Concern Status LastModified by Organization Details LastModified Time None Recorded Advance Directives Directive None Recorded Payers Insurance Date Sequence Insurance Name Policy Number Policy Camargo Covered Member ID Camargo Member ID Guarantor Name 04/23/2021 1 [facility] [id number] Beatriz العلي Casey [id number] Beatrizyanick Peña 04/23/2021 1 [facility] - DOS PRIOR TO 2020 (MEDICAID REPLACEMENT - HMO) Beatriz Casey [id number] Beatrizyanick Peña 10/06/2020 SLIDING FEE SCHEDULE - DISCOUNT Beatrizyanick Peña 04/23/2021 2 [place] [facility] Beatrizavelino Peña [id number] Beatriz Peña 04/23/2021 2 [place] [facility] Beatriz Peña [id number] Beatriz Peña 06/08/2021 1 [facility] - DOS ON OR AFTER 20 (MEDICAID REPLACEMENT - HMO) Beatriz Peña [id number] Beatriz Peña Notes Date Note Type Note Provider Name and Address Organization Details Recorded Time 05/03/2021 text/html VisitReported by PatientHPIFor associated symptoms, patient reportsno abnormal bleeding,no vaginal discharge,no pelvic pain,laceration well healed,no constipation,no fecal incontinence,no dysuria,no urinary incontinence,no fever,no problems,no mastitis, andnormal mood. Dalila de leon [facility] 05/04/2021 16:31:45 05/27/2021 text/html This patient is a 26-year-old female who presents for preoperative care. She desires female sterilization. We have agreed to perform laparoscopic bilateral tubal ligation. The patient understands the procedure. The procedure was described to the patient in great detail. the patient also understands the risks. The risks were also explained in detail. She understands that injuries May occur during surgery. She understands these injuries can result in hospitalization, more surgery, and severe illness. She understands there is risk of hemorrhage and infection. Ross Verdugo MD [address], [place], [address], [facility] 05/27/2021 10:07:06 06/08/2021 text/html this patient is a 22 for old female presents for postop follow-up. She is 1 week postop from a tubal ligation. She is recovering normally. Her incisions are clean dry and intact. She will follow-up as needed. She has no complaints. Ross Verdugo MD [address], [place], [address], [facility] 06/08/2021 18:10:41 OBGyn Episode Ob Episode Information Episode Created Date Number of Fetuses Patient Bloodtype Patient rh Status Prepregnancy Weight lbs Domestic Partner Domestic Partner Phone Father Name Skidder Lever Operator Status 08/23/19 20 1 CLOSED Fetus Data First Name Last Name Admitted to NICU Weight (g) Sex Living Outcome Pediatric Complications Fetus ID Race Codes Race Delivery Type 1729.09 2704 F Prematur e 598 Vaginal Delivery Heath Calculation Initial Heath Date Initial Exam Date Initial Exam Provider Initial Ultrasound Date Last Menstrual Period Date Ultra Sound Weeks Gestation 0 Eighteen To Twenty Week Heath Update Ultra Sound Date Fundal Height At Umbil Quickening Date Ultra Sound Latest Weeks Gestation Final Heath Confirmed By Final Heath Confirmed Date Final Heath Date Ultra Sound Latest Days Gestation 0 0 Menstrual History Last Menstrual Date Menses Monthly On Bcp Conception Prior Menses Frequency Hcg Plus Date Menarche Onset Age Delivery Information Delivery Date Delivery Type Labor Anesthesia Weeks Gestation Incision Type Labor Labor Length Hrs Delivered By Post Complications Tubal Sterilization Discharge Date Comments 7 34 delivere d at [facility] baby had trisomy 21, heart disease, thyroid disease, and asthma/ baby 03/2019 IUGR with AEDF and mild preeclamp shruthi Discharge Information Feeding Method Contraceptive Method Maternal HG B and HCT Levels Ob Episode Information Episode Created Date Number of Fetuses Patient Bloodtype Patient rh Status Prepregnancy Weight lbs Domestic Partner Domestic Partner Phone Father Name Skidder Lever Operator Status 09/20/19 20 1 O Negative 261 CLOSED Fetus Data First Name Last Name Admitted to NICU Weight (g) Sex Living Outcome Pediatric Complications Fetus ID Race Codes Race Delivery Type 3260.19 25 M true Full Term 1475 Vaginal Delivery Problems Problem Notes this patient lost her child that was born prematurely. the was in the NICU for 2 months. The Infant had numerous respiratory issues. The infant had tracheotomy that she removed while she was sleeping and subsequently past. Problem Name Start Date End Date Resolution Snomed Code Not e Family history of complete trisomy 21 syndrome [id number] NIPT - nl Past history of pre-eclampsia [id number] Severe - delivered at 33 wks., baby asa Family history of autism [id number] Placenta circumvallata [id number] growth u/s Heath Calculation Initial Heath Date Initial Exam Date Initial Exam Provider Initial Ultrasound Date Last Menstrual Period Date Ultra Sound Weeks Gestation 03/29/2020 09/20/2019 08/13/2019 06/23/2019 6 Eighteen To Twenty Week Heath Update Ultra Sound Date Fundal Height At Umbil Quickening Date Ultra Sound Latest Weeks Gestation Final Heath Confirmed By Final Heath Confirmed Date Final Heath Date Ultra Sound Latest Days Gestation 0 [email or web address] 09/20/2019 03/29/20 20 0 Pre-rae Flowsheet Flowsheet Date 09/20/2019 Ocampo Score Blood Edema Fundus Height Fundus Units Glucose Ketones Leukocytes Nitrite Labor Signs Protein Cervic Dilation Cervic Effacement Cervic Station 12 Type Weight in lbs Pre/Post Dialysis Refused Weight 270.76085213646 BP Diastolic BP Location Tested BP Systolic BP Type 85 139 Fetus Heart Rate Present A 145 Fetus Movement Comments This patient is a 24-year-ol d 2 para 0-1-0-1 at 12 weeks gestation who presents for initial visit. She lost a 4-month-old baby with Down syndrome. This baby was delivered at 33 weeks for severe preeclampsia. She has a family history of autism. She is instructed to take 2 baby aspirin a day. She will return in 4 weeks. She had a normal NIPT. Flowsheet Date 10/15/2019 Ocampo Score Blood Edema Fundus Height Fundus Units Glucose Ketones Leukocytes Nitrite Labor Signs Protein Cervic Dilation Cervic Effacement Cervic Station Type Weight in lbs Pre/Post Dialysis Refused BP Diastolic BP Location Tested BP Systolic BP Type Fetus Heart Rate Present Fetus Movement Comments Flowsheet Date 10/15/2019 Ocampo Score Blood Edema Fundus Height Fundus Units Glucose Ketones Leukocytes Nitrite Labor Signs Protein Cervic Dilation Cervic Effacement Cervic Station neg trace trace Type Weight in lbs Pre/Post Dialysis Refused Weight 266.962241291214 BP Diastolic BP Location Tested BP Systolic BP Type 76 121 Fetus Heart Rate Present Fetus Movement A Yes Comments patient states that having s ome swelling in feet, gender reveal, male Lenin Combs, AFP today plan 4 week anatomy Flowsheet Date 11/14/2019 Ocampo Score Blood Edema Fundus Height Fundus Units Glucose Ketones Leukocytes Nitrite Labor Signs Protein Cervic Dilation Cervic Effacement Cervic Station Type Weight in lbs Pre/Post Dialysis Refused BP Diastolic BP Location Tested BP Systolic BP Type Fetus Heart Rate Present Fetus Movement Comments Flowsheet Date 11/14/2019 Ocampo Score Blood Edema Fundus Height Fundus Units Glucose Ketones Leukocytes Nitrite Labor Signs Protein Cervic Dilation Cervic Effacement Cervic Station 20 trace Type Weight in lbs Pre/Post Dialysis Refused Weight 267.634842885417 BP Diastolic BP Location Tested BP Systolic BP Type 77 L arm 124 sitting Fetus Heart Rate Present A 143 Fetus Movement A Yes Comments Pt doing well. Baseline yenifer alison today. Will await recommendations from Dr Verdugo. Flowsheet Date 12/12/2019 Ocampo Score Blood Edema Fundus Height Fundus Units Glucose Ketones Leukocytes Nitrite Labor Signs Protein Cervic Dilation Cervic Effacement Cervic Station Type Weight in lbs Pre/Post Dialysis Refused BP Diastolic BP Location Tested BP Systolic BP Type Fetus Heart Rate Present Fetus Movement Comments Flowsheet Date 12/12/2019 Ocampo Score Blood Edema Fundus Height Fundus Units Glucose Ketones Leukocytes Nitrite Labor Signs Protein Cervic Dilation Cervic Effacement Cervic Station 25 trace Type Weight in lbs Pre/Post Dialysis Refused Weight 274.970087145159 BP Diastolic BP Location Tested BP Systolic BP Type 78 128 Fetus Heart Rate Present A 145 Fetus Movement A Yes Comments Flowsheet Date 01/02/2020 Ocampo Score Blood Edema Fundus Height Fundus Units Glucose Ketones Leukocytes Nitrite Labor Signs Protein Cervic Dilation Cervic Effacement Cervic Station 28 Type Weight in lbs Pre/Post Dialysis Refused Weight 281.707267258315 BP Diastolic BP Location Tested BP Systolic BP Type 81 136 Fetus Heart Rate Present A 145 Fetus Movement A Yes Comments Flowsheet Date 01/09/2020 Ocampo Score Blood Edema Fundus Height Fundus Units Glucose Ketones Leukocytes Nitrite Labor Signs Protein Cervic Dilation Cervic Effacement Cervic Station Type Weight in lbs Pre/Post Dialysis Refused BP Diastolic BP Location Tested BP Systolic BP Type Fetus Heart Rate Present Fetus Movement Comments Flowsheet Date 01/15/2020 Ocampo Score Blood Edema Fundus Height Fundus Units Glucose Ketones Leukocytes Nitrite Labor Signs Protein Cervic Dilation Cervic Effacement Cervic Station 32 trace Type Weight in lbs Pre/Post Dialysis Refused Weight 283.006492798446 BP Diastolic BP Location Tested BP Systolic BP Type 73 R arm 123 sitting Fetus Heart Rate Present A 131 Fetus Movement A Yes Comments Flowsheet Date 01/30/2020 Ocampo Score Blood Edema Fundus Height Fundus Units Glucose Ketones Leukocytes Nitrite Labor Signs Protein Cervic Dilation Cervic Effacement Cervic Station neg trace 32 trace Type Weight in lbs Pre/Post Dialysis Refused Weight 284.489280712844 BP Diastolic BP Location Tested BP Systolic BP Type 70 117 Fetus Heart Rate Present A 133 Fetus Movement A Yes Comments Pt doing well. States she oc casionally see's stars. This is not uncommon for her and seems to happen after she has been sitting at her desk for a while then gets up. Denies h/a or e/p. BP has been normal. Discussed PIH precautions and precautions to help promote good blood flow. Pt verbalized understanding. Will check baseline PIH labs today. Flowsheet Date 02/13/2020 Ocampo Score Blood Edema Fundus Height Fundus Units Glucose Ketones Leukocytes Nitrite Labor Signs Protein Cervic Dilation Cervic Effacement Cervic Station Type Weight in lbs Pre/Post Dialysis Refused BP Diastolic BP Location Tested BP Systolic BP Type Fetus Heart Rate Present Fetus Movement Comments Flowsheet Date 02/13/2020 Ocampo Score Blood Edema Fundus Height Fundus Units Glucose Ketones Leukocytes Nitrite Labor Signs Protein Cervic Dilation Cervic Effacement Cervic Station trace 334 Type Weight in lbs Pre/Post Dialysis Refused Weight 283.163360827340 BP Diastolic BP Location Tested BP Systolic BP Type 75 R arm 116 sitting Fetus Heart Rate Present A 140 Fetus Movement A Yes Comments Pt will call to schedule pre admit. Pt will go this week for TDAP and Flu shot. Occasional contractions. PTL precautions discussed. Flowsheet Date 02/27/2020 Ocampo Score Blood Edema Fundus Height Fundus Units Glucose Ketones Leukocytes Nitrite Labor Signs Protein Cervic Dilation Cervic Effacement Cervic Station 37 trace Type Weight in lbs Pre/Post Dialysis Refused Weight 287.930036750778 BP Diastolic BP Location Tested BP Systolic BP Type 79 L arm 121 sitting Fetus Heart Rate Present A 136 Fetus Movement A Yes Comments Pt doing well. No s/s of pre -eclampsia. Labor precautions. GBS collected. Pre admission done. Flowsheet Date 03/05/2020 Ocampo Score Blood Edema Fundus Height Fundus Units Glucose Ketones Leukocytes Nitrite Labor Signs Protein Cervic Dilation Cervic Effacement Cervic Station 38 1cm 20% -3 Type Weight in lbs Pre/Post Dialysis Refused Weight 290.1813462634 BP Diastolic BP Location Tested BP Systolic BP Type 85 L arm 117 sitting Fetus Heart Rate Present A 149 Fetus Movement A Yes Comments Labor precautions discussed. Pt had lower back discomfort over the weekend which has resolved. Flowsheet Date 03/12/2020 Ocampo Score Blood Edema Fundus Height Fundus Units Glucose Ketones Leukocytes Nitrite Labor Signs Protein Cervic Dilation Cervic Effacement Cervic Station Type Weight in lbs Pre/Post Dialysis Refused BP Diastolic BP Location Tested BP Systolic BP Type Fetus Heart Rate Present Fetus Movement Comments Flowsheet Date 03/12/2020 Ocampo Score Blood Edema Fundus Height Fundus Units Glucose Ketones Leukocytes Nitrite Labor Signs Protein Cervic Dilation Cervic Effacement Cervic Station 39 trace 1cm 20% -3 Type Weight in lbs Pre/Post Dialysis Refused Weight 291.086833505223 BP Diastolic BP Location Tested BP Systolic BP Type 79 L arm 114 sitting Fetus Heart Rate Present A 140 Fetus Movement A Yes Comments Occasional contractions. Pos sibly leaking fluid on Monday. Pt sent to L&D for r/o rupture. Labor precautions. Flowsheet Date 03/17/2020 Ocampo Score Blood Edema Fundus Height Fundus Units Glucose Ketones Leukocytes Nitrite Labor Signs Protein Cervic Dilation Cervic Effacement Cervic Station 39 2cm 50% -3 Type Weight in lbs Pre/Post Dialysis Refused Weight 292.014946217028 BP Diastolic BP Location Tested BP Systolic BP Type 84 R wrist 124 sitting Fetus Heart Rate Present A 145 Fetus Movement A Yes Comments Pt desires elective inductio n. Monday is full. Will schedule for Monday. Labor precautions discussed. Menstrual History Last Menstrual Date Menses Monthly On Bcp Conception Prior Menses Frequency Hcg Plus Date Menarche Onset Age 0206/23/2019 Genetic Screening And Infection History Question Response Note Mental Retardation/Autism false Patient's Age Will Be 35 Yea rs Or Older At Estimated Date of Delivery false Thalassemia (Jamaican, Danish, Mediterranean, Or Background): MCV < 80 false Neural Tube Defect (Meningom yelocele, Spina Bifida, Or Anencephaly) false Congenital Heart Defect false Down Syndrome true Daughter Jn-Sachs (eg, Worship, Cajun, Ghanaian-Sri Lankan) f alse Yi Disease false Sickle Cell Disease Or Trait () false Hemophilia Or Other Blood Disorders false Muscular Dystrophy false Cystic Fibrosis false Jarrod's Chorea false Intellectual Disability/Autism true B rothers, sisters, parents If Yes, Was Person Tested For Fragile X? false Other Inherited Genetic Or Chromosomal Disorder false Maternal Metabolic Disorder (eg, Type 1 Diabetes, PKU) false Patient Or Baby's Father Had A Child With Defects Not Listed Above false Recurrent Loss, Or A Stillbirth false Medications (including Suppl ements, Vitamins, Herbs, OTC Drugs), Illicit/Recreational Drugs, Alcohol false If Yes, Agent(s) And Strength/Dosage false Any Other Genetic History false Live With Someone With TB Or Exposed To TB false Patient Or Partner Has History Of Genital Herpes false Rash Or Viral Illness Since Last Menstrual Perio d false History Of STD, Gonorrhea, C hlamydia, HPV, Syphilis false Other Infection History false History of HIV false History of Hepatitis false Prior GBS-infected child false Hemoglobinopathy Or Carrier false Other Structural Defect false Recent Travel History Outside of Country false Delivery Information Delivery Date Delivery Type Labor Anesthesia Weeks Gestation Incision Type Labor Labor Length Hrs Delivered By Post Complications Tubal Sterilization Discharge Date Comments 0 Regional-Ep idural 38.4 kpanyik Circumva l late placenta Discharge Information Feeding Method Contraceptive Method Maternal HG B and HCT Levels Ob Episode Information Episode Created Date Number of Fetuses Patient Bloodtype Patient rh Status Prepregnancy Weight lbs Domestic Partner Domestic Partner Phone Father Name Skidder Lever Operator Status 04/01/20 20 1 DELETED Heath Calculation Initial Heath Date Initial Exam Date Initial Exam Provider Initial Ultrasound Date Last Menstrual Period Date Ultra Sound Weeks Gestation 0 Eighteen To Twenty Week Heath Update Ultra Sound Date Fundal Height At Umbil Quickening Date Ultra Sound Latest Weeks Gestation Final Heath Confirmed By Final Heath Confirmed Date Final Heath Date Ultra Sound Latest Days Gestation 0 0 Menstrual History Last Menstrual Date Menses Monthly On Bcp Conception Prior Menses Frequency Hcg Plus Date Menarche Onset Age Delivery Information Delivery Date Delivery Type Labor Anesthesia Weeks Gestation Incision Type Labor Labor Length Hrs Delivered By Post Complications Tubal Sterilization Discharge Date Comments 0 38.4 Discharge Information Feeding Method Contraceptive Method Maternal HG B and HCT Levels Ob Episode Information Episode Created Date Number of Fetuses Patient Bloodtype Patient rh Status Prepregnancy Weight lbs Domestic Partner Domestic Partner Phone Father Name Skidder Lever Operator Status 09/11/19 21 1 O Negative 280 CLOSED Fetus Data First Name Last Name Admitted to NICU Weight (g) Sex Living Outcome Pediatric Complications Fetus ID Race Codes Race Delivery Type 3061.74 6 F true Full Term 9643 Vaginal Delivery Problems Problem Notes CERVIX NOT CHECKED, PER OFELIA ENT IS VERTEX ON ULTRASOUND RECENTLY. Problem Name Start Date End Date Resolution Snomed Code Not e Placenta circumvallata [id number] serial growth u/s Subchorionic hematoma 40564638 4 x2 stilled noted on 09/10 u/s - no bleeding Obesity [id number] Inform at 10/06 visit will need NSTs! Mild pre-eclampsia [id number] h /o- ASA Family history of complete trisomy 21 syndrome 164772549 Female sterilization [id number] 6 weeks post - to have private insurance at that time -induced hypertension 02/01/2021 [id number] delivery 37 wee ks Premature delivery [id number] 3 2 wk. Venous abernathy [id number] 01/28 mu ltiple Heath Calculation Initial Heath Date Initial Exam Date Initial Exam Provider Initial Ultrasound Date Last Menstrual Period Date Ultra Sound Weeks Gestation 04/01/2021 09/10/2020 08/20/2020 8 Eighteen To Twenty Week Heath Update Ultra Sound Date Fundal Height At Umbil Quickening Date Ultra Sound Latest Weeks Gestation Final Heath Confirmed By Final Heath Confirmed Date Final Heath Date Ultra Sound Latest Days Gestation 0 [email or web address] 09/10/2020 04/01/20 21 0 Pre- Flowsheet Flowsheet Date 09/10/2020 Ocampo Score Blood Edema Fundus Height Fundus Units Glucose Ketones Leukocytes Nitrite Labor Signs Protein Cervic Dilation Cervic Effacement Cervic Station 12 Type Weight in lbs Pre/Post Dialysis Refused Weight 276.248170306739 BP Diastolic BP Location Tested BP Systolic BP Type 77 R arm 121 sitting Fetus Heart Rate Present A 148 Fetus Movement Comments Patient is a 25-year-old gra milo 3 para 06/18/2010 weeks gestation. She has a history of preeclampsia which resulted in a . She is taking baby aspirin. She recently delivered a boy. Was within the last 6 months. She has had vaginal births with 2 her 2 previous pregnancies. She will begin routine care. Flowsheet Date 10/06/2020 Ocampo Score Blood Edema Fundus Height Fundus Units Glucose Ketones Leukocytes Nitrite Labor Signs Protein Cervic Dilation Cervic Effacement Cervic Station none trace Type Weight in lbs Pre/Post Dialysis Refused Weight 276.897975329043 BP Diastolic BP Location Tested BP Systolic BP Type 88 130 Fetus Heart Rate Present A 156 Fetus Movement A No Comments Doing well. Pap collected to day. Flowsheet Date 11/03/2020 Ocampo Score Blood Edema Fundus Height Fundus Units Glucose Ketones Leukocytes Nitrite Labor Signs Protein Cervic Dilation Cervic Effacement Cervic Station Type Weight in lbs Pre/Post Dialysis Refused BP Diastolic BP Location Tested BP Systolic BP Type Fetus Heart Rate Present Fetus Movement Comments Flowsheet Date 11/03/2020 Ocampo Score Blood Edema Fundus Height Fundus Units Glucose Ketones Leukocytes Nitrite Labor Signs Protein Cervic Dilation Cervic Effacement Cervic Station none trace Type Weight in lbs Pre/Post Dialysis Refused Weight 276.558121414046 BP Diastolic BP Location Tested BP Systolic BP Type 77 120 Fetus Heart Rate Present Fetus Movement A No Comments Acid reflux. Discussed use o f pepcid. Baseline anatomy today. Await recommendations. Flowsheet Date 12/02/2020 Ocampo Score Blood Edema Fundus Height Fundus Units Glucose Ketones Leukocytes Nitrite Labor Signs Protein Cervic Dilation Cervic Effacement Cervic Station Type Weight in lbs Pre/Post Dialysis Refused BP Diastolic BP Location Tested BP Systolic BP Type Fetus Heart Rate Present Fetus Movement Comments Flowsheet Date 12/02/2020 Ocampo Score Blood Edema Fundus Height Fundus Units Glucose Ketones Leukocytes Nitrite Labor Signs Protein Cervic Dilation Cervic Effacement Cervic Station trace Type Weight in lbs Pre/Post Dialysis Refused Weight 282.212937792373 BP Diastolic BP Location Tested BP Systolic BP Type 76 120 Fetus Heart Rate Present Fetus Movement A Yes Comments Doing well. Growth u/s today . Plan growth q 4 weeks. Flowsheet Date 12/31/2020 Ocampo Score Blood Edema Fundus Height Fundus Units Glucose Ketones Leukocytes Nitrite Labor Signs Protein Cervic Dilation Cervic Effacement Cervic Station Type Weight in lbs Pre/Post Dialysis Refused BP Diastolic BP Location Tested BP Systolic BP Type Fetus Heart Rate Present Fetus Movement Comments Flowsheet Date 12/31/2020 Ocampo Score Blood Edema Fundus Height Fundus Units Glucose Ketones Leukocytes Nitrite Labor Signs Protein Cervic Dilation Cervic Effacement Cervic Station none trace Type Weight in lbs Pre/Post Dialysis Refused Weight 284.983154073683 BP Diastolic BP Location Tested BP Systolic BP Type 82 121 Fetus Heart Rate Present Fetus Movement A Yes Comments Doing well. Order given for rhogam and glucose. Hypoechoic focal area on u/s. Will await recommendations. Flowsheet Date 01/14/2021 Ocampo Score Blood Edema Fundus Height Fundus Units Glucose Ketones Leukocytes Nitrite Labor Signs Protein Cervic Dilation Cervic Effacement Cervic Station 32 Type Weight in lbs Pre/Post Dialysis Refused Weight 294.843654255904 BP Diastolic BP Location Tested BP Systolic BP Type 84 R arm 143 sitting 88 L arm 130 sitting [place] [address] Fetus Movement A Yes Comments nonspecific vision changes - not consistent with pree. No other Sx's of PREE. mildly elevated BP's today. Baseline pree labs today. Weekly visits. RTC in 5 days. h/o of early pree to monitor BP at home. Flowsheet Date 01/19/2021 Ocampo Score Blood Edema Fundus Height Fundus Units Glucose Ketones Leukocytes Nitrite Labor Signs Protein Cervic Dilation Cervic Effacement Cervic Station 29 Type Weight in lbs Pre/Post Dialysis Refused Weight 294.284395565603 BP Diastolic BP Location Tested BP Systolic BP Type 78 R arm 131 sitting Fetus Heart Rate Present A 145 Fetus Movement Comments Blood pressure is well contr olled, she wants tubal ligation. We could do that at 6 weeks. She is going to have Chronicity at that time. Flowsheet Date 01/28/2021 Ocampo Score Blood Edema Fundus Height Fundus Units Glucose Ketones Leukocytes Nitrite Labor Signs Protein Cervic Dilation Cervic Effacement Cervic Station Type Weight in lbs Pre/Post Dialysis Refused BP Diastolic BP Location Tested BP Systolic BP Type Fetus Heart Rate Present Fetus Movement Comments Flowsheet Date 02/01/2021 Ocampo Score Blood Edema Fundus Height Fundus Units Glucose Ketones Leukocytes Nitrite Labor Signs Protein Cervic Dilation Cervic Effacement Cervic Station Type Weight in lbs Pre/Post Dialysis Refused BP Diastolic BP Location Tested BP Systolic BP Type 90 134 78 132 Fetus Heart Rate Present Fetus Movement Comments Flowsheet Date 02/04/2021 Ocampo Score Blood Edema Fundus Height Fundus Units Glucose Ketones Leukocytes Nitrite Labor Signs Protein Cervic Dilation Cervic Effacement Cervic Station Type Weight in lbs Pre/Post Dialysis Refused BP Diastolic BP Location Tested BP Systolic BP Type Fetus Heart Rate Present Fetus Movement Comments Flowsheet Date 02/04/2021 Ocampo Score Blood Edema Fundus Height Fundus Units Glucose Ketones Leukocytes Nitrite Labor Signs Protein Cervic Dilation Cervic Effacement Cervic Station 32 trace Type Weight in lbs Pre/Post Dialysis Refused Weight 297.292735298622 BP Diastolic BP Location Tested BP Systolic BP Type 79 R arm 133 sitting Fetus Heart Rate Present A 144 Fetus Movement A Yes Comments Blood pressures are stable. Patient does not appear to have preeclampsia at this time. Continue testing weekly labs. She has reassuring testing today. Flowsheet Date 02/08/2021 Ocampo Score Blood Edema Fundus Height Fundus Units Glucose Ketones Leukocytes Nitrite Labor Signs Protein Cervic Dilation Cervic Effacement Cervic Station Type Weight in lbs Pre/Post Dialysis Refused BP Diastolic BP Location Tested BP Systolic BP Type 81 123 Fetus Heart Rate Present Fetus Movement Comments Flowsheet Date 02/11/2021 Ocampo Score Blood Edema Fundus Height Fundus Units Glucose Ketones Leukocytes Nitrite Labor Signs Protein Cervic Dilation Cervic Effacement Cervic Station Type Weight in lbs Pre/Post Dialysis Refused BP Diastolic BP Location Tested BP Systolic BP Type Fetus Heart Rate Present Fetus Movement Comments Flowsheet Date 02/11/2021 Ocampo Score Blood Edema Fundus Height Fundus Units Glucose Ketones Leukocytes Nitrite Labor Signs Protein Cervic Dilation Cervic Effacement Cervic Station 34 Type Weight in lbs Pre/Post Dialysis Refused Weight 300.798916562432 BP Diastolic BP Location Tested BP Systolic BP Type 81 R arm 126 sitting Fetus Heart Rate Present A 142 Fetus Movement Comments reactive NSTs, persistence m ild elevations of blood pressure, she is checking her blood pressure at home, she occasionally sees spots, Flowsheet Date 02/15/2021 Ocampo Score Blood Edema Fundus Height Fundus Units Glucose Ketones Leukocytes Nitrite Labor Signs Protein Cervic Dilation Cervic Effacement Cervic Station Type Weight in lbs Pre/Post Dialysis Refused BP Diastolic BP Location Tested BP Systolic BP Type 80 R arm 141 sitting Fetus Heart Rate Present Fetus Movement Comments Flowsheet Date 02/18/2021 Ocampo Score Blood Edema Fundus Height Fundus Units Glucose Ketones Leukocytes Nitrite Labor Signs Protein Cervic Dilation Cervic Effacement Cervic Station none trace Type Weight in lbs Pre/Post Dialysis Refused Weight 299.2252697635 BP Diastolic BP Location Tested BP Systolic BP Type 78 138 Fetus Heart Rate Present Fetus Movement A Yes Comments Encouraged covid, tdap, and flu shots. Discussed acog recommendations. Pt is considering. Denies h/a, v/d or e/p. Flowsheet Date 02/18/2021 Ocampo Score Blood Edema Fundus Height Fundus Units Glucose Ketones Leukocytes Nitrite Labor Signs Protein Cervic Dilation Cervic Effacement Cervic Station Type Weight in lbs Pre/Post Dialysis Refused BP Diastolic BP Location Tested BP Systolic BP Type Fetus Heart Rate Present Fetus Movement Comments Flowsheet Date 02/22/2021 Ocampo Score Blood Edema Fundus Height Fundus Units Glucose Ketones Leukocytes Nitrite Labor Signs Protein Cervic Dilation Cervic Effacement Cervic Station Type Weight in lbs Pre/Post Dialysis Refused BP Diastolic BP Location Tested BP Systolic BP Type 63 R arm 119 sitting Fetus Heart Rate Present Fetus Movement Comments Flowsheet Date 02/25/2021 Ocampo Score Blood Edema Fundus Height Fundus Units Glucose Ketones Leukocytes Nitrite Labor Signs Protein Cervic Dilation Cervic Effacement Cervic Station Type Weight in lbs Pre/Post Dialysis Refused BP Diastolic BP Location Tested BP Systolic BP Type Fetus Heart Rate Present Fetus Movement Comments Flowsheet Date 02/25/2021 Ocampo Score Blood Edema Fundus Height Fundus Units Glucose Ketones Leukocytes Nitrite Labor Signs Protein Cervic Dilation Cervic Effacement Cervic Station Type Weight in lbs Pre/Post Dialysis Refused BP Diastolic BP Location Tested BP Systolic BP Type Fetus Heart Rate Present Fetus Movement Comments Flowsheet Date 02/25/2021 Ocampo Score Blood Edema Fundus Height Fundus Units Glucose Ketones Leukocytes Nitrite Labor Signs Protein Cervic Dilation Cervic Effacement Cervic Station none 37 trace Type Weight in lbs Pre/Post Dialysis Refused Weight 301.376836000185 BP Diastolic BP Location Tested BP Systolic BP Type 74 138 Fetus Heart Rate Present A 130 Fetus Movement A Yes Comments Doing well. Planning 37 week delivery d/t GHTN. Denies symptoms. Precautions given. Labor precautions given. Pre admit is scheduled for next week. is vertex now! Appropriate growth. Pt has requested that I do her delivery since I delivered her last baby. I will plan to cover. Flowsheet Date 03/01/2021 Ocampo Score Blood Edema Fundus Height Fundus Units Glucose Ketones Leukocytes Nitrite Labor Signs Protein Cervic Dilation Cervic Effacement Cervic Station Type Weight in lbs Pre/Post Dialysis Refused BP Diastolic BP Location Tested BP Systolic BP Type 75 R arm 146 sitting Fetus Heart Rate Present Fetus Movement Comments Flowsheet Date 03/03/2021 Ocampo Score Blood Edema Fundus Height Fundus Units Glucose Ketones Leukocytes Nitrite Labor Signs Protein Cervic Dilation Cervic Effacement Cervic Station Type Weight in lbs Pre/Post Dialysis Refused BP Diastolic BP Location Tested BP Systolic BP Type Fetus Heart Rate Present Fetus Movement Comments Flowsheet Date 03/04/2021 Ocampo Score Blood Edema Fundus Height Fundus Units Glucose Ketones Leukocytes Nitrite Labor Signs Protein Cervic Dilation Cervic Effacement Cervic Station neg trace 36 trace Type Weight in lbs Pre/Post Dialysis Refused Weight 303.545474836896 BP Diastolic BP Location Tested BP Systolic BP Type 86 137 Fetus Heart Rate Present A 145 Fetus Movement A Yes Comments to schedule induction for 1 week from today. Denies any contractions, loss of fluid, vaginal bleeding. Infant is vertex. Did not check cervix today, group B strep was performed. Flowsheet Date 03/08/2021 Ocampo Score Blood Edema Fundus Height Fundus Units Glucose Ketones Leukocytes Nitrite Labor Signs Protein Cervic Dilation Cervic Effacement Cervic Station Type Weight in lbs Pre/Post Dialysis Refused BP Diastolic BP Location Tested BP Systolic BP Type Fetus Heart Rate Present Fetus Movement Comments Flowsheet Date 03/18/2021 Ocampo Score Blood Edema Fundus Height Fundus Units Glucose Ketones Leukocytes Nitrite Labor Signs Protein Cervic Dilation Cervic Effacement Cervic Station Type Weight in lbs Pre/Post Dialysis Refused Weight 283.988747342193 BP Diastolic BP Location Tested BP Systolic BP Type 85 134 Fetus Heart Rate Present Fetus Movement Comments Menstrual History Last Menstrual Date Menses Monthly On Bcp Conception Prior Menses Frequency Hcg Plus Date Menarche Onset Age Genetic Screening And Infection History Question Response Note Mental Retardation/Autism false Patient's Age Will Be 35 Years Or Older At Estim ated Date of Delivery false Thalassemia (Jamaican, Danish, Mediterranean, Or Background): MCV < 80 false Neural Tube Defect (Meningomyelocele, Spina Bifi da, Or Anencephaly) false Congenital Heart Defect false Down Syndrome false Jn-Sachs (eg, Worship, Cajun, Ghanaian-Sri Lankan) f alse Yi Disease false Sickle Cell Disease Or Trait () false Hemophilia Or Other Blood Disorders false Muscular Dystrophy false Cystic Fibrosis false [place] false Intellectual Disability/Autism false If Yes, Was Person Tested For Fragile X? false Other Inherited Genetic Or Chromosomal Disorder false Maternal Metabolic Disorder (eg, Type 1 Diabetes , PKU) false Patient Or Baby's Father Had A Child With Defects Not Listed Above false Recurrent Loss, Or A Stillbirth false Medications (including Suppl ements, Vitamins, Herbs, OTC Drugs), Illicit/Recreational Drugs, Alcohol false If Yes, Agent(s) And Strength/Dosage false Any Other Genetic History false Live With Someone With TB Or Exposed To TB false Patient Or Partner Has History Of Genital Herpes false Rash Or Viral Illness Since Last Menstrual Perio d false History Of STD, Gonorrhea, Chlamydia, HPV, Syphi lis false Other Infection History false History of HIV false History of Hepatitis false Prior GBS-infected child false Hemoglobinopathy Or Carrier false Other Structural Defect false Recent Travel History Outside of Country false Delivery Information Delivery Date Delivery Type Labor Anesthesia Weeks Gestation Incision Type Labor Labor Length Hrs Delivered By Post Complications Tubal Sterilization Discharge Date Comments 1 Induce d Regional-Ep idural 37 false Dalila Johnson CNM GHTN & Maternal Obesity Discharge Information Feeding Method Contraceptive Method Maternal HG B and HCT Levels
[2025-03-17 19:24] LABS: Hematocrit 43.8 % (35.0-49.0); Hemoglobin 14.0 g/dL (12.0-15.0); Immature Granulocyte Percent A 0.2 % (0.0-0.0); Lymphocytes Absolute Auto 2.52 K/mm3 (1.10-4.50); Mean Corpuscular HGB Conc 32.0 g/dL (32-36); Mean Corpuscular Hemoglobin 30.4 pg (27.0-31.0); Mean Corpuscular Volume 95.0 fL (78.0-102.0); Nucleated Red Blood Cells Absolute Auto 0.00 K/mm3 (0.00-0.00); Nucleated Red Blood Cells Perc 0.0 % (0-0.0); Platelet Count Result 263 K/mm3 (150-420); Red Blood Count 4.61 M/mm3 (4.20-5.40); White Blood Count 8.1 K/mm3 (4.8-10.8)
[2025-03-17 19:30] LABS: Alanine Aminotransferase 38 U/L (6-35); Albumin Level 4.4 g/dL (3.5-5.1); Alkaline Phosphatase 104 U/L (38-126); Anion Gap 8 mmol/L (4-12); Aspartate Amino Transferase 30 U/L (14-36); Bilirubin,Total 1.3 mg/dL (0.2-1.3); Blood Urea Nitrogen 13 mg/dL (7-17); Calcium 8.8 mg/dL (8.4-10.2); Carbon Dioxide 26 mmol/L (22-30); Chloride 108 mmol/L (98-107); Cholesterol 186 mg/dL (0-200); Estimated Glomerular Filt Rate > 60; Glucose 93 mg/dL (65-110); HDL Direct 42 mg/dL; Osmolality Calculated 294 mOsm/kg (285-295); Potassium 4.3 mmol/L (3.4-5.0); Sodium 142 mmol/L (137-145); Total Protein 7.2 g/dL (6.3-8.2); Triglycerides 106 mg/dL (<150)
[2025-03-17 19:39] LABS: Hemoglobin A1C 5.0 % (<5.7)
== END 2025-03-17 11:12 | disposition home or self-care (01) ==
PROVIDERS: PCP Registered Nurse; Visit Provider Registered Nurse
DX: E66.813 Obesity, class 3 (principal)
CPT/HCPCS: 36415; 80053; 80061; 83036; 85025